=== PATIENT | male | born 1980 | race Caucasian/White ===

== ENCOUNTER → 2016-12-06 | Outpatient (CLI) | payer MEDICAID | LOC: RAD 09:57 | PROVIDERS: ATTEND Specialist | DX: C67.9 Malignant neoplasm of bladder, unspecified (principal) | CPT/HCPCS: 74177; 82565 ==

== ENCOUNTER 2016-12-25 11:16 | Emergency (ER) | payer MEDICAID ==
[2016-12-25] MEDS ORDERED: OXYCODONE-ACETAMINOPHEN 5-325 MG TABLET PO ONE (11:40)
--- NOTE | 2016-12-25 11:42 | ER Document Report ---
ED Medical Screen (RME) - General Chief Complaint: Urinary Problem Stated Complaint: BLOOD IN URINE Mode of Arrival: Ambulatory Information source: Patient Notes: Patient presents to the emergency department with complaints of left-sided flank pain history of bladder cancer. No chemo for the past year reports last CT and he was clear. This morning woke up with hematuria. Patient's is very emotional crying worried the bladder cancer is back. TRAVEL OUTSIDE OF THE [place] IN LAST 30 DAYS: No - Related Data Allergies/Adverse Reactions: No Known Allergies Allergy (Verified 12/25/16 11:35) Past Medical History - Past Medical History Cardiac Medical History: Reports: Hx Hypertension Renal/ Medical History: Denies: Hx Peritoneal Dialysis Past Surgical History: Reports: Hx Urinary Tract Surgery - bladder 01/16/16 --[facility] - Immunizations Hx Diphtheria, Pertussis, Tetanus Vaccination: Yes Physical Exam - Vital signs Vitals: Temp Pulse Resp BP Pulse Ox 98.0 F 80 12 127/81 H 100 12/25/16 11:28 12/25/16 11:28 12/25/16 11:28 12/25/16 11:28 12/25/16 11:28 Course - Vital Signs Vital signs: Temp Pulse Resp BP Pulse Ox 98.0 F 80 12 127/81 H 100 12/25/16 11:28 12/25/16 11:28 12/25/16 11:28 12/25/16 11:28 12/25/16 11:28
[2016-12-25 12:24] LABS: APPEARANCE,URINE SLIGHTLY-CLOUDY; BILIRUBIN,URINE NEGATIVE (NEGATIVE); GLUCOSE, URINE NEGATIVE (NEGATIVE); KETONES,URINE NEGATIVE (NEGATIVE); LEUKOCYTE ESTERASE,URINE TRACE (NEGATIVE); NITRITE,URINE NEGATIVE (NEGATIVE); PROTEIN,URINE 100 mg/dL (NEGATIVE); URINE SPECIFIC GRAVITY 1.008; UROBILINOGEN,URINE NEGATIVE mg/dL (<2.0)
[2016-12-25 12:46] LABS: ABSOLUTE EOSINOPHILS # (AUTO) 0.1 10^3/uL (0.0-0.6); ABSOLUTE LYMPHOCYTES (AUTO) 3.8 10^3/uL (0.5-4.7); ABSOLUTE MONOCYTES (AUTO) 0.9 10^3/uL (0.1-1.4); ABSOLUTE NEUT (AUTO) 8.3 10^3/uL (1.7-8.2); BASOPHILS % (AUTO) 0.2 % (0-2); EOSINOPHILS % (AUTO) 0.9 % (0-6); HEMATOCRIT 48.7 % (37.9-51.0); HEMOGLOBIN 16.8 g/dL (13.5-17.0); HGB HCT DIFFERENCE 1.7; LYMPHOCYTES % (AUTO) 28.9 % (13-45); MEAN CORPUSCULAR HEMOGLOBIN 32.2 pg (27.0-33.4); MEAN CORPUSCULAR HGB CONC 34.4 g/dL (32.0-36.0); MEAN CORPUSCULAR VOLUME 94 fl (80-97); MONOCYTES % (AUTO) 6.6 % (3-13); RED BLOOD COUNT 5.21 10^6/uL (4.35-5.55); SEGMENTED NEUTROPHILS % (AUTO) 63.4 % (42-78)
[2016-12-25 12:51] LABS: PROTHROMBIN TIME 12.7 SEC (11.4-15.4)
[2016-12-25 12:52] LABS: PARTIAL THROMBOPLASTIN TIME 32.6 SEC (23.5-35.8)
[2016-12-25 12:53] LABS: ADD ON TESTING BLD IN LAB ACKNOWLEDGE
[2016-12-25 13:07] LABS: ALANINE AMINOTRANSFERASE 218 U/L (21-72); ALBUMIN 5.6 g/dL (3.5-5.0); ALKALINE PHOSPHATASE 110 U/L (38-126); ANION GAP 16 (5-19); ASPARTATE AMINO TRANSFERASE 158 U/L (17-59); BILIRUBIN,TOTAL 1.2 mg/dL (0.2-1.3); BLOOD UREA NITROGEN 19 mg/dL (7-20); CALCIUM 10.5 mg/dL (8.4-10.2); CARBON DIOXIDE 19 mmol/L (22-30); CHLORIDE 113 mmol/L (98-107); CREATININE RESULT 1.47 mg/dL (0.52-1.25); GLUCOSE 88 mg/dL (75-110); POTASSIUM 4.8 mmol/L (3.6-5.0); SODIUM 148.2 mmol/L (137-145); TOTAL PROTEIN 9.8 g/dL (6.3-8.2)
[2016-12-25 13:12] LABS: ALCOHOL 255 mg/dL (NONE DETECTED)
[2016-12-25 13:22] LABS: URINE BARBITURATES SCREEN NEGATIVE; URINE METHADONE SCREEN NEGATIVE; URINE OPIATES LOW NEGATIVE; URINE PHENCYCLIDINE SCREEN NEGATIVE
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
[2016-12-25 16:18] VITALS: BP 128/80
== END 2016-12-25 16:18 | disposition home or self-care (01) ==
LOC: ER 11:16
DX: R31.9 Hematuria, unspecified (principal); R10.9 Unspecified abdominal pain; F17.200 Nicotine dependence, unspecified, uncomplicated; I10 Essential (primary) hypertension; F10.129 Alcohol abuse with intoxication, unspecified; Y90.8 Blood alcohol level of 240 mg/100 ml or more; Y04.0XXA Assault by unarmed brawl or fight, initial encounter; Z85.51 Personal history of malignant neoplasm of bladder; Z90.6 Acquired absence of other parts of urinary tract
CPT/HCPCS: 36415; 74176; 80053; 80307; 81001; 85025; 85610; 85730; 99284

== ENCOUNTER 2017-03-01 10:25 | Emergency (ER) | payer MEDICAID ==
[2017-03-01 10:41] VITALS: BP 126/80
--- NOTE | 2017-03-01 11:56 | ER Document Report ---
ED Medical Screen (RME) - General Chief Complaint: Flank Pain Stated Complaint: VOMITING AND FLANK PAIN Notes: Patient says his left kidney is "on fire". He says is been very painful for the past couple of days. Patient has significant past history with a diagnosis of bladder cancer with subsequent surgical removal of his bladder in 2014. He is currently followed at [facility] in [place] for this condition, last visit was several months ago.. The says that he's been told he has chronic hydronephrosis of the left kidney. He self catheterizes himself 3-4 times a day as needed. Has been to this ER for the same condition. Patient has had some coughing and says he's seen some blood with coughing. Patient denies any urinary burning or blood present. Has not had a fever. Patient has a history of anxiety and attention deficit disorder, on Klonopin and Adderall. Is scheduled to be seen at [facility], on March 10, but says he doesn't know if he can afford the $200 initial feet. TRAVEL OUTSIDE OF THE [place] IN LAST 30 DAYS: No - Related Data Allergies/Adverse Reactions: No Known Allergies Allergy (Verified 03/01/17 10:37) Past Medical History - Past Medical History Cardiac Medical History: Reports: Hx Hypertension Renal/ Medical History: Denies: Hx Peritoneal Dialysis Past Surgical History: Reports: Hx Urinary Tract Surgery - bladder 01/16/16 --[facility] - Immunizations Hx Diphtheria, Pertussis, Tetanus Vaccination: Yes Physical Exam - Vital signs Vitals: Temp Pulse Resp BP Pulse Ox 98.7 F 98 20 126/80 H 99 03/01/17 10:39 03/01/17 10:39 03/01/17 10:39 03/01/17 10:39 03/01/17 10:39 Course - Vital Signs Vital signs: Temp Pulse Resp BP Pulse Ox 98.7 F 98 20 126/80 H 99 03/01/17 10:39 03/01/17 10:39 03/01/17 10:39 03/01/17 10:39 03/01/17 10:39
[2017-03-01 12:10] LABS: ABSOLUTE BASOPHILS # (AUTO) 0.1 10^3/uL (0.0-0.2); ABSOLUTE EOSINOPHILS # (AUTO) 0.8 10^3/uL (0.0-0.6); ABSOLUTE LYMPHOCYTES (AUTO) 2.8 10^3/uL (0.5-4.7); ABSOLUTE NEUT (AUTO) 10.1 10^3/uL (1.7-8.2); BASOPHILS % (AUTO) 0.5 % (0-2); EOSINOPHILS % (AUTO) 5.7 % (0-6); HEMOGLOBIN 15.4 g/dL (13.5-17.0); HGB HCT DIFFERENCE 1.2; MEAN CORPUSCULAR HGB CONC 34.2 g/dL (32.0-36.0); MEAN CORPUSCULAR VOLUME 94 fl (80-97); MONOCYTES % (AUTO) 6.9 % (3-13); RED CELL DISTRIBUTION WIDTH 13.7 % (11.5-14.0); SEGMENTED NEUTROPHILS % (AUTO) 67.9 % (42-78); WHITE BLOOD COUNT 14.8 10^3/uL (4.0-10.5)
[2017-03-01 12:26] LABS: AMORPHOUS SEDIMENT,URINE TRACE /HPF; APPEARANCE,URINE CLOUDY; BILIRUBIN,URINE NEGATIVE (NEGATIVE); GLUCOSE, URINE NEGATIVE (NEGATIVE); KETONES,URINE NEGATIVE (NEGATIVE); LEUKOCYTE ESTERASE,URINE MODERATE (NEGATIVE); NITRITE,URINE NEGATIVE (NEGATIVE); PROTEIN,URINE 30 mg/dL (NEGATIVE); URINE SPECIFIC GRAVITY 1.009; UROBILINOGEN,URINE NEGATIVE mg/dL (<2.0)
[2017-03-01 12:28] LABS: ALANINE AMINOTRANSFERASE 98 U/L (21-72); ALBUMIN 5.2 g/dL (3.5-5.0); ALKALINE PHOSPHATASE 129 U/L (38-126); ANION GAP 15 (5-19); ASPARTATE AMINO TRANSFERASE 64 U/L (17-59); BILIRUBIN,DIRECT 0.5 mg/dL (0.0-0.4); BILIRUBIN,TOTAL 2.3 mg/dL (0.2-1.3); BLOOD UREA NITROGEN 20 mg/dL (7-20); CALCIUM 10.8 mg/dL (8.4-10.2); CARBON DIOXIDE 25 mmol/L (22-30); CHLORIDE 106 mmol/L (98-107); CREATININE RESULT 1.38 mg/dL (0.52-1.25); GLUCOSE 95 mg/dL (75-110); LIPASE 37.8 U/L (23-300); POTASSIUM 4.5 mmol/L (3.6-5.0); SODIUM 145.7 mmol/L (137-145); TOTAL PROTEIN 9.3 g/dL (6.3-8.2)
[2017-03-01 14:09] LABS: URINE BARBITURATES SCREEN NEGATIVE; URINE METHADONE SCREEN NEGATIVE; URINE OPIATES LOW NEGATIVE; URINE PHENCYCLIDINE SCREEN NEGATIVE
== END 2017-03-01 13:00 | disposition left against medical advice (07) ==
LOC: ER 10:25
DX: Z53.9 Procedure and treatment not carried out, unspecified reason (principal); R10.9 Unspecified abdominal pain; R11.10 Vomiting, unspecified
CPT/HCPCS: 36415; 71020; 74176; 80053; 80307; 81001; 83690; 85025; 99281

== ENCOUNTER 2017-03-02 09:45 | Emergency (ER) | payer MEDICAID ==
--- NOTE | 2017-03-02 10:36 | ER Document Report ---
ED Medical Screen (RME) - General Chief Complaint: Flank Pain Stated Complaint: FLANK PAIN Notes: Patient was seen here last night, but left before his treatment was complete. He was complaining of left flank pain. A significant history is that he had his bladder removed for cancer of the bladder. He's had subsequent problems with hydronephrosis of the left kidney and ureter. He is followed at [facility] in [place]. His results from last night's CT scan of the abdomen and chest x- ray and lab work revealed a likely UTI, elevated white count, a nodule in both his left and right lungs, possible infiltrate in his lung, and a drug screen positive for benzos, marijuana, and cocaine. We had set this patient's chart aside with the intent to call him today to tell them to come back to finish his evaluation and treatment, and he just returned this morning on his own without being called. Says he left last night because it was too busy and he waited too long and also that he was scared of what the outcome of his workup might show. TRAVEL OUTSIDE OF THE [place] IN LAST 30 DAYS: No - Related Data Allergies/Adverse Reactions: No Known Allergies Allergy (Verified 03/01/17 10:37) Past Medical History - Past Medical History Cardiac Medical History: Reports: Hx Hypertension Renal/ Medical History: Denies: Hx Peritoneal Dialysis Past Surgical History: Reports: Hx Urinary Tract Surgery - bladder 01/16/16 --[facility] - Immunizations Hx Diphtheria, Pertussis, Tetanus Vaccination: Yes Physical Exam - Vital signs Vitals: Temp Pulse Resp BP Pulse Ox 98.2 F 97 20 117/76 96 03/02/17 10:00 03/02/17 10:03/02/17 10:00 03/02/17 10:00 03/02/17 10:00 Course - Vital Signs Vital signs: Temp Pulse Resp BP Pulse Ox 98.2 F 97 20 117/76 96 03/02/17 10:00 03/02/17 10:00 03/02/17 10:00 03/02/17 10:00 03/02/17 10:00
[2017-03-02 11:01] LABS: ABSOLUTE EOSINOPHILS # (AUTO) 1.1 10^3/uL (0.0-0.6); ABSOLUTE LYMPHOCYTES (AUTO) 3.1 10^3/uL (0.5-4.7); ABSOLUTE MONOCYTES (AUTO) 1.1 10^3/uL (0.1-1.4); ABSOLUTE NEUT (AUTO) 8.4 10^3/uL (1.7-8.2); BASOPHILS % (AUTO) 0.3 % (0-2); HEMATOCRIT 42.8 % (37.9-51.0); HGB HCT DIFFERENCE 2.2; LYMPHOCYTES % (AUTO) 22.4 % (13-45); MEAN CORPUSCULAR HEMOGLOBIN 32.3 pg (27.0-33.4); MEAN CORPUSCULAR HGB CONC 34.9 g/dL (32.0-36.0); MEAN CORPUSCULAR VOLUME 93 fl (80-97); MONOCYTES % (AUTO) 7.8 % (3-13); RED BLOOD COUNT 4.63 10^6/uL (4.35-5.55); SEGMENTED NEUTROPHILS % (AUTO) 61.5 % (42-78); WHITE BLOOD COUNT 13.7 10^3/uL (4.0-10.5)
[2017-03-02 11:10] LABS: ALANINE AMINOTRANSFERASE 76 U/L (21-72); ALBUMIN 4.7 g/dL (3.5-5.0); ALKALINE PHOSPHATASE 119 U/L (38-126); ANION GAP 16 (5-19); ASPARTATE AMINO TRANSFERASE 46 U/L (17-59); BILIRUBIN,DIRECT 0.3 mg/dL (0.0-0.4); BLOOD UREA NITROGEN 22 mg/dL (7-20); CALCIUM 10.1 mg/dL (8.4-10.2); CARBON DIOXIDE 22 mmol/L (22-30); CHLORIDE 107 mmol/L (98-107); CREATININE RESULT 1.49 mg/dL (0.52-1.25); GLUCOSE 93 mg/dL (75-110); LIPASE 48.9 U/L (23-300); POTASSIUM 4.2 mmol/L (3.6-5.0); SODIUM 144.9 mmol/L (137-145); TOTAL PROTEIN 8.2 g/dL (6.3-8.2)
[2017-03-02 11:15] LABS: APPEARANCE,URINE SLIGHTLY-CLOUDY; BILIRUBIN,URINE NEGATIVE (NEGATIVE); GLUCOSE, URINE NEGATIVE (NEGATIVE); KETONES,URINE NEGATIVE (NEGATIVE); LEUKOCYTE ESTERASE,URINE LARGE (NEGATIVE); NITRITE,URINE NEGATIVE (NEGATIVE); PROTEIN,URINE 30 mg/dL (NEGATIVE); URINE SPECIFIC GRAVITY 1.009; UROBILINOGEN,URINE NEGATIVE mg/dL (<2.0)
--- NOTE | 2017-03-02 11:21 | ER Document Report ---
ED GI/ - General Mode of Arrival: Ambulatory Information source: Patient TRAVEL OUTSIDE OF THE [place] IN LAST 30 DAYS: No - HPI Patient complains to provider of: Flank pain - left Onset: Other - 1 week ago Location: Left flank Associated symptoms: Other - see notes above <BANDAR OSEI - Last Filed: 03/02/17 11:30> <SHARITA MARTIN - Last Filed: 03/02/17 12:13> - General Chief Complaint: Flank Pain Stated Complaint: FLANK PAIN Notes: 36 year old male with history of bladder cancer (2014) presents to the ED complaining of left CVA tenderness that started 1 week ago and has gotten progressively worse. Patient reports that he "knows its kidney pain" since he has a history of kidney infections and UTIs. Patient self-caths 3-4 times a day secondary to the bladder surgery. Patient is additionally complaining of vomiting and coughing up blood. Patient was seen at the ED yesterday where a CT scan and Xray were preformed and showed possible UTI, but left because it was too busy. Patient is currently taking adderall, klonopin, paxil, and 5 mg percocet. Patient reports that he is trying to wean off the pain medications and is taking significantly less medication than he was before. Patient receives follow up care to his bladder cancer at [facility] and see's Dr. Mares as his local oncologist. Patient has an appointment with Dr. Mares in a couple days. (BANDAR OSEI) - Related Data Allergies/Adverse Reactions: No Known Allergies Allergy (Verified 03/01/17 10:37) Past Medical History - General Information source: Patient - Social History Smoking Status: Current Every Day Smoker Family History: Reviewed & Not Pertinent, Malignancy - Past Medical History Cardiac Medical History: Reports: Hx Hypertension Renal/ Medical History: Denies: Hx Peritoneal Dialysis Malignancy Medical History: Reports Other - Bladder Cancer Past Surgical History: Reports: Hx Urinary Tract Surgery - bladder 01/16/16 --[facility] - Immunizations Hx Diphtheria, Pertussis, Tetanus Vaccination: Yes <BANDAR OSEI - Last Filed: 03/02/17 11:30> Review of Systems - Review of Systems Constitutional: No symptoms reported EENT: No symptoms reported Cardiovascular: No symptoms reported Respiratory: See HPI, Hemoptysis Gastrointestinal: See HPI, Vomiting Genitourinary: See HPI, Flank pain - left Male Genitourinary: No symptoms reported Musculoskeletal: No symptoms reported Skin: No symptoms reported Hematologic/Lymphatic: No symptoms reported Neurological/Psychological: No symptoms reported -: Yes All other systems reviewed and negative <BANDAR OSEI - Last Filed: 03/02/17 11:30> Physical Exam <BANDAR OSEI - Last Filed: 03/02/17 11:30> <SHARITA MARTIN - Last Filed: 03/02/17 12:13> - Vital signs Vitals: Temp Pulse Resp BP Pulse Ox 98.2 F 97 20 117/76 96 03/02/17 10:00 03/02/17 10:00 03/02/17 10:00 03/02/17 10:00 03/02/17 10:00 - Notes Notes: GENERAL: VS as per nursing doc. Well-appearing, well-nourished and in no acute distress. HEAD: Atraumatic, normocephalic. EYES: Sclera anicteric, no conjunctival injection or discharge. ENT: Moist mucous membranes. NECK: Supple without lymphadenopathy. LUNGS: Breath sounds clear to auscultation bilaterally and equal. No wheezes rales or rhonchi. HEART: Regular rate and rhythm without murmurs. ABDOMEN: Soft, some tenderness as you approach the very far left abdomen. No guarding, no rebound. No masses appreciated. No [place] sign. BACK: Exquisite tenderness to even light skin palpation of the left CVA and left lateral abdomen. EXTREMITIES: Normal range of motion, no calf tenderness, no edema. NEUROLOGICAL: Cranial nerves grossly intact. Normal speech. Normal sensory and motor exams. No gross cerebellar abnormalities. PSYCH: Normal mood, normal affect. SKIN: Warm, dry, normal turgor, no lesions noted. (SHARITA MARTIN) Course - Laboratory Result Diagrams: 03/02/17 10:39 03/02/17 10:39 <FARNAZBANDAR - Last Filed: 03/02/17 11:30> - Laboratory Result Diagrams: 03/02/17 10:39 03/02/17 10:39 <SHARITA MARTIN - Last Filed: 03/02/17 12:13> - Re-evaluation Re-evalutation: 03/02/17 11:37 Records reviewed. His creatinine appears mostly stable. White blood cell count continues to be elevated. With his left flank pain we will treat this as pyelonephritis. I did review the controlled substance database. Patient states he only has 2-3 pain pills left. It appears he has been weaning down slowly off the oxycodone over the months and at one point this year was on fentanyl patch. Concerning though was he had 30 Percocet 5 mg prescribed and filled 6 days ago. As well his drug screen was positive for marijuana and cocaine. He needs to follow up regarding the pulmonary nodules and hemoptysis of course. I will discuss lifestyle changes with the patient as well. He voices understanding of follow-up needs and will see Dr. Mares in follow-up. 03/02/17 12:04 Discussed with patient findings. Discussed with him as well by Modifications As Noted. He States He Has Been Taking More Percocet Secondary to the Pain but He Was Able to Mow Yesterday. He Has Had a Little Bit of Cough No Further Hemoptysis. Will Place Him on Levaquin to Cover Both. (SHARITA MARTIN) - Vital Signs Vital signs: Temp Pulse Resp BP Pulse Ox 98.2 F 97 20 117/76 96 03/02/17 10:00 03/02/17 10:00 03/02/17 10:00 03/02/17 10:00 03/02/17 10:00 - Laboratory Laboratory results interpreted by ri: 03/02/17 03/02/17 03/02/17 10:39 10:39 10:39 WBC 13.7 H Eosinophils % 8.0 H Absolute Neutrophils 8.4 H Absolute Eosinophils 1.1 H BUN 22 H Creatinine 1.49 H Est GFR (Non-Af Amer) 54 L Total Bilirubin 2.0 H ALT 76 H Urine Protein 30 H Ur Leukocyte Esterase LARGE H Discharge <BANDAR OSEI - Last Filed: 03/02/17 11:30> <SHARITA MARTIN - Last Filed: 03/02/17 12:13> - Discharge Clinical Impression: Pyelonephritis, acute, Abnormal drug screen, Pulmonary nodule Condition: Good Disposition: HOME, SELF-CARE Additional Instructions: You need to follow up with [facility] as well for follow-up of the pulmonary nodules. Contact Dr. Mares tomorrow for follow-up arrangements as well. Return for worsening or concern. All medications prescribed should be taken as directed on the label. Any medication may cause side effects. If an adverse effect occurs, notify your doctor or return to the emergency room.~ Narcotics or sedatives may cause drowsiness, therefore, you should not drive, operate machinery, climb ladders, etc. Alcohol should never be used while taking these medications.~ Pain medications also can cause significant constipation so you should use a stool softener if you are using any significant amount.~ Antibiotics should be taken until the entire amount is finished. Unless specifically told otherwise, continue any routine medicines like blood pressure pills, hormones, etc. Be sure you have informed us about any medicines you are taking and any allergies. Also, ensure you let your pharmacy and physician know of any medication changes or additional medications during the next business day to help keep records consistent and ensure your medication safety. Prescriptions: Promethazine HCl [Phenergan 25 mg Tablet] 25 mg PO Q4HP PRN #10 tablet PRN Reason: Levofloxacin [Levaquin 750 mg Tablet] 750 mg PO DAILY #10 tablet Referrals: JAZMIN MARES MD [ACTIVE STAFF] - Follow up tomorrow Scribe Documentation - Scribe Written by Riley:: Riley Hahn, 03/02/2017 1130 acting as scribe for :: Yasmin <BANDAR OSEI - Last Filed: 03/02/17 11:30>
[2017-03-02] MEDS ORDERED: MORPHINE SULFATE 10 MG/ML INJ IV ONE (11:23)
[2017-03-02] MEDS ORDERED: ONDANSETRON HCL INJ/PF 4 MG/2 ML SDV IV ONE (11:24)
[2017-03-02] MEDS ORDERED: CEFTRIAXONE INJ 1000 MG VIAL IV ONE (11:24)
[2017-03-02] MEDS ORDERED: NORMAL SALINE 1000 ML 1,000 ML IV ONE (11:47)
[2017-03-02 12:52] VITALS: BP 128/67
== END 2017-03-02 13:10 | disposition home or self-care (01) ==
LOC: ER 09:45
DX: N12 Tubulo-interstitial nephritis, not specified as acute or chronic (principal); R91.1 Solitary pulmonary nodule; R10.9 Unspecified abdominal pain; Z85.51 Personal history of malignant neoplasm of bladder; Z79.899 Other long term (current) drug therapy; F17.200 Nicotine dependence, unspecified, uncomplicated
CPT/HCPCS: 99284; 96361; 96375; 96365; 36415; 87040; 87086; 83690; 85025; 87088; 80053; 81001; 87186; J2270; J0696; J2405; J7030

== ENCOUNTER 2017-03-30 01:57 | Emergency (ER) | payer MEDICAID ==
[2017-03-30] MEDS ORDERED: HYDROMORPHONE HCL INJ/PF 2 MG/ML AMPULE IV ONE (03:16)
[2017-03-30] MEDS ORDERED: PROMETHAZINE HCL INJ 25 MG/1 ML VIAL IM ONE (03:16)
[2017-03-30] MEDS ORDERED: PROMETHAZINE HCL INJ 50 MG/1 ML VIAL ONE (03:28)
[2017-03-30 04:18] LABS: APPEARANCE,URINE CLOUDY; BILIRUBIN,URINE NEGATIVE (NEGATIVE); GLUCOSE, URINE NEGATIVE (NEGATIVE); KETONES,URINE NEGATIVE (NEGATIVE); LEUKOCYTE ESTERASE,URINE LARGE (NEGATIVE); NITRITE,URINE POSITIVE (NEGATIVE); PROTEIN,URINE 100 mg/dL (NEGATIVE); URINE SPECIFIC GRAVITY 1.009; UROBILINOGEN,URINE NEGATIVE mg/dL (<2.0)
[2017-03-30] MEDS ORDERED: SULFAMETHOXAZOLE/TRIMETHOPRIM 800-160 MG TABLET PO ONE (04:53)
[2017-03-30] MEDS ORDERED: HYDROMORPHONE HCL INJ/PF 2 MG/ML AMPULE IM ONE (04:53)
--- NOTE | 2017-03-30 05:06 | ER Document Report ---
ED General - General Chief Complaint: Back Pain Stated Complaint: BACK PAIN Time Seen by Provider: 03/30/17 02:59 Notes: Patient is a pleasant 36-year-old male who presents with complaint of back pain. He says his of the back pain for approximately 2 weeks. He was recently just diagnosed with lymphoma. He is followed by Dr. Morales. He says that they feel that is probably related to his lymphoma. He starts chemotherapy this week. His follow-up appointment with his oncologist this week. He is on opiate pain medicines including oxycodone and fentanyl patch. He denies any weakness or numbness into his legs. No difficulty with bowel control. He has an ileal conduit bladder due to history of bladder cancer. He says he has burning when he pees but this is chronic. He says he has recurrent UTIs. His last urinary tract infection was MRSA. He fears that he may still have an infection. He has had no fevers. He has some vomiting due to the pain. No diarrhea. No other complaints at this time. TRAVEL OUTSIDE OF THE [place] IN LAST 30 DAYS: No - Related Data Allergies/Adverse Reactions: No Known Allergies Allergy (Verified 03/01/17 10:37) Home Medications: Current Home Medications Clonazepam [Clonazepam] 1 mg PO Q8HP PRN 03/30/17 [History] Dextroamphetamine/Amphetamine [Adderall XR 20 mg Capsule] 1 cap.sr PO BID [History] Oxycodone HCl [Oxycodone HCl] 15 mg PO Q4HP PRN 03/30/17 [History] Paroxetine HCl [Paxil 20 mg Tablet] 20 mg PO DAILY 03/30/17 [History] Past Medical History - Social History Smoking Status: Unknown if Ever Smoked Frequency of alcohol use: None Drug Abuse: None Family History: Reviewed & Not Pertinent, Malignancy Patient has suicidal ideation: No Patient has homicidal ideation: No - Past Medical History Cardiac Medical History: Reports: Hx Hypertension Renal/ Medical History: Denies: Hx Peritoneal Dialysis Past Surgical History: Reports: Hx Urinary Tract Surgery - bladder 01/16/16 --[facility] - Immunizations Hx Diphtheria, Pertussis, Tetanus Vaccination: Yes Review of Systems - Review of Systems Notes: My Normal Review Basic REVIEW OF SYSTEMS: CONSTITUTIONAL : Denies fever, chills, or sweats. Denies recent illness. RESPIRATORY: Denies cough, cold, or chest congestion. Denies shortness of breath, difficulty breathing, or wheezing. GASTROINTESTINAL: Denies abdominal pain. Some vomiting. Denies constipation. Last BM: GENITOURINARY: Dysuria MUSCULOSKELETAL: Back pain SKIN: Denies rash or skin lesions. NEUROLOGICAL: Denies sensory or motor loss. ALL OTHER SYSTEMS REVIEWED AND NEGATIVE. Physical Exam - Vital signs Vitals: Temp Pulse Resp BP Pulse Ox 97.9 F 86 18 128/76 H 99 03/30/17 02:09 03/30/17 02:09 03/30/17 02:09 03/30/17 02:03/30/17 02:09 - Notes Notes: General Appearance: Well nourished, alert, cooperative, no acute distress, moderate to severe obvious discomfort. Vitals: reviewed, See vital signs table. Eyes: PERRL, EOMI, Conjuctiva clear Lungs: No wheezing, No rales, No rhonci, No accessory muscle use, good air exchange bilaterally. Heart: Normal rate, Regular rythm, No murmur, no rub Abdomen: Normal BS, soft, No rigidity, No abdominal tenderness, No guarding, no rebound, no abdominal masses, no organomegaly Back: Pain to palpation mainly over the lower thoracic paraspinal musculature on the left side. Extremities: strength 5/5 in all extremities, good pulses in all extremities, no swelling or tenderness in the extremities, no edema. Good strength in lower extremities. Skin: warm, dry, appropriate color, no rash Neuro: speech clear, oriented x 3, normal affect, responds appropriately to questions. Good distal sensation. Course - Vital Signs Vital signs: Temp Pulse Resp BP Pulse Ox 97.9 F 86 18 128/76 H 99 03/30/17 02:09 03/30/17 02:09 03/30/17 02:09 03/30/17 02:09 03/30/17 02:09 - Laboratory Laboratory results interpreted by me: 03/30/17 03:54 Urine Protein 100 H Urine Blood SMALL H Urine Nitrite POSITIVE H Ur Leukocyte Esterase LARGE H - Transfer of Care Notes: 03/30/17 05:59 After the pain medicine and Phenergan patient is feeling better. His nausea is gone. He still has some pain but says it is much improved. He was able to stand and walk. He walks well with a slightly guarded gait. No foot drop. He has no signs of cauda equina syndrome. I do suspect this pain probably is related to lymphoma. His urinalysis does show infection which is not surprising being he has an ileal conduit bladder. Will place him on Bactrim due to his history of MRSA urinary tract infections. I encouraged him to follow -up with Dr. Morales and his urologist. Patient has an appointment Dr. Morales this week. Patient did call her on Friday to inform her his visit to the ER for further treatment recommendations. Patient encouraged to return to ER medially for has worsening pain or feels unwell. Patient agrees with plan will be discharged home. Dictation of this chart was performed using voice recognition software; therefore, there may be some unintended grammatical errors. Discharge - Discharge Clinical Impression: Back pain Qualifiers: Back pain location: thoracic back pain Chronicity: acute Back pain laterality: left Qualified Code(s): M54.6 - Pain in thoracic spine UTI (urinary tract infection) Qualifiers: Urinary tract infection type: site unspecified Hematuria presence: without hematuria Qualified Code(s): N39.0 - Urinary tract infection, site not specified Condition: Good Disposition: HOME, SELF-CARE Additional Instructions: Please call Dr. Morales Friday morning for a close follow up appointment. Please return to the ER immediately if you have worsening pain, fevers, vomiting, or feel unwell. Prescriptions: Promethazine HCl [Phenergan 25 mg Tablet] 1 - 2 tab PO Q6H PRN #15 tablet PRN Reason: Sulfamethoxazole/Trimethoprim [Bactrim Ds Tablet] 1 each PO BID #14 tablet
[2017-03-30 06:41] VITALS: BP 126/82
== END 2017-03-30 05:13 | disposition home or self-care (01) ==
LOC: ER 01:57
DX: N39.0 Urinary tract infection, site not specified (principal); M54.6 Pain in thoracic spine; M54.9 Dorsalgia, unspecified; R11.10 Vomiting, unspecified; Z79.899 Other long term (current) drug therapy
CPT/HCPCS: 96376; 99283; 96372; 96374; 87086; 81001; 87186; J1170; J2550; J3490

== ENCOUNTER 2017-04-09 07:42 | Day surgery (SDC) | payer MEDICAID ==
[~2017-04-09 07:42] MED LIST: PROPOFOL INJ 200 MG/20 ML VIAL IV ONE
[2017-04-09 09:38] VITALS: BP 138/80
--- NOTE | 2017-04-09 10:41 | Operative Report ---
Operative Report DATE OF SURGERY: 04/09/17 Operative Report: The risks benefits and alternatives of the procedure explained to the patient in detail and informed consent is obtained.A GIF Olympus video scope was inserted into the patient's mouth and hypopharynx, the esophagus is identified intubated and insufflated ,the scope was then advanced through the esophagus stomach and duodenum, retroflexion maneuver is done ,the esophagus stomach and first and second portions of the duodenum examined PREOPERATIVE DIAGNOSIS: Epigastric pain POSTOPERATIVE DIAGNOSIS: Karen esophagitis status post brushing. Gastritis status post biopsy rule out Helicobacter pylori OPERATION: EGD with biopsy SURGEON: AIDAN RENTERIA ANESTHESIA: LMAC TISSUE REMOVED OR ALTERED: Gastric specimen obtained rule out Helicobacter pylori COMPLICATIONS: None. ESTIMATED BLOOD LOSS: None. INTRAOPERATIVE FINDINGS: As described above. PROCEDURE: Patient tolerated the procedure well. No immediate postprocedure complications are noted. Patient discharged in good condition. Discharge date 04/09/2017. Discharge diet: Regular. Discharge activity: Regular. 2-3 week follow-up to discuss findings. We will wait on biopsies. Patient is instructed to call the office or proceed to the emergency room should there be any further problems or questions.
== END 2017-04-09 09:20 | disposition home or self-care (01) ==
LOC: END 07:42
PROVIDERS: ATTEND Internal Medicine Gastroenterology
PROC: 0DB68ZX Excision of Stomach, Via Natural or Artificial Opening Endoscopic, Diagnostic (ICD-10-PCS; principal; 2017-04-09 09:00)
DX: K29.50 Unspecified chronic gastritis without bleeding (principal); B19.20 Unspecified viral hepatitis C without hepatic coma; F17.210 Nicotine dependence, cigarettes, uncomplicated; Z79.899 Other long term (current) drug therapy; Z79.891 Long term (current) use of opiate analgesic; Z85.51 Personal history of malignant neoplasm of bladder
CPT/HCPCS: 43239; 87210; 88305 ×2; J2704; 740

== ENCOUNTER 2017-04-12 08:40 | Emergency (ER) | payer MEDICAID ==
[2017-04-12 09:41] LABS: ABSOLUTE BASOPHILS # (AUTO) 0.1 10^3/uL (0.0-0.2); ABSOLUTE LYMPHOCYTES (AUTO) 3.7 10^3/uL (0.5-4.7); ABSOLUTE MONOCYTES (AUTO) 1.4 10^3/uL (0.1-1.4); ABSOLUTE NEUT (AUTO) 8.7 10^3/uL (1.7-8.2); BASOPHILS % (AUTO) 0.5 % (0-2); EOSINOPHILS % (AUTO) 6.9 % (0-6); HEMATOCRIT 36.1 % (37.9-51.0); HGB HCT DIFFERENCE -0.1; LYMPHOCYTES % (AUTO) 24.8 % (13-45); MEAN CORPUSCULAR HGB CONC 33.3 g/dL (32.0-36.0); MEAN CORPUSCULAR VOLUME 90 fl (80-97); MONOCYTES % (AUTO) 9.5 % (3-13); RED BLOOD COUNT 4.01 10^6/uL (4.35-5.55); RED CELL DISTRIBUTION WIDTH 12.7 % (11.5-14.0); SEGMENTED NEUTROPHILS % (AUTO) 58.3 % (42-78); WHITE BLOOD COUNT 14.9 10^3/uL (4.0-10.5)
[2017-04-12 09:47] LABS: APPEARANCE,URINE SLIGHTLY-CLOUDY; BILIRUBIN,URINE NEGATIVE (NEGATIVE); GLUCOSE, URINE NEGATIVE (NEGATIVE); KETONES,URINE NEGATIVE (NEGATIVE); LEUKOCYTE ESTERASE,URINE TRACE (NEGATIVE); NITRITE,URINE NEGATIVE (NEGATIVE); PROTEIN,URINE NEGATIVE (NEGATIVE); URINE SPECIFIC GRAVITY 1.006; UROBILINOGEN,URINE NEGATIVE mg/dL (<2.0)
[2017-04-12] MEDS ORDERED: NORMAL SALINE 1000 ML 1,000 ML IV ONE (09:52)
[2017-04-12 10:02] LABS: ALANINE AMINOTRANSFERASE 36 U/L (21-72); ALBUMIN 3.3 g/dL (3.5-5.0); ALKALINE PHOSPHATASE 98 U/L (38-126); ASPARTATE AMINO TRANSFERASE 28 U/L (17-59); BILIRUBIN,DIRECT 0.4 mg/dL (0.0-0.4); BILIRUBIN,TOTAL 0.8 mg/dL (0.2-1.3); BLOOD UREA NITROGEN 18 mg/dL (7-20); CALCIUM 9.3 mg/dL (8.4-10.2); CARBON DIOXIDE 26 mmol/L (22-30); CHLORIDE 104 mmol/L (98-107); CREATININE RESULT 0.98 mg/dL (0.52-1.25); GLUCOSE 90 mg/dL (75-110); LIPASE 38.2 U/L (23-300); POTASSIUM 3.3 mmol/L (3.6-5.0); TOTAL PROTEIN 6.9 g/dL (6.3-8.2)
[2017-04-12 10:04] LABS: ANION GAP 11 (5-19); SODIUM 140.9 mmol/L (137-145)
[2017-04-12] MEDS ORDERED: NORMAL SALINE 1000 ML 1,000 ML IV PRN (10:10)
[2017-04-12] MEDS ORDERED: METOCLOPRAMIDE HCL INJ/PF 10 MG/2 ML SDV IV ONE (10:10)
[2017-04-12] MEDS ORDERED: DIPHENHYDRAMINE HCL 50 MG/ML VIAL IV ONE (10:10)
[2017-04-12] MEDS ORDERED: KETOROLAC TROMETHAMINE INJ/PF 30 MG/1 ML SDV IV ONE (10:10)
[2017-04-12 10:33] LABS: URINE BARBITURATES SCREEN NEGATIVE; URINE METHADONE SCREEN NEGATIVE; URINE OPIATES LOW UNCONFIRMED POSITIVE; URINE PHENCYCLIDINE SCREEN NEGATIVE
--- NOTE | 2017-04-12 11:23 | RADIOLOGY REPORT (SQ) ---
EXAM DESCRIPTION: CT LTD RENAL STONE PROTOCOL ON COMPLETED DATE/TIME: 04/12/2017 10:44 am REASON FOR STUDY: left flank COMPARISON: CT abdomen pelvis 03/30/2015, 04/09/2015, 07/21/2015, 12/08/2015, 02/23/2016, 06/19/2016, 12/06 TECHNIQUE: CT scan of the abdomen and pelvis performed without intravenous or oral contrast. Images reviewed with lung, soft tissue, and bone windows. Reconstructed coronal and sagittal MPR images revi ewed. All images stored on PACS. All CT scanners at this facility use dose modulation, iterative reconstruction, and/or weight based d osing when appropriate to reduce radiation dose to as low as reasonably achievable (ALARA). [facility]: Dose Right [facility]: CareDose [facility]: Dose Right [facility]: Teradose 4D [facility]: [employer] RADIATION DOSE: 5.28mGy. LIMITATIONS: No oral or IV contrast. Slender patient without much mesenteric fat FINDINGS: LOWER CHEST: Multiple blunt the ill-defined nodules at both lung bases. These are more pr ominent than on 12/06/2016 and new compared to 06/19/2016 represent metastatic disease. Septic emboli or multifocal pneumonia could not be excluded. NON-CONTRASTED LIVER, SPLEEN, ADRENALS: Evaluation limited by lack of IV contrast. No identified sign ificant masses. PANCREAS: No masses. No peripancreatic inflammatory changes. GALLBLADDER: No identified stones by CT criteria. No inflammatory changes to suggest cholecystitis. RIGHT KIDNEY AND URETER: No suspicious masses. Assessment limited by lack of IV contrast. No signif icant calcifications. No hydronephrosis or hydroureter. LEFT KIDNEY AND URETER: There is left-sided hydronephrosis and hydroureter, and new compared to simil ar compared to CT exam 03/30/2015. AORTA AND RETROPERITONEUM: No aneurysm. No retroperitoneal masses or adenopathy. Multiple retroperit holbrook surgical clips are present BOWEL AND PERITONEAL CAVITY: No obvious masses or inflammatory changes. No free fluid. APPENDIX: Normal. PELVIS, BLADDER, AND ABDOMINAL WALL:Neobladder filled with urine. Multiple surrounding surgical clip s. No gross free pelvic fluid. No pelvic adenopathy. BONES: No significant findings. OTHER: No other significant finding. IMPRESSION: New bibasilar ill-defined alveolar nodules worrisome for metastatic disease. Focal pneu monia or septic emboli could cause this appearance. Left-sided hydronephrosis and hydroureter, similar compared to 2015 TECHNICAL DOCUMENTATION: JOB ID: [id number] Quality ID # [id number]: Final reports with documentation of one or more dose reduction techniques (e.g., Au tomated exposure control, adjustment of the mA and/or kV according to patient size, use of iterative reconstruction technique) 2010 [employer]- All Rights Reserved
[2017-04-12] MEDS ORDERED: HYDROMORPHONE HCL INJ/PF 2 MG/ML AMPULE IV ONE (11:55)
--- NOTE | 2017-04-12 12:01 | ER Document Report ---
ED General - General Chief Complaint: Flank Pain Stated Complaint: FLANK PAIN Time Seen by Provider: 04/12/17 10:11 TRAVEL OUTSIDE OF THE [place] IN LAST 30 DAYS: No - HPI Patient complains to provider of: Flank pain Notes: Coming in for left flank pain. Patient states history of lymphoma is currently on immunosuppressive therapy and see her local oncologist Dr. Morales patient recently finished up antibiotics for MRSA infection in his urine patient was on doxycycline states finished antibiotics approximately 24-48 hours prior to this visit denies fevers chills. Patient states he is having some nausea vomiting. Patient does state compliance with his pain medication regimen. Patient prior to my evaluation did pull out his IV and was requesting to leave the ER. Upon my evaluation patient is now resting comfortably on the stretcher. - Related Data Allergies/Adverse Reactions: No Known Allergies Allergy (Verified 04/09/17 07:58) Past Medical History - Social History Smoking Status: Current Every Day Smoker Family History: Reviewed & Not Pertinent, Malignancy - Past Medical History Cardiac Medical History: Reports: Hx Hypertension Denies: Hx Coronary Artery Disease, Hx Heart Attack Pulmonary Medical History: Denies: Hx Asthma, Hx Bronchitis, Hx COPD Comment Only: Hx Pneumonia - NODULES ON LUNGS Neurological Medical History: Denies: Hx Cerebrovascular Accident, Hx Seizures Renal/ Medical History: Denies: Hx Peritoneal Dialysis Musculoskeltal Medical History: Denies Hx Arthritis Psychiatric Medical History: Reports: Hx Attention Deficit Hyperactivity Disorder, Hx Depression Past Surgical History: Reports: Hx Urinary Tract Surgery - bladder 01/16/16 --[facility] , prostate removed - Immunizations Hx Diphtheria, Pertussis, Tetanus Vaccination: Yes Review of Systems - Review of Systems Constitutional: No symptoms reported EENT: No symptoms reported Cardiovascular: No symptoms reported Respiratory: No symptoms reported Gastrointestinal: Other - Flank pain Genitourinary: No symptoms reported Male Genitourinary: No symptoms reported Musculoskeletal: No symptoms reported Skin: No symptoms reported Hematologic/Lymphatic: No symptoms reported Neurological/Psychological: No symptoms reported -: Yes All other systems reviewed and negative Physical Exam - Vital signs Vitals: Temp Pulse Resp BP Pulse Ox 98.7 F 75 16 131/67 H 97 04/12/17 08:55 04/12/17 08:55 04/12/17 08:55 04/12/17 08:55 04/12/17 08:55 Interpretation: Normal - General General appearance: Appears well, Alert - HEENT Head: Normocephalic, Atraumatic Eyes: Normal Pupils: PERRL - Respiratory Respiratory status: No respiratory distress Chest status: Nontender Breath sounds: Normal Chest palpation: Normal - Cardiovascular Rhythm: Regular Heart sounds: Normal auscultation Murmur: No - Abdominal Inspection: Normal Distension: No distension Bowel sounds: Normal Tenderness: Nontender Organomegaly: No organomegaly - Back Back: Normal, Nontender - Extremities General upper extremity: Normal inspection, Nontender, Normal color, Normal ROM , Normal temperature General lower extremity: Normal inspection, Nontender, Normal color, Normal ROM , Normal temperature, Normal weight bearing. No: Bruna's sign - Neurological Neuro grossly intact: Yes Cognition: Normal Orientation: AAOx4 [place] Coma Scale Eye Opening: Spontaneous [place] Coma Scale Verbal: Oriented [place] Coma Scale Motor: Obeys Commands [place] Coma Scale Total: 15 Speech: Normal Motor strength normal: LUE, RUE, LLE, RLE Sensory: Normal - Psychological Associated symptoms: Normal affect, Normal mood - Skin Skin Temperature: Warm Skin Moisture: Dry Skin Color: Normal Course - Re-evaluation Re-evalutation: 04/12/17 15:34 Patient evaluation laboratory studies and CT scan which was performed due the patient's recent history of UTI with remaining WBC seen in the urine to check for obstructing uropathy were discussed covering oncologist . CT findings are known that the patient does have progressive disease does not think and agrees my assessment patient does not have pneumonia or any infection at this time. Agrees with continue to monitor the urine. Urine will be sent for culture but no new antibiotics will be prescribed as this does look like the urine has cleared no bacteria seen. Patient was encouraged to follow-up with his oncologist patient will be discharged home - Vital Signs Vital signs: Temp Pulse Resp BP Pulse Ox 98.4 F 54 L 16 119/60 97 04/12/17 12:10 04/12/17 12:10 04/12/17 12:10 04/12/17 12:10 04/12/17 12:10 - Laboratory Result Diagrams: 04/12/17 09:01 04/12/17 09:01 Laboratory results interpreted by me: 04/12/17 04/12/17 04/12/17 09:01 09:01 09:01 WBC 14.9 H RBC 4.01 L Hgb 12.0 L Hct 36.1 L Eosinophils % 6.9 H Absolute Neutrophils 8.7 H Absolute Eosinophils 1.0 H Potassium 3.3 L Albumin 3.3 L Urine Blood SMALL H Ur Leukocyte Esterase TRACE H Discharge - Discharge Clinical Impression: Flank pain Lymphoma Qualifiers: Lymphoma type: unspecified type Lymphoma site: unspecified region Qualified Code(s): C85.90 - Non-Hodgkin lymphoma, unspecified, unspecified site Nausea & vomiting Qualifiers: Vomiting type: unspecified Vomiting Intractability: unspecified Qualified Code( s): R11.2 - Nausea with vomiting, unspecified Condition: Good Disposition: HOME, SELF-CARE Instructions: Vomiting ([facility]), Nausea or Vomiting, Nonspecific ([facility]), Flank Pain ([facility]) Additional Instructions: Your workup today in the ER does not show any new findings. There is improvement in the urine showing clearing of infection. Your CAT scan does not show any new findings. I discussed her case with Dr. Cuellar. He recommended that you follow-up next week in his office. Please continue your pain regimen that you have at home Prescriptions: Promethazine HCl [Phenergan 25 mg Supp.rect] 25 mg CA Q4HP PRN #12 supp.rect PRN Reason: Referrals: JAZMIN MORALES MD [Primary Care Provider] - Follow up in 3-5 days
[2017-04-12 12:19] VITALS: BP 119/60
== END 2017-04-12 12:18 | disposition home or self-care (01) ==
LOC: ER 08:40
DX: R10.9 Unspecified abdominal pain (principal); R11.2 Nausea with vomiting, unspecified; C85.90 Non-Hodgkin lymphoma, unspecified, unspecified site; I10 Essential (primary) hypertension; F17.200 Nicotine dependence, unspecified, uncomplicated; Z79.899 Other long term (current) drug therapy; Z86.14 Personal history of Methicillin resistant Staphylococcus aureus infection; Z87.440 Personal history of urinary (tract) infections
CPT/HCPCS: 99284; 96361; 96374; 96375; 36415; 83690; 85025; 80053; 81001; 80307; 76380; J1200; J1885; J2765; J7030

== ENCOUNTER → 2017-04-24 | Outpatient (CLI) | payer MEDICAID ==
--- NOTE | 2017-04-24 14:09 | RADIOLOGY REPORT (SQ) ---
EXAM DESCRIPTION: CHEST PA/LAT COMPLETED DATE/TIME: 04/24/2017 12:59 pm REASON FOR STUDY: SOB (R06.02) COMPARISON: 12/30/2016. EXAM PARAMETERS: NUMBER OF VIEWS: two views TECHNIQUE: Digital Frontal and Lateral radiographic views of the chest acquired. RADIATION DOSE: NA LIMITATIONS: none FINDINGS: LUNGS AND PLEURA: Small ill-defined bilateral lung nodules. No lobar infiltrate. No pleu ral effusion or pneumothorax. MEDIASTINUM AND HILAR STRUCTURES: No masses or contour abnormalities. HEART AND VASCULAR STRUCTURES: Heart normal size. No evidence for failure. BONES: No acute findings. HARDWARE: None in the chest. OTHER: No other significant finding. IMPRESSION: SMALL ILL-DEFINED LUNG NODULES, CONCERNING FOR METASTASES. SIMILAR FINDINGS ON RECENT C T STONE PROTOCOL. OTHERWISE NO ACUTE FINDINGS. TECHNICAL DOCUMENTATION: JOB ID: [id number] [employer] All Rights Reserved
== END ==
LOC: RAD 12:44
PROVIDERS: ATTEND Specialist
DX: R06.02 Shortness of breath (principal)
CPT/HCPCS: 71020

== ENCOUNTER 2017-04-27 05:31 | Inpatient (IN) | payer MEDICAID, MEDICARE ==
[2017-04-27] MEDS ORDERED: ACETAMINOPHEN 325 MG TABLET PO ONE (06:00)
[2017-04-27] MEDS ORDERED: HYDROMORPHONE HCL INJ/PF 2 MG/ML AMPULE IV ONE ×2 (06:00→07:42)
[2017-04-27] MEDS ORDERED: CEFTRIAXONE 1 GM/D5W RTU 50 ML IV ONE (06:00)
[2017-04-27 07:11] LABS: ABSOLUTE BASOPHILS # (AUTO) 0.1 10^3/uL (0.0-0.2); ABSOLUTE EOSINOPHILS # (AUTO) 1.5 10^3/uL (0.0-0.6); ABSOLUTE LYMPHOCYTES (AUTO) 2.7 10^3/uL (0.5-4.7); ABSOLUTE MONOCYTES (AUTO) 1.3 10^3/uL (0.1-1.4); ABSOLUTE NEUT (AUTO) 14.1 10^3/uL (1.7-8.2); BASOPHILS % (AUTO) 0.3 % (0-2); EOSINOPHILS % (AUTO) 7.5 % (0-6); HEMATOCRIT 42.2 % (37.9-51.0); HGB HCT DIFFERENCE -0.2; LYMPHOCYTES % (AUTO) 13.9 % (13-45); MEAN CORPUSCULAR HEMOGLOBIN 29.6 pg (27.0-33.4); MEAN CORPUSCULAR HGB CONC 33.2 g/dL (32.0-36.0); MEAN CORPUSCULAR VOLUME 89 fl (80-97); MONOCYTES % (AUTO) 6.6 % (3-13); RED BLOOD COUNT 4.74 10^6/uL (4.35-5.55); RED CELL DISTRIBUTION WIDTH 14.7 % (11.5-14.0); SEGMENTED NEUTROPHILS % (AUTO) 71.7 % (42-78); WHITE BLOOD COUNT 19.7 10^3/uL (4.0-10.5)
[2017-04-27 07:27] LABS: ALANINE AMINOTRANSFERASE 101 U/L (21-72); ALBUMIN 3.4 g/dL (3.5-5.0); ALKALINE PHOSPHATASE 138 U/L (38-126); ANION GAP 11 (5-19); ASPARTATE AMINO TRANSFERASE 80 U/L (17-59); BILIRUBIN,DIRECT 0.5 mg/dL (0.0-0.4); BILIRUBIN,TOTAL 1.9 mg/dL (0.2-1.3); BLOOD UREA NITROGEN 22 mg/dL (7-20); CALCIUM 9.3 mg/dL (8.4-10.2); CARBON DIOXIDE 27 mmol/L (22-30); CHLORIDE 99 mmol/L (98-107); CREATININE RESULT 0.99 mg/dL (0.52-1.25); GLUCOSE 87 mg/dL (75-110); POTASSIUM 3.5 mmol/L (3.6-5.0); SODIUM 136.5 mmol/L (137-145); TOTAL PROTEIN 7.1 g/dL (6.3-8.2)
[2017-04-27 07:46] LABS: APPEARANCE,URINE CLEAR; BILIRUBIN,URINE NEGATIVE (NEGATIVE); GLUCOSE, URINE NEGATIVE (NEGATIVE); KETONES,URINE NEGATIVE (NEGATIVE); LEUKOCYTE ESTERASE,URINE MODERATE (NEGATIVE); NITRITE,URINE NEGATIVE (NEGATIVE); PROTEIN,URINE NEGATIVE (NEGATIVE); URINE SPECIFIC GRAVITY 1.006; UROBILINOGEN,URINE NEGATIVE mg/dL (<2.0)
--- NOTE | 2017-04-27 08:24 | ER Document Report ---
ED General - General Chief Complaint: Flank Pain Stated Complaint: FLANK PAIN Time Seen by Provider: 04/27/17 06:27 Mode of Arrival: Ambulatory Information source: Patient Notes: 36-year-old male history of stage IV bladder cancer presents with complaints of left flank pain and fever with generalized body aches. Patient denies any specific vomiting admits to nausea. Patient was seen by his oncologist Dr. Morales a few days prior. Patient is on immunotherapy TRAVEL OUTSIDE OF THE [place] IN LAST 30 DAYS: No - HPI Onset: Last week Onset/Duration: Persistent Quality of pain: Achy Severity: Mild Pain Level: 1 Associated symptoms: Body/muscle aches, Fever Exacerbated by: Denies Relieved by: Denies Similar symptoms previously: Yes Recently seen / treated by doctor: Yes - Related Data Allergies/Adverse Reactions: No Known Allergies Allergy (Verified 04/09/17 07:58) Home Medications: Current Home Medications Esomeprazole Magnesium [Nexium] 40 mg PO DAILY 04/27/17 [History] Granisetron [Sancuso] 1 each TD DAILY 04/27/17 [History] Nystatin/Dexameth/Diphen [Magic Mouthwash ([facility] Formula) Susp] 5 ml PO QID [History] Ondansetron [Zofran Odt] 8 mg PO PRN PRN 04/27/17 [History] Potassium Chloride 20 meq PO DAILY 04/27/17 [History] Temazepam 15 mg PO DAILY 04/27/17 [History] Past Medical History - Social History Smoking Status: Never Smoker Cigarette use (# per day): No Chew tobacco use (# tins/day): No Smoking Education Provided: No Family History: Reviewed & Not Pertinent, Malignancy Patient has suicidal ideation: No Patient has homicidal ideation: No - Past Medical History Cardiac Medical History: Reports: Hx Hypertension Denies: Hx Coronary Artery Disease, Hx Heart Attack Pulmonary Medical History: Denies: Hx Asthma, Hx Bronchitis, Hx COPD Comment Only: Hx Pneumonia - NODULES ON LUNGS Neurological Medical History: Denies: Hx Cerebrovascular Accident, Hx Seizures Renal/ Medical History: Denies: Hx Peritoneal Dialysis Musculoskeltal Medical History: Denies Hx Arthritis Psychiatric Medical History: Reports: Hx Attention Deficit Hyperactivity Disorder, Hx Depression Past Surgical History: Reports: Hx Urinary Tract Surgery - bladder 01/16/16 --[facility] , prostate removed - Immunizations Hx Diphtheria, Pertussis, Tetanus Vaccination: Yes Review of Systems - Review of Systems Notes: REVIEW OF SYSTEMS: CONSTITUTIONAL : Admits to fever. EENT: Denies eye, ear, throat, or mouth pain or symptoms. Denies nasal or sinus congestion or discharge. Denies throat, tongue, or mouth swelling or difficulty swallowing. CARDIOVASCULAR: Denies chest pain. Denies palpitations or racing or irregular heart beat. Denies ankle edema. RESPIRATORY: Denies cough, cold, or chest congestion. Denies shortness of breath, difficulty breathing, or wheezing. GASTROINTESTINAL: Denies abdominal pain or distention. Denies nausea, vomiting , or diarrhea. Denies blood in vomitus, stools, or per rectum. Denies black, tarry stools. Denies constipation. GENITOURINARY: Denies difficulty urinating, painful urination, burning, frequency, blood in urine, or discharge. MUSCULOSKELETAL: Admits to flank pain SKIN: Denies rash, lesions or sores. HEMATOLOGIC : Denies easy bruising or bleeding. LYMPHATIC: Denies swollen, enlarged glands. NEUROLOGICAL: Denies confusion or altered mental status. Denies passing out or loss of consciousness. Denies dizziness or lightheadedness. Denies headache. Denies weakness or paralysis or loss of use of either side. Denies problems with gait or speech. Denies sensory loss, numbness, or tingling. Denies seizures. PSYCHIATRIC: Denies anxiety or stress. Denies depression, suicidal ideation, or homicidal ideation. ALL OTHER SYSTEMS REVIEWED AND NEGATIVE. Dictation was performed using [employer] voice recognition software PHYSICAL EXAMINATION: GENERAL: Well-appearing, well-nourished and in no acute distress. HEAD: Atraumatic, normocephalic. EYES: Pupils equal round and reactive to light, extraocular movements intact, sclera anicteric, conjunctiva are normal. ENT: Nares patent, oropharynx clear without exudates. Moist mucous membranes. NECK: Normal range of motion, supple without lymphadenopathy LUNGS: Breath sounds clear to auscultation bilaterally and equal. No wheezes rales or rhonchi. HEART: Tachycardic ABDOMEN: Soft, left cva tenderness Musculoskeletal: Normal range of motion, no pitting or edema. No cyanosis. NEUROLOGICAL: Cranial nerves grossly intact. Normal speech, normal gait. Normal sensory, motor exams PSYCH: Normal mood, normal affect. SKIN: Warm, Dry, normal turgor, no rashes or lesions noted. Physical Exam - Vital signs Vitals: Temp Pulse Resp BP Pulse Ox 100 F 110 H 24 H 146/96 H 94 04/27/17 05:43 04/27/17 05:43 04/27/17 05:43 04/27/17 05:43 04/27/17 05:43 Course - Re-evaluation Re-evalutation: 04/27/17 08:34 Given that patient self cath and has flank pain I do believe he has power at this time, Rocrauln was given sensation is septic he will be admitted to the hospitalist service 04/27/17 08:38 - Vital Signs Vital signs: Temp Pulse Resp BP Pulse Ox 99.1 F 89 21 H 148/95 H 97 04/27/17 07:31 04/27/17 08:00 04/27/17 08:00 04/27/17 08:00 04/27/17 08:00 - Laboratory Result Diagrams: 04/27/17 06:35 04/27/17 06:35 Laboratory results interpreted by me: 04/27/17 04/27/17 04/27/17 06:35 06:35 07:25 WBC 19.7 H RDW 14.7 H Eosinophils % 7.5 H Absolute Neutrophils 14.1 H Absolute Eosinophils 1.5 H Sodium 136.5 L Potassium 3.5 L BUN 22 H Total Bilirubin 1.9 H Direct Bilirubin 0.5 H AST 80 H ALT 101 H Alkaline Phosphatase 138 H Albumin 3.4 L Urine Blood SMALL H Ur Leukocyte Esterase MODERATE H - Diagnostic Test Radiology reviewed: Image reviewed, Reports reviewed - No acute abnormality Critical Care Note - Critical Care Note Total time excluding time spent on procedures (mins): 37 Comments: 37 minutes of critical care time spent in direct contact evaluating and reevaluating the patient, treating symptoms, reviewing labs and studies and speaking with family and consultants excluding any procedures Discharge - Discharge Clinical Impression: Pyelonephritis, Immunosuppressed status Sepsis Qualifiers: Sepsis type: sepsis due to unspecified organism Qualified Code(s): A41.9 - Sepsis, unspecified organism Admitting Provider: Hospitalist Unit Admitted: Telemetry Referrals: JAZMIN MORALES MD [Primary Care Provider] - Follow up as needed
[2017-04-27] MEDS: NORMAL SALINE 1000 ML 1,000 ML IV PRN ×2 (08:36→09:23)
[2017-04-27] MEDS ORDERED: ACETAMINOPHEN 325 MG TABLET PO PRN (08:36)
[2017-04-27] MEDS ORDERED: OXYCODONE-ACETAMINOPHEN 5-325 MG TABLET PO PRN (08:36)
[2017-04-27] MEDS ORDERED: NORMAL SALINE 1000 ML 1,000 ML IV PRN (08:36)
[2017-04-27] MEDS ORDERED: ZOLPIDEM TARTRATE 5 MG TABLET PO PRN (08:36)
[2017-04-27] MEDS ORDERED: FENTANYL 75 MCG/HR PATCH.TD72 TD ONE (08:39)
--- NOTE | 2017-04-27 08:51 | RADIOLOGY REPORT (SQ) ---
EXAM DESCRIPTION: CHEST SINGLE VIEW COMPLETED DATE/TIME: 04/27/2017 8:39 am REASON FOR STUDY: left sided chest pain COMPARISON: 04/24/2017 EXAM PARAMETERS: NUMBER OF VIEWS: One view. TECHNIQUE: Single frontal radiographic view of the chest acquired. RADIATION DOSE: NA LIMITATIONS: None. FINDINGS: LUNGS AND PLEURA: New prominent opacity at the left base. Vague nodular density is also i dentified as seen previously. MEDIASTINUM AND HILAR STRUCTURES: No masses. Contour normal. HEART AND VASCULAR STRUCTURES: Heart normal in size. Normal vasculature. BONES: No acute findings. HARDWARE: None in the chest. OTHER: No other significant finding. IMPRESSION: New prominent opacity at the left lung base more likely infectious/inflammatory. rapid progression of metastatic disease in the differential. TECHNICAL DOCUMENTATION: JOB ID: [id number]
[2017-04-27] MEDS ORDERED: CLONAZEPAM 1 MG TABLET PO PRN ×2 (09:37→14:04)
[2017-04-27] MEDS ORDERED: AMPHETAMINE PO SCH (10:00)
[2017-04-27] MEDS ORDERED: [UNRECOGNIZED DRUG - OTHER] PO SCH (10:00)
[2017-04-27] MEDS ORDERED: DEXAMETHASONE 4 MG TABLET PO SCH (10:00)
[2017-04-27] MEDS ORDERED: GRANISETRON TD SCH (10:00)
[2017-04-27] MEDS ORDERED: DEXTROAMPHETAMINE PO SCH (10:00)
[2017-04-27] MEDS ORDERED: FENTANYL 25 MCG/HR PATCH.TD72 TD PRN (11:30)
[2017-04-27] MEDS ORDERED: MEGESTROL ACETATE SUSP 400 MG/10 ML UDCUP PO PRN (11:30)
[2017-04-27] MEDS ORDERED: ENOXAPARIN SODIUM INJ 40 MG/0.4 ML DISP.SYRIN SUBCUT ONE (12:00)
[2017-04-27] MEDS ORDERED: LANSOPRAZOLE 30 MG TAB.RAP.DR PO ONE (12:00)
[2017-04-27] MEDS ORDERED: POTASSIUM CHLORIDE 10 MEQ TABLET.SA PO ONE ×2 (12:00)
[2017-04-27] MEDS ORDERED: PAROXETINE HCL 20 MG TABLET PO ONE (12:00)
--- NOTE | 2017-04-27 12:15 | PDOC H&P ---
History of Present Illness Admission Date/PCP: 04/27/17 08:28 JAZMIN MORALES MD Patient complains of: Fever, body aches and left flank pain History of Present Illness: Gian Mead is a 36-year-old male with the unfortunate history of stage IV bladder cancer. He presented to [facility]'s ED this morning via EMS with complaints of left flank pain and fever with generalized body aches worsening over the last 24 hours. He states temperature at home was 100.2. He took Tylenol for the fever. He is on fentanyl and oxycodone for th pain . He performs straight catheterizations at home and has a history of frequent urinary tract infections. Patient denies any specific vomiting. He does admit to some intermittent nausea. Patient was seen by his oncologist Dr. Morales a few days prior. Patient is on immunotherapy at the present time for treatment of his cancer. Past Medical History Cardiac Medical History: Reports: Hypertension Denies: Coronary Artery Disease, Myocardial Infarction Pulmonary Medical History: Denies: Asthma, Bronchitis, Chronic Obstructive Pulmonary Disease (COPD) Comment Only: Pneumonia - NODULES ON LUNGS EENT Medical History: Reports: None Neurological Medical History: Reports: None Denies: Seizures Endocrine Medical History: Reports: None Renal/ Medical History: Reports: None, Other - Stage 4 bladder cancer, he is status post radical cystectomy/prostatectomy at [facility] with a neobladder Malignancy Medical History: Reports: Other GI Medical History: Reports: Other - Hepatitis C Musculoskeltal Medical History: Reports: Other - Back pain Denies: Arthritis Skin Medical History: Reports: None Psychiatric Medical History: Reports: Attention Deficit Hyperactivity Disorder, Depression Traumatic Medical History: Reports: None Hematology: Reports: Anemia Infectious Medical History: Reports: Hepatitis C Past Surgical History Past Surgical History: Reports: Other - radical cystectomy/prostatectomy with tommy bladder Social History Information Source: Patient Lives with: Spouse/Significant other Smoking Status: Current Every Day Smoker Cigarettes Packs Per Day: 0.5 Number of Years Smokin Last Time Smoked: yesterday Frequency of Alcohol Use: Occasional Hx Recreational Drug Use: Yes Drugs: Marijuana Hx Prescription Drug Abuse: No - Advance Directive Resuscitation Status: Full Code Surrogate healthcare decision maker:: Linh Toribio, significant other Family History Family History: Hypertension, Malignancy Parental Family History Reviewed: Yes Children Family History Reviewed: NA Sibling(s) Family History Reviewed.: Yes Medication/Allergy Home Medications: Fentanyl [Fentanyl] 1 patch TOP Q72HP PRN 04/09/16 Clonazepam [Clonazepam] 1 mg PO Q8HP PRN 03/30/17 Oxycodone HCl [Oxycodone HCl] 1 tab PO Q4HP PRN 03/30/17 Paroxetine HCl [Paxil 20 mg Tablet] 20 mg PO DAILY 03/30/17 Dexamethasone 4 mg PO BID 04/09/17 Dextroamphetamine/Amphetamine [Adderall XR 20 mg Capsule] 1 cap.sr PO DAILY Megestrol Acetate 240 ml PO ASDIR PRN 04/09/17 Mirtazapine 30 mg PO ASDIR PRN 04/09/17 Prochlorperazine Maleate 10 mg PO ASDIR PRN 04/09/17 Esomeprazole Magnesium [Nexium] 40 mg PO DAILY 04/27/17 Granisetron [Sancuso] 1 each TD DAILY 04/27/17 Nystatin/Dexameth/Diphen [Magic Mouthwash (Omh Formula) Susp] 5 ml PO QID Ondansetron [Zofran Odt] 8 mg PO PRN PRN 04/27/17 Potassium Chloride 20 meq PO DAILY 04/27/17 Temazepam 15 mg PO DAILY 04/27/17 Allergies/Adverse Reactions: No Known Allergies Allergy (Verified 04/09/17 07:58) Review of Systems Constitutional: PRESENT: anorexia, chills, fever(s), weakness, weight loss Eyes: ABSENT: visual disturbances Ears: ABSENT: hearing changes Cardiovascular: ABSENT: chest pain, dyspnea on exertion, edema, orthropnea, palpitations Respiratory: PRESENT: cough Gastrointestinal: PRESENT: abdominal pain, constipation, nausea Genitourinary: PRESENT: other - straight catheterizes daily Musculoskeletal: PRESENT: back pain Integumentary: ABSENT: rash, wounds Neurological: ABSENT: abnormal gait, abnormal speech, confusion, dizziness, focal weakness, syncope Psychiatric: PRESENT: anxiety, depression Endocrine: ABSENT: cold intolerance, heat intolerance, polydipsia, polyuria Hematologic/Lymphatic: ABSENT: easy bleeding, easy bruising Physical Exam Vital Signs: Temp Pulse Resp BP Pulse Ox 98.0 F 86 25 H 153/98 H 98 04/27/17 09:00 04/27/17 11:00 04/27/17 11:00 04/27/17 11:00 04/27/17 11:00 General appearance: PRESENT: no acute distress, cooperative, thin, well- developed Head exam: PRESENT: atraumatic, normocephalic Eye exam: PRESENT: conjunctiva pink, EOMI, PERRLA. ABSENT: scleral icterus Ear exam: PRESENT: normal external ear exam Mouth exam: PRESENT: moist, tongue midline Neck exam: ABSENT: carotid bruit, JVD, lymphadenopathy, thyromegaly Respiratory exam: PRESENT: clear to auscultation dejuan. ABSENT: rales, rhonchi, wheezes Cardiovascular exam: PRESENT: RRR. ABSENT: diastolic murmur, rubs, systolic murmur Pulses: PRESENT: normal dorsalis pedis pul Vascular exam: PRESENT: normal capillary refill GI/Abdominal exam: PRESENT: normal bowel sounds - CVA tenderness on the left, soft, other Rectal exam: PRESENT: deferred Extremities exam: PRESENT: full ROM. ABSENT: calf tenderness, clubbing, pedal edema Musculoskeletal exam: PRESENT: ambulatory, full ROM, normal inspection Neurological exam: PRESENT: alert, awake, oriented to person, oriented to place , oriented to time, oriented to situation, CN II-XII grossly intact. ABSENT: motor sensory deficit Psychiatric exam: PRESENT: appropriate affect, normal mood. ABSENT: homicidal ideation, suicidal ideation Skin exam: PRESENT: dry, intact, warm. ABSENT: cyanosis, rash Results Impressions: Chest X-Ray 04/27/17 08:17 IMPRESSION: New prominent opacity at the left lung base more likely infectious/ inflammatory. rapid progression of metastatic disease in the differential. Assessment & Plan - Diagnosis (1) Pyelonephritis Is this a current diagnosis for this admission?: YesPlan: Patient (2) Sepsis Qualifiers: Sepsis type: sepsis due to unspecified organism Qualified Code(s): A41.9 - Sepsis, unspecified organism Is this a current diagnosis for this admission?: YesPlan: Patient presented with fever, tachycardia HR 110, tachypnea and leucocytosis of 19.7 Treated with IV fluid bolus, cultures of blood, and urine pending started on empiric broad spectrum IV antibiotics (3) Bladder cancer metastasized to intra-abdominal lymph nodes Is this a current diagnosis for this admission?: YesPlan: Will consult Dr Morales, patient's oncologist (4) Chronic pain due to neoplasm Is this a current diagnosis for this admission?: YesPlan: Continue patient's current pain medication with prn break through medication (5) Weight loss, non-intentional Is this a current diagnosis for this admission?: YesPlan: Patient states he has lost over 20lb over last 3 months. He is on Megace and this has improved his appetite and slowed weight loss. No dietary restrictions - Time Time Spent: 50 to 70 Minutes Critical Time spent with patient: 25-34 minutes Smoking Cessation Education: 3 to 10 minutes Medications reviewed and adjusted accordingly: Yes Anticipated discharge: Home
--- NOTE | 2017-04-27 12:21 | RADIOLOGY REPORT (SQ) ---
EXAM DESCRIPTION: CTA CHEST COMPLETED DATE/TIME: 04/27/2017 12:09 pm REASON FOR STUDY: chest pain COMPARISON: CT abdomen 04/12/2017 TECHNIQUE: CT scan of the chest performed using helical scanning technique with dynamic intravenous contrast injection. Images reviewed with lung, soft tissue and bone windows. Reconstructed coronal and sagittal MPR images reviewed. Additional 3 dimensional post-processing performed to develop Maximal Intensity Projection images (ND P). All images stored on PACS. All CT scanners at this facility use dose modulation, iterative reconstruction, and/or weight based d osing when appropriate to reduce radiation dose to as low as reasonably achievable (ALARA). [facility]: Dose Right [facility]: CareDose [facility]: Dose Right [facility]: Teradose 4D [facility]: Smart Telensius CONTRAST TYPE AND DOSE: contrast/concentration: Isovue 370.00 mg/ml; Total Contrast Delivered: 68.0 ml; Total Saline Delivered: 108.0 ml RENAL FUNCTION: GFR > 60. RADIATION DOSE: 34.16 . LIMITATIONS: None. FINDINGS: LUNGS AND PLEURA: Multiple parenchymal opacities and nodules throughout the lungs. Most l ikely metastatic disease. Differential includes superimposed infection and septic emboli. Lung base s when compared with previous are similar. AORTA AND GREAT VESSELS: No aneurysm or dissection. HEART: No pericardial effusion. PULMONARY ARTERIES: No emboli visualized in the main pulmonary arteries or the segmental branches. HILAR AND MEDIASTINAL STRUCTURES: Multiple hilar mediastinal nodes. HARDWARE: None in the chest. UPPER ABDOMEN: No significant findings. Limited exam. THYROID AND OTHER SOFT TISSUES: No masses. No adenopathy. BONES: No acute or significant finding. 3D MIPS: Confirm above findings. OTHER: No other significant finding. IMPRESSION: Diffuse parenchymal opacities with a nodular component most likely metastatic disease. Differential also includes superimposed infection and septic emboli. Lung bases are similar to the previous CT abdomen pelvis. Extensive mediastinal and hilar adenopathy likely metastatic. No pulmonary emboli. TECHNICAL DOCUMENTATION: JOB ID: [id number] Quality ID # [id number]: Final reports with documentation of one or more dose reduction techniques (e.g., Au tomated exposure control, adjustment of the mA and/or kV according to patient size, use of iterative reconstruction technique) 2010 [employer]- All Rights Reserved
[2017-04-27] MEDS: DOCUSATE SODIUM 100 MG CAPSULE PO SCH ×2 (12:28→17:42)
[2017-04-27] MEDS ORDERED: FENTANYL 100 MCG/HR PATCH.TD72 TD SCH (14:15)
[2017-04-27] MEDS: NYSTATIN/DEXAMETH/DIPHEN SUSP 120 ML PO SCH ×3 (14:45→22:01)
[2017-04-27] MEDS ORDERED: LOPERAMIDE HCL 2 MG CAPSULE PO PRN (15:19)
[2017-04-27] MEDS: OXYCODONE HCL IR 5 MG TABLET PO PRN ×2 (15:21→22:08)
[2017-04-27] MEDS ORDERED: FENTANYL 100 MCG/HR PATCH.TD72 TD ONE (15:30)
[2017-04-27] MEDS: HYDROMORPHONE HCL INJ/PF 2 MG/ML AMPULE IV PRN (16:21)
[2017-04-27] MEDS ORDERED: MEGESTROL ACETATE SUSP 400 MG/10 ML UDCUP PO ONE (17:00)
[2017-04-27] MEDS: DEXAMETHASONE 4 MG TABLET PO SCH (17:39)
[2017-04-27] MEDS: LACTOBACILLUS ACIDOPHILUS 250 MG TAB PO SCH (17:39)
[2017-04-27] MEDS: NYSTATIN 500000 UNIT/5 ML UDCUP PO SCH (17:40)
[2017-04-27] MEDS ORDERED: DIPHENHYDRAMINE PO SCH (18:00)
[2017-04-27] MEDS ORDERED: LIDOCAINE PO SCH (18:00)
[2017-04-27] MEDS ORDERED: (PENDING PHARMACY ID) (Nystatin 10 ML) PO SCH (18:00)
[2017-04-27] MEDS ORDERED: ANTACID PO SCH (18:00)
[2017-04-27] MEDS ORDERED: MIRTAZAPINE 15 MG TABLET PO SCH (22:00)
[2017-04-27] MEDS ORDERED: CLONAZEPAM 1 MG TABLET PO SCH (22:00)
[2017-04-27] MEDS ORDERED: TEMAZEPAM 15 MG CAPSULE PO SCH (22:00)
[2017-04-28] MEDS: HYDROMORPHONE HCL INJ/PF 2 MG/ML AMPULE IV PRN (01:59)
[2017-04-28] MEDS: ONDANSETRON HCL INJ/PF 4 MG/2 ML SDV IV PRN ×2 (02:04→06:17)
[2017-04-28 04:47] LABS: HEMATOCRIT 38.2 % (37.9-51.0); HEMOGLOBIN 12.1 g/dL (13.5-17.0); HGB HCT DIFFERENCE -1.9; MEAN CORPUSCULAR HEMOGLOBIN 29.2 pg (27.0-33.4); MEAN CORPUSCULAR HGB CONC 31.8 g/dL (32.0-36.0); MEAN CORPUSCULAR VOLUME 92 fl (80-97); RED BLOOD COUNT 4.15 10^6/uL (4.35-5.55); RED CELL DISTRIBUTION WIDTH 14.1 % (11.5-14.0); WHITE BLOOD COUNT 20.2 10^3/uL (4.0-10.5)
[2017-04-28 05:06] LABS: BASOPHILS % (MANUAL) 0 % (0-2); EOSINOPHILS % (MANUAL) 0 % (0-6); LYMPHOCYTES % (MANUAL) 5 % (13-45); TOTAL CELLS COUNTED 100
[2017-04-28 05:09] LABS: ANISOCYTOSIS SLIGHT; OVALOCYTES SLIGHT; POIKILOCYTOSIS SLIGHT; TEAR DROP CELLS SLIGHT
[2017-04-28 05:11] LABS: ALANINE AMINOTRANSFERASE 111 U/L (21-72); ALBUMIN 3.2 g/dL (3.5-5.0); ALKALINE PHOSPHATASE 122 U/L (38-126); ANION GAP 9 (5-19); ASPARTATE AMINO TRANSFERASE 71 U/L (17-59); BILIRUBIN,DIRECT 0.3 mg/dL (0.0-0.4); BILIRUBIN,TOTAL 1.1 mg/dL (0.2-1.3); BLOOD UREA NITROGEN 19 mg/dL (7-20); CARBON DIOXIDE 28 mmol/L (22-30); CHLORIDE 102 mmol/L (98-107); CREATININE RESULT 0.93 mg/dL (0.52-1.25); GLUCOSE 145 mg/dL (75-110); LIPASE 56.8 U/L (23-300); MAGNESIUM 1.8 mg/dL (1.6-2.3); POTASSIUM 4.3 mmol/L (3.6-5.0); SODIUM 139.3 mmol/L (137-145); TOTAL PROTEIN 6.7 g/dL (6.3-8.2)
[2017-04-28] MEDS ORDERED: MEGESTROL ACETATE SUSP 400 MG/10 ML UDCUP PO SCH (08:00)
[2017-04-28] MEDS ORDERED: OXYCODONE HCL IR 5 MG TABLET PO PRN (08:24)
--- NOTE | 2017-04-28 08:29 | PDOC CONSULTATION ---
Consultation Consult Date: 04/28/17 Attending physician:: DONNA CHAIREZ Consult reason:: Fevers, chills History of Present Illness Admission Date/PCP: 04/27/17 08:28 JAZMIN MARES MD Patient complains of: Fever, chills, stage IV bladder ca History of Present Illness: 36-year-old male well-known to our oncology clinic with stage IV bladder cancer , recent progression, recently started on immunotherapy with Opdivo only received 3 doses of that, comes in with fevers chills, was found on urine culture to have MRSA, felt to have sepsis because he was hypotensive and tachycardic, with broad-spectrum antibiotics now being tapered, also on pain medications with oxycodone and fentanyl, having some bouts of confusion overnight because of getting Dilaudid, over the last 24 hours the fevers have defervesced, today we had a long discussion about prognosis as well as an extensive care, we spent greater than 70 minutes in discussion. We also discussed CODE STATUS at length, he wants to be full code. Past Medical History Cardiac Medical History: Reports: Hypertension Denies: Coronary Artery Disease, Myocardial Infarction Pulmonary Medical History: Denies: Asthma, Bronchitis, Chronic Obstructive Pulmonary Disease (COPD) Comment Only: Pneumonia - NODULES ON LUNGS EENT Medical History: Reports: None Neurological Medical History: Reports: None Denies: Seizures Endocrine Medical History: Reports: None Renal/ Medical History: Reports: None, Other - Stage 4 bladder cancer, he is status post radical cystectomy[facility]ctomy at [facility] with a neobladder Malignancy Medical History: Reports: Other GI Medical History: Reports: Other - Hepatitis C Musculoskeltal Medical History: Reports: Other - Back pain Denies: Arthritis Skin Medical History: Reports: None Psychiatric Medical History: Reports: Attention Deficit Hyperactivity Disorder, Depression Traumatic Medical History: Reports: None Hematology: Reports: Anemia Infectious Medical History: Reports: Hepatitis C Past Surgical History Past Surgical History: Reports: Other - radical cystectomy/prostatectomy with tommy bladder Social History Lives with: Spouse/Significant other Smoking Status: Current Some Day Smoker Cigarettes Packs Per Day: 0.5 Number of Years Smokin Last Time Smoked: yesterday Frequency of Alcohol Use: Rare Hx Recreational Drug Use: No Drugs: Marijuana Hx Prescription Drug Abuse: No - Advance Directive Resuscitation Status: Full Code Family History Family History: Hypertension, Malignancy Parental Family History Reviewed: Yes Children Family History Reviewed: Yes Sibling(s) Family History Reviewed.: Yes Medication/Allergy Home Medications: Clonazepam [Clonazepam] 1 mg PO DAILY 03/30/17 Oxycodone HCl [Oxycodone HCl] 15 mg PO Q4HP PRN 03/30/17 Paroxetine HCl [Paxil 20 mg Tablet] 20 mg PO DAILY 03/30/17 Dexamethasone 4 mg PO Q12 04/09/17 Dextroamphetamine/Amphetamine [Adderall XR 20 mg Capsule] 40 mg PO QAMP PRN Megestrol Acetate 20 ml PO QAM 04/09/17 Mirtazapine 45 mg PO QHS 04/09/17 Prochlorperazine Maleate 10 mg PO Q6HP PRN 04/09/17 Antacid/Lidocaine/Diphenhydramine 15 ml PO TID 04/27/17 Clonazepam [Klonopin 1 mg Tablet] 1 mg PO Q8HP PRN 04/27/17 Clonazepam [Klonopin 1 mg Tablet] 2 mg PO QHS 04/27/17 Esomeprazole Magnesium [Nexium] 40 mg PO DAILY 04/27/17 Fentanyl [Duragesic 100 Mcg/Hr Transdermal Patch] 1 patch TD Q3D 04/27/17 Granisetron [Sancuso] 3.1 mg TOP Q7D 04/27/17 Nystatin [Mycostatin 506460 Unit/mL Susp 60 mL] 10 ml PO BID 04/27/17 Ondansetron [Zofran Odt] 8 mg PO Q8HP PRN 04/27/17 Potassium Chloride 20 meq PO DAILY 04/27/17 Temazepam 15 mg PO QHS 04/27/17 Allergies/Adverse Reactions: No Known Allergies Allergy (Verified 04/09/17 07:58) Review of Systems Constitutional: ABSENT: chills, fever(s), headache(s), weight gain, weight loss Eyes: ABSENT: visual disturbances Ears: ABSENT: hearing changes Cardiovascular: ABSENT: chest pain, dyspnea on exertion, edema, orthropnea, palpitations Respiratory: ABSENT: cough, hemoptysis Gastrointestinal: ABSENT: abdominal pain, constipation, diarrhea, hematemesis, hematochezia, nausea, vomiting Genitourinary: ABSENT: dysuria, hematuria Musculoskeletal: ABSENT: joint swelling Integumentary: ABSENT: rash, wounds Neurological: ABSENT: abnormal gait, abnormal speech, confusion, dizziness, focal weakness, syncope Psychiatric: ABSENT: anxiety, depression, homidical ideation, suicidal ideation Endocrine: ABSENT: cold intolerance, heat intolerance, polydipsia, polyuria Hematologic/Lymphatic: ABSENT: easy bleeding, easy bruising Physical Exam Vital Signs: Temp Pulse Resp BP Pulse Ox 99.0 F 93 20 159/92 H 96 04/28/17 08:04 04/28/17 08:04 04/28/17 08:04 04/28/17 08:04 04/28/17 08:04 Intake & Output 04/27/17 04/28/17 04/29/17 06:59 06:59 06:59 Intake Total 3021 Balance 3021 Weight 76.1 kg General appearance: PRESENT: no acute distress, well-developed, well-nourished Head exam: PRESENT: atraumatic, normocephalic Eye exam: PRESENT: conjunctiva pink, EOMI, PERRLA. ABSENT: scleral icterus Ear exam: PRESENT: normal external ear exam Mouth exam: PRESENT: moist, tongue midline Neck exam: ABSENT: carotid bruit, JVD, lymphadenopathy, thyromegaly Respiratory exam: PRESENT: clear to auscultation dejuan. ABSENT: rales, rhonchi, wheezes Cardiovascular exam: PRESENT: RRR. ABSENT: diastolic murmur, rubs, systolic murmur Pulses: PRESENT: normal dorsalis pedis pul Vascular exam: PRESENT: normal capillary refill GI/Abdominal exam: PRESENT: normal bowel sounds, soft. ABSENT: distended, guarding, mass, organolmegaly, rebound, tenderness Rectal exam: PRESENT: deferred Extremities exam: PRESENT: full ROM. ABSENT: calf tenderness, clubbing, pedal edema Neurological exam: PRESENT: alert, awake, oriented to person, oriented to place , oriented to time, oriented to situation, CN II-XII grossly intact. ABSENT: motor sensory deficit Psychiatric exam: PRESENT: appropriate affect, normal mood. ABSENT: homicidal ideation, suicidal ideation Skin exam: PRESENT: dry, intact, warm. ABSENT: cyanosis, rash Results Laboratory Results: 04/28/17 04:30 04/28/17 04:30 04/28/17 04/28/17 04:30 04:30 WBC 20.2 H RBC 4.15 L Hgb 12.1 L Hct 38.2 MCV 92 MCH 29.2 MCHC 31.8 L RDW 14.1 H Plt Count 283 Seg Neutrophils % Not Reportable Lymphocytes % Not Reportable Monocytes % Not Reportable Eosinophils % Not Reportable Basophils % Not Reportable Absolute Neutrophils Not Reportable Absolute Lymphocytes Not Reportable Absolute Monocytes Not Reportable Absolute Eosinophils Not Reportable Absolute Basophils Not Reportable Sodium 139.3 Potassium 4.3 Chloride 102 Carbon Dioxide 28 Anion Gap 9 BUN 19 Creatinine 0.93 Est GFR ( Amer) > 60 Est GFR (Non-Af Amer) > 60 Glucose 145 H Calcium 9.0 Magnesium 1.8 Total Bilirubin 1.1 AST 71 H ALT 111 H Alkaline Phosphatase 122 Total Protein 6.7 Albumin 3.2 L Lipase 56.8 Impressions: Chest X-Ray 04/27/17 08:17 IMPRESSION: New prominent opacity at the left lung base more likely infectious/ inflammatory. rapid progression of metastatic disease in the differential. Chest/Abdomen CTA 04/27/17 11:34 IMPRESSION: Diffuse parenchymal opacities with a nodular component most likely metastatic disease. Differential also includes superimposed infection and septic emboli. Lung bases are similar to the previous CT abdomen pelvis. Extensive mediastinal and hilar adenopathy likely metastatic. No pulmonary emboli. Assessment & Plan - Diagnosis (1) Sepsis Qualifiers: Sepsis type: methicillin resistant Staphylococcus aureus Qualified Code(s): A41.02 - Sepsis due to Methicillin resistant Staphylococcus aureus Is this a current diagnosis for this admission?: YesPlan: He does have MRSA sepsis, continue present with antibiotics, probable discharge later today on oral antibiotics, this will be up to hospitalist team. (2) Bladder cancer metastasized to intra-abdominal lymph nodes Is this a current diagnosis for this admission?: YesPlan: Stage IV bladder cancer, had long discussion with patient about prognosis, will discuss his case with his father as well, he will need to continue on immunotherapy for at least 12 weeks prior to restaging. We will continue to be aggressive with his care. - Time Time Spent: Greater than 70 Minutes Critical Time spent with patient: 35 or more minutes Anticipated discharge: Home Within: within 24 hours
[2017-04-28] MEDS: LACTOBACILLUS ACIDOPHILUS 250 MG TAB PO SCH (09:20)
[2017-04-28] MEDS: NYSTATIN 500000 UNIT/5 ML UDCUP PO SCH (09:20)
[2017-04-28] MEDS: DEXAMETHASONE 4 MG TABLET PO SCH (09:28)
[2017-04-28] MEDS: DOCUSATE SODIUM 100 MG CAPSULE PO SCH (09:29)
[2017-04-28] MEDS: NYSTATIN/DEXAMETH/DIPHEN SUSP 120 ML PO SCH (09:29)
[2017-04-28] MEDS ORDERED: PAROXETINE HCL 20 MG TABLET PO SCH (10:00)
[2017-04-28] MEDS ORDERED: POTASSIUM CHLORIDE 10 MEQ TABLET.SA PO SCH (10:00)
[2017-04-28] MEDS ORDERED: LANSOPRAZOLE 30 MG TAB.RAP.DR PO SCH (10:00)
[2017-04-28] MEDS ORDERED: SULFAMETHOXAZOLE/TRIMETHOPRIM 800-160 MG TABLET PO SCH (10:00)
[2017-04-28] MEDS ORDERED: ENOXAPARIN SODIUM INJ 40 MG/0.4 ML DISP.SYRIN SUBCUT SCH (10:00)
[2017-04-28] MEDS ORDERED: TEMAZEPAM 15 MG CAPSULE PO SCH (10:00)
[2017-04-28 11:57] VITALS: BP 136/82
--- NOTE | 2017-04-28 16:10 | PDOC DISCHARGE SUMMARY ---
General - Admit/Disc Date/PCP Admission Date/Primary Care Provider: 04/27/17 08:28 JAZMIN MORALES MD Discharge Date: 04/28/17 - Discharge Diagnosis (1) Pyelonephritis Is this a current diagnosis for this admission?: YesSummary: Will complete treatment with 10 day course of Bactrim . Last 2 urine cultures grew MRSA (2) Sepsis Is this a current diagnosis for this admission?: YesSummary: Resolved with fluids and antibiotics (3) Bladder cancer metastasized to intra-abdominal lymph nodes Is this a current diagnosis for this admission?: YesSummary: Treatment per oncologist. He has follow up tomorrow with Dr Lusi (4) Chronic pain due to neoplasm Is this a current diagnosis for this admission?: YesSummary: Continue present analgesic plan with oncology (5) Weight loss, non-intentional Is this a current diagnosis for this admission?: Yes - Additional Information Resuscitation Status: Full Code Discharge Activity: Activity As Tolerated, Balance Activity w/Rest Home Medications: Clonazepam 1 mg PO DAILY 03/30/17 Paroxetine HCl [Paxil 20 mg Tablet] 20 mg PO DAILY 03/30/17 Dexamethasone 4 mg PO Q12 04/09/17 Dextroamphetamine/Amphetamine [Adderall XR 20 mg Capsule] 40 mg PO QAMP PRN Megestrol Acetate 20 ml PO QAM 04/09/17 Mirtazapine 45 mg PO QHS 04/09/17 Prochlorperazine Maleate 10 mg PO Q6HP PRN 04/09/17 Antacid/Lidocaine/Diphenhydramine 15 ml PO TID 04/27/17 Clonazepam [Klonopin 1 mg Tablet] 1 mg PO Q8HP PRN 04/27/17 Clonazepam [Klonopin 1 mg Tablet] 2 mg PO QHS 04/27/17 Esomeprazole Magnesium [Nexium] 40 mg PO DAILY 04/27/17 Fentanyl [Duragesic 100 Mcg/Hr Transdermal Patch] 1 patch TD Q3D 04/27/17 Granisetron [Sancuso] 3.1 mg TOP Q7D 04/27/17 Nystatin [Mycostatin 529242 Unit/1 ml Susp 60 ml Btl] 10 ml PO BID 04/27/17 Ondansetron [Zofran Odt] 8 mg PO Q8HP PRN 04/27/17 Potassium Chloride 20 meq PO DAILY 04/27/17 Temazepam 15 mg PO QHS 04/27/17 Acetaminophen [Tylenol 325 mg Tablet] 650 mg PO Q4HP PRN tablet 04/28/17 Benzonatate [Tessalon Perle 100 mg Capsule] 100 mg PO Q8HP PRN #40 cap 04/28/17 Docusate Sodium [Colace 100 mg Capsule] 100 mg PO BID capsule 04/28/17 Fentanyl [Duragesic 100 Mcg/Hr Transdermal Patch] 1 each TD Q3D patch.td72 Megestrol Acetate [Megace Angela 400 mg/10 ml Udcup] 800 mg PO QAM udc 04/28/17 Oxycodone HCl 30 mg PO Q4H PRN #40 tablet 04/28/17 Sulfamethoxazole/Trimethoprim [Septra-Ds 800-160 mg Tablet] 1 tab PO BID #20 tablet 04/28/17 History of Present Illness Patient complains of: Fevers and chills History of Present Illness: Gian Mead is a 36-year-old male with the unfortunate history of stage IV bladder cancer. He presented [facility] this morning via EMS with complaints of left flank pain and fever with generalized body aches worsening over the last 24 hours. He states temperature at home was 100.2. He took Tylenol for the fever. He is on fentanyl and oxycodone for th pain . He performs straight catheterizations at home and has a history of frequent urinary tract infections. Patient denies any specific vomiting. He does admit to some intermittent nausea. Patient was seen by his oncologist Dr. Morales a few days prior. Patient is on immunotherapy at the present time for treatment of his cancer. Hospital Course Hospital Course: Patient was admitted to the hospitalist service on telemetry. He was given IV hydration and antibiotic therapy after cultures were obtained. He had undergone CT of the chest and abdomen in the ED. CT showed multiple new parechymal densities since last scan was obtained. Oncology was consulted. Dr Luis saw the patient in consult and discussed prognosis and treatment options with him and his significant other. Patient felt overall improved from admission. He will be discharged home with a 10 day course of Bactrim. He will follow up with Dr Luis tomorrow Physical Exam Vital Signs: Temp Pulse Resp BP Pulse Ox 99.0 F 93 20 136/82 H 99 04/28/17 11:55 04/28/17 11:55 04/28/17 11:55 04/28/17 11:55 04/28/17 11:55 Intake & Output 04/27/17 04/28/17 04/29/17 06:59 06:59 06:59 Intake Total 3021 Balance 3021 Weight 76.1 kg General appearance: PRESENT: no acute distress, thin, well-developed, well- nourished Head exam: PRESENT: atraumatic, normocephalic Eye exam: PRESENT: conjunctiva pink, EOMI, PERRLA. ABSENT: scleral icterus Neck exam: ABSENT: carotid bruit, JVD, lymphadenopathy, thyromegaly Respiratory exam: PRESENT: clear to auscultation dejuan, symmetrical, unlabored. ABSENT: rales, rhonchi, wheezes Cardiovascular exam: PRESENT: RRR. ABSENT: diastolic murmur, rubs, systolic murmur Pulses: PRESENT: normal dorsalis pedis pul Vascular exam: PRESENT: normal capillary refill GI/Abdominal exam: PRESENT: normal bowel sounds, soft. ABSENT: distended, guarding, mass, organolmegaly, rebound, tenderness Rectal exam: PRESENT: deferred Extremities exam: PRESENT: full ROM. ABSENT: calf tenderness, clubbing, pedal edema Musculoskeletal exam: PRESENT: ambulatory, full ROM Neurological exam: PRESENT: alert, awake, oriented to person, oriented to place , oriented to time, oriented to situation, CN II-XII grossly intact. ABSENT: motor sensory deficit Psychiatric exam: PRESENT: appropriate affect, normal mood. ABSENT: homicidal ideation, suicidal ideation Skin exam: PRESENT: dry, intact, warm. ABSENT: cyanosis, rash Results Laboratory Results: 04/28/17 04:30 04/28/17 04:30 04/28/17 04/28/17 04:30 04:30 WBC 20.2 H RBC 4.15 L Hgb 12.1 L Hct 38.2 MCV 92 MCH 29.2 MCHC 31.8 L RDW 14.1 H Plt Count 283 Seg Neutrophils % Not Reportable Lymphocytes % Not Reportable Monocytes % Not Reportable Eosinophils % Not Reportable Basophils % Not Reportable Absolute Neutrophils Not Reportable Absolute Lymphocytes Not Reportable Absolute Monocytes Not Reportable Absolute Eosinophils Not Reportable Absolute Basophils Not Reportable Sodium 139.3 Potassium 4.3 Chloride 102 Carbon Dioxide 28 Anion Gap 9 BUN 19 Creatinine 0.93 Est GFR ( Amer) > 60 Est GFR (Non-Af Amer) > 60 Glucose 145 H Calcium 9.0 Magnesium 1.8 Total Bilirubin 1.1 AST 71 H ALT 111 H Alkaline Phosphatase 122 Total Protein 6.7 Albumin 3.2 L Lipase 56.8 Impressions: Chest X-Ray 04/27/17 08:17 IMPRESSION: New prominent opacity at the left lung base more likely infectious/ inflammatory. rapid progression of metastatic disease in the differential. Chest/Abdomen CTA 04/27/17 11:34 IMPRESSION: Diffuse parenchymal opacities with a nodular component most likely metastatic disease. Differential also includes superimposed infection and septic emboli. Lung bases are similar to the previous CT abdomen pelvis. Extensive mediastinal and hilar adenopathy likely metastatic. No pulmonary emboli. Qualifiers PATEINT BEING DISCHARGED WITH ANY OF THE FOLLOWING DIAGNOSIS?: No Plan Discharge Plan: Home with significant other. Follow up with oncology tomorrow
[2017-04-30] MEDS ORDERED: FENTANYL 100 MCG/HR PATCH.TD72 TD SCH (10:00)
== END 2017-04-28 12:27 | disposition home or self-care (01) | DRG 872 ==
LOC: ER 05:31 → EH 08:28 → UNDOADMIN 08:43 → 5 12:11
DX: A41.02 Sepsis due to Methicillin resistant Staphylococcus aureus (principal); N12 Tubulo-interstitial nephritis, not specified as acute or chronic; C77.2 Secondary and unspecified malignant neoplasm of intra-abdominal lymph nodes; C67.9 Malignant neoplasm of bladder, unspecified; G89.3 Neoplasm related pain (acute) (chronic); R63.4 Abnormal weight loss; I10 Essential (primary) hypertension; F90.9 Attention-deficit hyperactivity disorder, unspecified type; B19.20 Unspecified viral hepatitis C without hepatic coma; F32.9 Major depressive disorder, single episode, unspecified; F17.210 Nicotine dependence, cigarettes, uncomplicated; D64.9 Anemia, unspecified; F41.9 Anxiety disorder, unspecified; Z68.23 Body mass index [BMI] 23.0-23.9, adult; Z79.899 Other long term (current) drug therapy; Z90.79 Acquired absence of other genital organ(s); Z80.9 Family history of malignant neoplasm, unspecified; Z82.49 Family history of ischemic heart disease and other diseases of the circulatory system
CPT/HCPCS: 36415; 71010; 71275; 80053; 81001; 83605; 83690; 83735; 85025; 87040; 87086; 96365; 96375; 96376; 99291; A9270-GY; J0696; J1170; J1650; J2405; J3490; J7030

== ENCOUNTER 2017-06-02 05:48 | Emergency (ER) | payer MEDICAID ==
[2017-06-02] MEDS ORDERED: MORPHINE SULFATE 10 MG/ML INJ IV ONE (06:20)
[2017-06-02] MEDS ORDERED: NORMAL SALINE 1000 ML 1,000 ML IV ONE (06:20)
--- NOTE | 2017-06-02 06:24 | ER Document Report ---
ED GI/ - General Mode of Arrival: Ambulatory Information source: Patient TRAVEL OUTSIDE OF THE [place] IN LAST 30 DAYS: No - HPI Patient complains to provider of: Abdominal pain Associated symptoms: Other - See above <RHEA NAGEL - Last Filed: 06/02/17 06:50> <GERMAN KOO - Last Filed: 06/02/17 10:18> - General Chief Complaint: Abdominal Pain Stated Complaint: ABDOMINAL PAIN Time Seen by Provider: 06/02/17 06:17 Notes: Patient is a 36 year old male, with a past medical history including stage IV bladder cancer, who presents to the emergency department complaining of increasing abdominal pain onset 2 days ago. Patient reports the pain cramps and is all over his abdomen, states it is exacerbated by any tension or movement. Patient has not had any recent good bowel movements and has had problems with constipation in the past due to being on multiple pain medications. Patient denies fevers and vomiting. Patient was taken off of his immunotherapy 2 weeks ago and will not be starting chemotherapy or radiation. Patient received chemotherapy during his first diagnosis of cancer in 2014. PCP: Dr. Luis (RHEA NAGEL) - Related Data Allergies/Adverse Reactions: No Known Allergies Allergy (Verified 06/02/17 05:52) Home Medications: Current Home Medications Metoprolol Tartrate 100 mg PO BID 06/02/17 [History] Oxycodone HCl 60 mg PO Q4H PRN 06/02/17 [History] Past Medical History - General Information source: Patient - Social History Smoking Status: Unknown if Ever Smoked Family History: Reviewed & Not Pertinent, Hypertension, Malignancy - Past Medical History Cardiac Medical History: Reports: Hx Hypertension Pulmonary Medical History: Comment Only: Hx Pneumonia - NODULES ON LUNGS Psychiatric Medical History: Reports: Hx Attention Deficit Hyperactivity Disorder, Hx Depression Past Surgical History: Reports: Hx Urinary Tract Surgery - bladder 01/16/16 --[facility] , prostate removed, Other - radical cystectomy/prostatectomy with tommy bladder - Immunizations Hx Diphtheria, Pertussis, Tetanus Vaccination: Yes <RHEA NAGEL - Last Filed: 06/02/17 06:50> Review of Systems - Review of Systems Constitutional: denies: Fever EENT: No symptoms reported Cardiovascular: No symptoms reported Respiratory: No symptoms reported Gastrointestinal: See HPI, Abdominal pain. denies: Vomiting Genitourinary: No symptoms reported Male Genitourinary: No symptoms reported Musculoskeletal: No symptoms reported Skin: No symptoms reported Hematologic/Lymphatic: No symptoms reported Neurological/Psychological: No symptoms reported -: Yes All other systems reviewed and negative <NAGELRHEA - Last Filed: 06/02/17 06:50> Physical Exam - Vital signs Interpretation: Normal - General General appearance: Appears well, Alert - HEENT Head: Normocephalic, Atraumatic - Respiratory Respiratory status: No respiratory distress Chest status: Nontender Breath sounds: Normal Chest palpation: Normal - Cardiovascular Rhythm: Regular Heart sounds: Normal auscultation Murmur: No - Abdominal Inspection: Normal Distension: No distension Bowel sounds: Normal Tenderness: Tender - Diffusely tender to plpation Organomegaly: No organomegaly - Extremities General upper extremity: Normal inspection General lower extremity: Normal inspection - Neurological Neuro grossly intact: Yes Cognition: Normal Orientation: AAOx4 [place] Coma Scale Eye Opening: Spontaneous [place] Coma Scale Verbal: Oriented [place] Coma Scale Motor: Obeys Commands [place] Coma Scale Total: 15 Speech: Normal - Psychological Associated symptoms: Normal affect, Normal mood - Skin Skin Temperature: Warm Skin Moisture: Dry Skin Color: Normal <RHEA NAGEL - Last Filed: 06/02/17 06:50> Course - Laboratory Result Diagrams: 06/02/17 06:35 06/02/17 06:35 <NAGELRHEA - Last Filed: 06/02/17 06:50> - Laboratory Result Diagrams: 06/02/17 06:35 06/02/17 06:35 - Diagnostic Test Radiology reviewed: Image reviewed, Reports reviewed - KUB is unremarkable. CT scan of the chest shows progressive worsening of the metastatic disease compared to a month ago. CT scan of abdomen and pelvis does not show any acute process, shows the stable left hydronephrosis hydroureter. <GERMAN KOO - Last Filed: 06/02/17 10:18> - Re-evaluation Re-evalutation: 06/02/17 08:17 The patient had a IV contrast CT scan of the chest. I had ordered chest, abdomen and pelvis, but apparently the abdomen and pelvis order was kicked out by [employer] and I was unaware of this. The patient will be returned to scan the abdomen and pelvis, however an additional contrast load cannot be given. 06/02/17 10:[address] scan does not show an explanation for his abdominal pain. There is not any significant amount of stool noted on scans or x-rays. He reports that hypokalemia has been a problem in the past. He is encouraged to eat bananas today and tomorrow. Is also encouraged to take MiraLAX every day, as they tried milk of magnesia last night thinking the pain might be due to constipation. 2 previous urines were cultured growing MRSA, once in February once in March of this year. He will be put on Septra DS until the culture comes back from today's urine. The patient's case was discussed with Dr. Luis and he concurs with the plan. (GERMAN KOO) - Vital Signs Vital signs: Temp Pulse Resp BP Pulse Ox 98.5 F 81 18 170/113 H 94 06/02/17 09:10 06/02/17 09:10 06/02/17 09:10 06/02/17 09:10 06/02/17 09:10 - Laboratory Laboratory results interpreted by me: 06/02/17 06/02/17 06/02/17 06:35 06:35 07:45 WBC 16.2 H Hgb 12.8 L Hct 37.5 L RDW 17.4 H Eosinophils % 10.5 H Absolute Neutrophils 11.2 H Absolute Eosinophils 1.7 H Sodium 133.6 L Potassium 3.1 L Chloride 95 L Glucose 144 H Alkaline Phosphatase 127 H Total Protein 6.2 L Albumin 3.2 L Urine Protein 30 H Urine Blood SMALL H Ur Leukocyte Esterase LARGE H Discharge <RHEA NAGEL - Last Filed: 06/02/17 06:50> <GERMAN KOO - Last Filed: 06/02/17 10:18> - Discharge Clinical Impression: Stage IV bladder cancer, Hypokalemia Urinary tract infection Qualifiers: Urinary tract infection type: site unspecified Hematuria presence: without hematuria Qualified Code(s): N39.0 - Urinary tract infection, site not specified Abdominal pain Qualifiers: Abdominal location: generalized Qualified Code(s): R10.84 - Generalized abdominal pain Condition: Stable Disposition: HOME, SELF-CARE Additional Instructions: CT scan of your abdomen and pelvis did not show an explanation for your worsening abdominal pain. You do have a urinary tract infection, so irritation of the bladder may be part of the reason your pain has gotten worse. Your potassium level was a little low today, you should increase potassium in your diet such as eating bananas for the next few days. Take the antibiotics as prescribed for the bladder infection. Follow-up with Dr. Luis tomorrow as scheduled. RETURN TO THE EMERGENCY ROOM IF ANY NEW OR WORSENING SYMPTOMS. Prescriptions: Sulfamethoxazole/Trimethoprim [Bactrim Ds Tablet] 2 tab PO BID #40 tablet Scribe Attestation: 06/02/17 10:17 I personally performed the services described in the documentation, reviewed and edited the documentation which was dictated to the scribe in my presence, and it accurately records my words and actions. (GERMAN KOO) Scribe Documentation - Scribe Written by Kellee:: kellee Francis, 06/02/17, 0651 acting as scribe for :: Lucian <RHEA NAGEL - Last Filed: 06/02/17 06:50>
[2017-06-02 06:48] LABS: ABSOLUTE BASOPHILS # (AUTO) 0.1 10^3/uL (0.0-0.2); ABSOLUTE EOSINOPHILS # (AUTO) 1.7 10^3/uL (0.0-0.6); ABSOLUTE LYMPHOCYTES (AUTO) 2.2 10^3/uL (0.5-4.7); ABSOLUTE NEUT (AUTO) 11.2 10^3/uL (1.7-8.2); BASOPHILS % (AUTO) 0.4 % (0-2); EOSINOPHILS % (AUTO) 10.5 % (0-6); HEMATOCRIT 37.5 % (37.9-51.0); HEMOGLOBIN 12.8 g/dL (13.5-17.0); HGB HCT DIFFERENCE 0.9; LYMPHOCYTES % (AUTO) 13.8 % (13-45); MEAN CORPUSCULAR HEMOGLOBIN 29.1 pg (27.0-33.4); MEAN CORPUSCULAR VOLUME 86 fl (80-97); MONOCYTES % (AUTO) 6.2 % (3-13); RED BLOOD COUNT 4.38 10^6/uL (4.35-5.55); RED CELL DISTRIBUTION WIDTH 17.4 % (11.5-14.0); SEGMENTED NEUTROPHILS % (AUTO) 69.1 % (42-78); WHITE BLOOD COUNT 16.2 10^3/uL (4.0-10.5)
[2017-06-02 07:01] LABS: ALANINE AMINOTRANSFERASE 50 U/L (21-72); ALBUMIN 3.2 g/dL (3.5-5.0); ALKALINE PHOSPHATASE 127 U/L (38-126); ANION GAP 10 (5-19); ASPARTATE AMINO TRANSFERASE 42 U/L (17-59); BILIRUBIN,DIRECT 0.3 mg/dL (0.0-0.4); BILIRUBIN,TOTAL 1.3 mg/dL (0.2-1.3); BLOOD UREA NITROGEN 12 mg/dL (7-20); CALCIUM 8.8 mg/dL (8.4-10.2); CARBON DIOXIDE 29 mmol/L (22-30); CHLORIDE 95 mmol/L (98-107); CREATININE RESULT 0.82 mg/dL (0.52-1.25); GLUCOSE 144 mg/dL (75-110); POTASSIUM 3.1 mmol/L (3.6-5.0); SODIUM 133.6 mmol/L (137-145); TOTAL PROTEIN 6.2 g/dL (6.3-8.2)
--- NOTE | 2017-06-02 07:06 | RADIOLOGY REPORT (SQ) ---
EXAM DESCRIPTION: KUB/ABDOMEN (SINGLE VIEW) COMPLETED DATE/TIME: 06/02/2017 6:52 am REASON FOR STUDY: abd pain, Stage IV bladder ca, ? constipation COMPARISON: None. NUMBER OF VIEWS: One view. TECHNIQUE: Supine radiographic image of the abdomen acquired. LIMITATIONS: None. FINDINGS: BOWEL GAS PATTERN: Normal bowel gas pattern. No dilated loops. CALCIFICATIONS: No suspicious calcifications. SOFT TISSUES: No gross mass or suggestion of organomegaly. HARDWARE: Multiple clips lower abdomen and pelvis. BONES: No bone lesions or fracture. OTHER: No other significant finding. IMPRESSION: NO RADIOGRAPHIC EVIDENCE FOR ACUTE ABDOMINAL DISEASE.
[2017-06-02] MEDS ORDERED: POTASSI CL 20 MEQ/50 ML RIDER 50 ML IV ONE (07:18)
[2017-06-02] MEDS ORDERED: HYDROMORPHONE HCL INJ/PF 2 MG/ML AMPULE IV ONE ×2 (07:41→09:43)
[2017-06-02 08:08] LABS: APPEARANCE,URINE SLIGHTLY-CLOUDY; BILIRUBIN,URINE NEGATIVE (NEGATIVE); GLUCOSE, URINE NEGATIVE (NEGATIVE); KETONES,URINE NEGATIVE (NEGATIVE); LEUKOCYTE ESTERASE,URINE LARGE (NEGATIVE); NITRITE,URINE NEGATIVE (NEGATIVE); PROTEIN,URINE 30 mg/dL (NEGATIVE); URINE SPECIFIC GRAVITY 1.005; UROBILINOGEN,URINE NEGATIVE mg/dL (<2.0)
[2017-06-02 09:21] VITALS: BP 170/113
--- NOTE | 2017-06-02 09:30 | RADIOLOGY REPORT (SQ) ---
EXAM DESCRIPTION: CT CHEST WITH COMPLETED DATE/TIME: 06/02/2017 8:43 am REASON FOR STUDY: abd pain, metastatic cancer COMPARISON: 04/27/2017. TECHNIQUE: CT scan of the chest performed using helical scanning technique with dynamic intravenous contrast injection. Images reviewed with lung, soft tissue and bone windows. Reconstructed coronal and sagittal MPR images reviewed. All images stored on PACS. All CT scanners at this facility use dose modulation, iterative reconstruction, and/or weight based d osing when appropriate to reduce radiation dose to as low as reasonably achievable (ALARA). [facility]: Dose Right [facility]: CareDose [facility]: Dose Right [facility]: Teradose 4D [facility]: Wheelright CONTRAST TYPE AND DOSE: contrast/concentration: Isovue 370.00 mg/ml; Total Contrast Delivered: 80.0 ml; Total Saline Delivered: 51.0 ml RENAL FUNCTION: BUN 12 creatinine 0.82. RADIATION DOSE: Up-to-date CT equipment and radiation dose reduction techniques were employed. CTDIv ol: 5.8 mGy. DLP: 242 mGy-cm. . LIMITATIONS: None. FINDINGS: LUNGS AND PLEURA: Numerous ill-defined bilateral lung masses. The majority of these have increased in size since the prior study. Most of the nodules were previously subcentimeter in size a nd now range in size up to 1.5 cm. No pleural effusion or pleural thickening. No pneumothorax. HILAR AND MEDIASTINAL STRUCTURES: Mediastinal and hilar adenopathy has worsened. Lymph node adjacent to the aortic arch currently measures 1.6 cm with prior measurement of 8 mm. Precarinal lymph node currently measures 1.6 cm with prior measurement of 8 mm. Right hilar lymph node currently measures 2.5 cm with prior measurement of 2.0 cm. Left hilar lymph node currently measures 1.5 cm with previo us measurement of 1.3 cm. Subcarinal adenopathy currently measures 2.4 cm with prior measurement of 2.0 cm. HEART AND VASCULAR STRUCTURES: No aneurysm or dissection. No central pulmonary emboli. No pericardi al effusion. HARDWARE: None in the chest. UPPER ABDOMEN: See separate report of the CT of the abdomen. THYROID AND OTHER SOFT TISSUES: No masses. No adenopathy. BONES: No significant finding. OTHER: No other significant finding. IMPRESSION: WORSENING METASTATIC DISEASE WITH PROGRESSIVE INCREASE IN SIZE OF THE PREVIOUSLY SEEN SUNI NG MASSES AND HILAR AND MEDIASTINAL ADENOPATHY. OTHERWISE NO OTHER ACUTE FINDINGS. TECHNICAL DOCUMENTATION: JOB ID: [id number] Quality ID # [id number]: Final reports with documentation of one or more dose reduction techniques (e.g., Au tomated exposure control, adjustment of the mA and/or kV according to patient size, use of iterative reconstruction technique) 2010 [employer]- All Rights Reserved
--- NOTE | 2017-06-02 09:37 | RADIOLOGY REPORT (SQ) ---
EXAM DESCRIPTION: CT ABD/PELVIS WITH IV ONLY COMPLETED DATE/TIME: 06/02/2017 8:43 am REASON FOR STUDY: abd pain COMPARISON: 04/12/2017 and 03/01/2017. TECHNIQUE: CT scan of the abdomen and pelvis performed using helical scanning technique with dynamic intravenous contrast injection. No oral contrast. Images reviewed with lung, soft tissue, and bone windows. Reconstructed coronal and sagittal MPR images reviewed. Delayed images for evaluation of the urinary system also acquired. All images stored on PACS. All CT scanners at this facility use dose modulation, iterative reconstruction, and/or weight based d osing when appropriate to reduce radiation dose to as low as reasonably achievable (ALARA). [facility]: Dose Right [facility]: CareDose [facility]: Dose Right [facility]: Teradose 4D [facility]: moziy CONTRAST TYPE AND DOSE: contrast/concentration: Isovue 370.00 mg/ml; Total Contrast Delivered: 37.0 ml; Total Saline Delivered: 55.0 ml RENAL FUNCTION: BUN 12 creatinine 0.82. RADIATION DOSE: Up-to-date CT equipment and radiation dose reduction techniques were employed. CTDIv ol: 5.0 - 6.1 mGy. DLP: 625 mGy-cm.. LIMITATIONS: None. FINDINGS: LOWER CHEST: No significant findings. No nodules or infiltrates. LIVER: Normal size. No masses. No dilated ducts. SPLEEN: Normal size. No focal lesions. PANCREAS: No masses. No significant calcifications. No adjacent inflammation or peripancreatic fluid collections. Pancreatic duct not dilated. GALLBLADDER: No identified stones by CT criteria. No inflammatory changes to suggest cholecystitis. ADRENAL GLANDS: No significant masses or asymmetry. RIGHT KIDNEY AND URETER: No solid masses. No significant calcifications. No hydronephrosis or hyd roureter. LEFT KIDNEY AND URETER: No solid masses. No significant calcifications. Mild hydronephrosis and h ydroureter with mild cortical thinning, unchanged. AORTA AND VESSELS: No aneurysm. No dissection. Renal arteries, SMA, celiac without stenosis. RETROPERITONEUM: Borderline left periaortic adenopathy with lymph nodes measuring just under 1 cm, un changed. BOWEL AND PERITONEAL CAVITY: No masses or inflammatory changes. No free fluid or peritoneal masses. APPENDIX: Normal. PELVIS: No mass. No free fluid. Surgical changes related to previous cystectomy and bladder reconst ruction. ABDOMINAL WALL: No masses. No hernias. BONES: No significant or acute findings. OTHER: No other significant finding. IMPRESSION: 1. STABLE SURGICAL CHANGES IN THE PELVIS SECONDARY TO CYSTECTOMY AND BLADDER RECONSTRUCTION. 2. STABLE CHRONIC MILD HYDRONEPHROSIS AND HYDROURETER OF THE LEFT KIDNEY WITH CORTICAL THINNING. 3. BORDERLINE PERIAORTIC ADENOPATHY, UNCHANGED. 4. NO OTHER SIGNIFICANT OR ACUTE FINDING IN THE ABDOMEN OR PELVIS ON CT SCAN WITH IV CONTRAST TECHNICAL DOCUMENTATION: JOB ID: [id number] Quality ID # [id number]: Final reports with documentation of one or more dose reduction techniques (e.g., Au tomated exposure control, adjustment of the mA and/or kV according to patient size, use of iterative reconstruction technique) 2010 [employer]- All Rights Reserved
[2017-06-02] MEDS ORDERED: METOPROLOL TARTRATE PF/INJ 5 MG/5 ML SDV IV ONE ×2 (09:39→09:57)
[2017-06-02] MEDS ORDERED: SULFAMETHOXAZOLE/TRIMETHOPRIM 800-160 MG TABLET PO ONE (09:56)
[2017-06-02] MEDS ORDERED: METOPROLOL TARTRATE 100 MG TABLET PO ONE (09:57)
[2017-06-02] MEDS ORDERED: POTASSIUM CHLORIDE 10 MEQ TABLET.SA PO ONE (10:14)
== END 2017-06-02 10:30 | disposition home or self-care (01) ==
LOC: ER 05:48
DX: N39.0 Urinary tract infection, site not specified (principal); E87.6 Hypokalemia; C67.9 Malignant neoplasm of bladder, unspecified; C78.01 Secondary malignant neoplasm of right lung; C78.02 Secondary malignant neoplasm of left lung; N13.30 Unspecified hydronephrosis; R10.84 Generalized abdominal pain; I10 Essential (primary) hypertension; Z92.21 Personal history of antineoplastic chemotherapy; Z86.14 Personal history of Methicillin resistant Staphylococcus aureus infection
CPT/HCPCS: 96376; 99284; 96375; 96365; 96366; 36415; 85025; 80053; 81001; 74000; 71260; 74177; J3490 ×3; J2270; J1170; J3480; J7030

== ENCOUNTER 2017-06-28 20:47 | Emergency (ER) | payer MEDICARE, MEDICAID ==
--- NOTE | 2017-06-28 21:32 | ER Document Report ---
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 Patient states that he is not currently taking any chemo or radiation and is waiting for an appointment with a larger facility. Patient states that he does self cath throughout the day and has a history of UTIs with MRSA. Patient states that he was on Bactrim in May for a month because of the MRSA infection. Patient states that he did have blood work yesterday and it was okay per patient. Patient takes 25 mcg of fentanyl and 60 mg of oxycodone for his pain. He is still eating and drinking without any difficulties otherwise. Patient states that the pain in his back does not radiate. He denies any saddle anesthesia, muscle paralysis/weakness, loss of control of bowel. Denies any headache, fever, neck pain, URI, sore throat, chest pain, palpitations, syncope, cough, shortness of breath, wheeze, dyspnea, nausea/vomiting/diarrhea, hematuria, or rash. - ROS Notes: REVIEW OF SYSTEMS: CONSTITUTIONAL : Denies fever, chills, or sweats. Denies recent illness. EENT: Denies eye, ear, throat, or mouth pain or symptoms. Denies nasal or sinus congestion or discharge. Denies throat, tongue, or mouth swelling or difficulty swallowing. CARDIOVASCULAR: Denies chest pain. Denies palpitations or racing or irregular heart beat. Denies ankle edema. RESPIRATORY: Denies cough, cold, or chest congestion. Denies shortness of breath, difficulty breathing, or wheezing. GASTROINTESTINAL: chronic pains GENITOURINARY: see hpi. MUSCULOSKELETAL: see hpi SKIN: Denies rash, lesions or sores. NEUROLOGICAL: Denies confusion or altered mental status. Denies passing out or loss of consciousness. Denies dizziness or lightheadedness. Denies headache. Denies weakness or paralysis or loss of use of either side. Denies problems with gait or speech. Denies sensory loss, numbness, or tingling. ALL OTHER SYSTEMS REVIEWED AND NEGATIVE. Dictation was performed using [employer] voice recognition software - REPRODUCTIVE Reproductive: DENIES: : - DERM Skin Color: Normal Past Medical History - Social History Smoking Status: Unknown if Ever Smoked Family History: Reviewed & Not Pertinent, Hypertension, Malignancy Patient has suicidal ideation: No Patient has homicidal ideation: No - Past Medical History Cardiac Medical History: Reports: Hx Hypertension Denies: Hx Coronary Artery Disease, Hx Heart Attack Pulmonary Medical History: Denies: Hx Asthma, Hx Bronchitis, Hx COPD Comment Only: Hx Pneumonia - NODULES ON LUNGS Neurological Medical History: Denies: Hx Cerebrovascular Accident, Hx Seizures Renal/ Medical History: Denies: Hx Peritoneal Dialysis Musculoskeltal Medical History: Denies Hx Arthritis Psychiatric Medical History: Reports: Hx Attention Deficit Hyperactivity Disorder, Hx Depression Past Surgical History: Reports: Hx Urinary Tract Surgery - bladder 01/16/16 --[facility] , prostate removed, Other - radical cystectomy/prostatectomy with tommy bladder - Immunizations Hx Diphtheria, Pertussis, Tetanus Vaccination: Yes Vertical Provider Document - CONSTITUTIONAL Agree With Documented VS: Yes Notes: PHYSICAL EXAMINATION: GENERAL: Well-appearing, cachectic and in no acute distress. NECK: Normal range of motion, supple without lymphadenopathy. no rigidity. LUNGS: Breath sounds clear to auscultation bilaterally and equal. No wheezes rales or rhonchi. HEART: Regular rate and rhythm without murmurs, rubs, gallops. ABDOMEN: Soft, nondistended abdomen. No guarding, no rebound. No masses appreciated. Normal bowel sounds present. No CVA tenderness bilaterally. + generalized tenderness (usual per patient) Musculoskeletal: LE's b/l: FROM to passive/active. Strength 5+/5. SLR neg. Back: FROM to passive/active. Strength 5+/5. + tenderness to L-paraspinal mm near L2-3. + mild spasming. Extremities: No cyanosis, clubbing, or edema b/l. Peripheral pulses 2+. Capillary refill less than 3 seconds. NEUROLOGICAL: Normal speech, normal gait. Normal sensory, motor exams PSYCH: Normal mood, normal affect. SKIN: Warm, Dry, normal turgor, no rashes or lesions noted. - INFECTION CONTROL TRAVEL OUTSIDE OF THE [place] IN LAST 30 DAYS: No - RESPIRATORY O2 Sat by Pulse Oximetry: 95 Course - Re-evaluation Re-evalutation: 06/28/17 23:10 Patient is an afebrile, well-hydrated, 36-year-old male who presents the ED with low back pain and UTI based on H&P today. Vitals are stable. PE otherwise unremarkable for any focal neurological deficits. CBC unremarkable. CMP showed a mildly low potassium. UA showed leuks with white blood cells. Urine culture is pending. Renal ultrasound was unremarkable for any acute pathology. 20 mEq potassium chloride given p.o. today. 2 mg morphine sulfate also given IV today x2. Low suspicion for any meningitis, fracture, expanding/ ruptured AAA, cauda equina syndrome, epidural abscess, herniated disc causing severe spinal stenosis, or other systemic infection at this time. There is always possibility that this pain could be related with his stage IV cancer. Patient is aware that his condition can change from initial presentation and that he needs monitor symptoms closely for any acute changes. Patient has a history of MRSA UTIs so I will cover him with Bactrim twice a day for 10 days. Conservative measures for symptoms otherwise as reviewed discharge. Recheck with your PCM in 2-3 days. Recheck with your oncologist in 2-3 days as well. Return to the ED with any worsening/concerning symptoms otherwise as reviewed discharge. Patient is in agreement. - Vital Signs Vital signs: Temp Pulse Resp BP Pulse Ox 98.1 F 97 22 H 160/95 H 95 06/28/17 20:53 06/28/17 20:53 06/28/17 20:53 06/28/17 20:53 06/28/17 20:53 - Laboratory Result Diagrams: 06/28/17 22:20 06/28/17 22:20 Discharge - Discharge Clinical Impression: UTI (urinary tract infection) Qualifiers: Urinary tract infection type: site unspecified Hematuria presence: without hematuria Qualified Code(s): N39.0 - Urinary tract infection, site not specified Low back pain Qualifiers: Chronicity: acute Back pain laterality: bilateral Sciatica presence: without sciatica Qualified Code(s): M54.5 - Low back pain Condition: Stable Disposition: HOME, SELF-CARE Instructions: Ice Packs ([facility]), Low Back Pain ([facility]), Urinary Tract Infection ( [facility]), Warm Packs ([facility]) Additional Instructions: Push fluids (i.e. water, cranberry juice) Proper hygenic technique Keep the skin clean Tylenol/ibuprofen as needed May use over the counter AZO for burning with urination Take medications as directed F/u with your PCM in 2-3 days for a recheck Recheck with your Oncologist in 2-3 days as well Consider consult with a Urologist for ongoing/worsening symptoms. Return to the ED with any worsening symptoms and/or development of fever, headache, chest pain, palpitations, syncope, shortness of breath, trouble breathing, abdominal pain, n/v/d, blood in stool/urine, loss of control of bowel /bladder, urinary retention, muscle weakness/paralysis, saddle anesthesia, numbness/tingling, or other worsening symptoms that are concerning to you. Prescriptions: Sulfamethoxazole/Trimethoprim [Bactrim Ds Tablet] 1 each PO BID #20 tablet Forms: Elevated Blood Pressure Referrals: JESSICA FERNÁNDEZ MD [ACTIVE STAFF] - 06/30/17
[2017-06-28] MEDS ORDERED: MORPHINE SULFATE 10 MG/ML INJ IV ONE ×2 (21:34→23:10)
[2017-06-28 21:54] LABS: AMORPHOUS SEDIMENT,URINE TRACE /HPF; APPEARANCE,URINE SLIGHTLY-CLOUDY; BILIRUBIN,URINE NEGATIVE (NEGATIVE); GLUCOSE, URINE NEGATIVE (NEGATIVE); KETONES,URINE NEGATIVE (NEGATIVE); LEUKOCYTE ESTERASE,URINE MODERATE (NEGATIVE); NITRITE,URINE NEGATIVE (NEGATIVE); PROTEIN,URINE 30 mg/dL (NEGATIVE); URINE SPECIFIC GRAVITY 1.009; UROBILINOGEN,URINE NEGATIVE mg/dL (<2.0)
--- NOTE | 2017-06-28 22:31 | RADIOLOGY REPORT (SQ) ---
EXAM DESCRIPTION: U/S RETROPERITON LTD COMPLETED DATE/TIME: 06/28/2017 10:16 pm REASON FOR STUDY: h/o stage 4 bladder CA, back pain COMPARISON: CT abdomen pelvis 12/06/2016, 12/25/2016, 03/01/2017, 04/12/2017, 06/02/2017 TECHNIQUE: Dynamic and static grayscale images acquired of the kidneys and bladder and recorded on P ACS. Additional selected color Doppler and spectral images recorded. LIMITATIONS: None. FINDINGS: RIGHT KIDNEY: Right kidney is 11 cm in length. Normal echogenicity. No solid or suspi cious masses. No hydronephrosis. No calcifications. LEFT KIDNEY: Left kidney is 9.6 cm in length. Normal echogenicity. No solid or suspicious masses . No hydronephrosis. No calcifications. BLADDER: Patient has a bladder reconstruction in his pelvis, no debris or bladder calculi are seen OTHER FINDINGS: No other significant finding. IMPRESSION: No hydronephrosis. TECHNICAL DOCUMENTATION: JOB ID: [id number] [employer]- All Rights Reserved
[2017-06-28 22:34] LABS: HEMOGLOBIN 12.4 g/dL (13.5-17.0); HGB HCT DIFFERENCE -0.8; MEAN CORPUSCULAR HEMOGLOBIN 28.3 pg (27.0-33.4); MEAN CORPUSCULAR HGB CONC 32.7 g/dL (32.0-36.0); MEAN CORPUSCULAR VOLUME 87 fl (80-97); RED BLOOD COUNT 4.38 10^6/uL (4.35-5.55); WHITE BLOOD COUNT 23.8 10^3/uL (4.0-10.5)
[2017-06-28 22:44] LABS: ALANINE AMINOTRANSFERASE 48 U/L (21-72); ALBUMIN 3.4 g/dL (3.5-5.0); ALKALINE PHOSPHATASE 127 U/L (38-126); ANION GAP 8 (5-19); ASPARTATE AMINO TRANSFERASE 29 U/L (17-59); BILIRUBIN,DIRECT 0.4 mg/dL (0.0-0.4); BILIRUBIN,TOTAL 0.4 mg/dL (0.2-1.3); BLOOD UREA NITROGEN 18 mg/dL (7-20); CALCIUM 9.6 mg/dL (8.4-10.2); CARBON DIOXIDE 26 mmol/L (22-30); CHLORIDE 105 mmol/L (98-107); CREATININE RESULT 0.82 mg/dL (0.52-1.25); GLUCOSE 159 mg/dL (75-110); POTASSIUM 3.3 mmol/L (3.6-5.0); SODIUM 139.4 mmol/L (137-145); TOTAL PROTEIN 6.8 g/dL (6.3-8.2)
[2017-06-28 22:53] LABS: BAND NEUTROPHILS % (MANUAL) 2 % (3-5); BASOPHILS % (MANUAL) 0 % (0-2); EOSINOPHILS % (MANUAL) 0 % (0-6); LYMPHOCYTES % (MANUAL) 7 % (13-45); TOTAL CELLS COUNTED 100
[2017-06-28 22:56] LABS: ANISOCYTOSIS 1+; POLYCHROMASIA 1+; TOXIC GRANULATION SLIGHT
[2017-06-28 22:59] LABS: PLATELET CLUMPS PRESENT
[2017-06-28] MEDS ORDERED: POTASSIUM CHLORIDE 10 MEQ TABLET.SA PO ONE (22:59)
[2017-06-28 23:43] VITALS: BP 148/104
[2017-06-30 10:33] LABS: PATH REVIEW PATHOLOGIST REVIEWED
== END 2017-06-28 23:44 | disposition home or self-care (01) ==
LOC: ER 20:47
DX: N39.0 Urinary tract infection, site not specified (principal); M54.5 Low back pain
CPT/HCPCS: 99284; 96374; 36415; 83690; 85025; 80053; 81001; 76775; J2270; A9270

== ENCOUNTER → 2017-07-08 | Outpatient (CLI) | payer MEDICARE, MEDICAID ==
--- NOTE | 2017-07-08 14:38 | RADIOLOGY REPORT (SQ) ---
EXAM DESCRIPTION: CT CHEST WITH; CT ABD/PELVIS WITH IV ORAL COMPLETED DATE/TIME: 07/08/2017 10:18 am REASON FOR STUDY: BLADDER CA (C67.9) C67.9 MALIGNANT NEOPLASM OF BLADDER, UNSPECIFIED COMPARISON: CT chest abdomen and pelvis 06/02/2017 CT chest 04/27/2017 CT abdomen pelvis 04/12/2017, 03/01/2017, 12/25/2016, 12/06/2016, 06/19/2016 CONTRAST TYPE AND DOSE: contrast/concentration: Isovue 370.00 mg/ml; Total Contrast Delivered: 71.0 ml; Total Saline Delivered: 66.0 ml RENAL FUNCTION: Creatinine 0.82 TECHNIQUE: CT scan of the chest performed using helical scanning technique with dynamic intravenous contrast injection. Images reviewed with lung, soft tissue and bone windows. Reconstructed coronal a nd sagittal MPR images reviewed. All images stored on PACS. CT scan of the abdomen and pelvis performed with intravenous and with oral contrastusing helical scan georgi technique with dynamic intravenous contrast injection. Images reviewed with lung, soft tissue a nd bone windows. Reconstructed coronal and sagittal MPR images reviewed. Delayed images for evaluat ion of the urinary system also acquired and evaluated. All images stored on PACS. All CT scanners at this facility use dose modulation, iterative reconstruction, and/or weight based d osing when appropriate to reduce radiation dose to as low as reasonably achievable (ALARA). [facility]: Dose Right [facility]: CareDose [facility]: Dose Right [facility]: Teradose 4D [facility]: [employer] RADIATION DOSE: Up-to-date CT equipment and radiation dose reduction techniques were employed. CTDIv ol: 4.5 - 4.7 mGy. DLP: 652 mGy-cm. . LIMITATIONS: None. FINDINGS: CHEST: LUNGS AND PLEURA: Overall increase in size and number of metastatic lung parenchymal nodules. Index lesions are as follows: Left upper lobe image 41, 1.7 x 1.6 cm (was 1.3 x 1.2 cm on 06/02/2017). Right lower lobe image 48, 3.7 x 3.7 cm (was 2.7 x 1.7 cm on 06/02/2017). There is now nodular pleural thickening with circumferential small bilateral pleural effusions. Lung parenchyma exhibits increased interlobular septa worrisome for lymphangitic tumor. HILAR AND MEDIASTINAL STRUCTURES: Increase in hilar and mediastinal adenopathy. Index lesions are as follows: Right paratracheal at the thoracic inlet image 8, 1.6 x 1 cm (was 0.9 x 0.5 cm on 06/02/2017). Left paratracheal at the thoracic inlet image 8, 1.9 x 1.6 cm (was 1.7 x 1.4 cm on 06/02/2017). Prevascular lymph node axial image 21, 2.7 x 2.2 cm in size (was 2.6 x 1.7 cm on 06/02/2017). Precarinal lymph node axial image 22, 3 x 2.2 cm in size (was 2.8 x 1.8 cm on 06/02/2017). Right hilum axial image 26 3.3 x 3.2 cm (was 2.8 x 2.7 cm on 06/02/2017). Left hilum axial image 33, 4.1 x 2.1 cm in size (was 3.5 x 1.7 cm on 06/02/2017). HEART AND VASCULAR STRUCTURES: No aneurysm or dissection. No central pulmonary emboli. No pericardi al effusion. HARDWARE: None. THYROID AND OTHER SOFT TISSUES: No masses. No adenopathy. BONES: Diffuse bony metastatic disease is now evident. There is mild upper endplate compression at T 9 adjacent to a lytic lesion. OTHER: No other significant finding. ABDOMEN AND PELVIS: LIVER: Normal size. No masses. No dilated ducts. SPLEEN: Normal size. No focal lesions. PANCREAS: No masses. No significant calcifications. No adjacent inflammation or peripancreatic fluid collections. Pancreatic duct not dilated. GALLBLADDER: No identified stones by CT criteria. No inflammatory changes to suggest cholecystitis. ADRENAL GLANDS: No significant masses or asymmetry. RIGHT KIDNEY AND URETER: No solid masses. No significant calcification. No hydronephrosis or hydroure ter. LEFT KIDNEY AND URETER: No solid masses. No significant calcification. No hydronephrosis or hydrouret er. AORTA AND VESSELS: No aneurysm. No dissection. Renal arteries, SMA, celiac without stenosis. RETROPERITONEUM: Scattered retroperitoneal lymph nodes are present, the largest on today's scan is 1. 7 x 1.2 cm in size axial image 37 (was 10 x 10 mm in size 06/02/2017). BOWEL AND PERITONEAL CAVITY: No masses or inflammatory changes. No free fluid or peritoneal masses. APPENDIX: Not identified. No right lower quadrant inflammation ABDOMINAL WALL: No masses. No hernias. BONES: Diffuse bony metastatic disease throughout the lumbar spine and pelvis. There is mild upper e ndplate compression at L3 adjacent to a lytic metastatic lesion PELVIS: Unchanged neobladder. Pelvic surgical clips post pelvic and lower abdominal retroperitoneal lymph node dissection. No other significant finding. IMPRESSION: Increase in size and number of lung parenchymal lesions Increase in size of mediastinal adenopathy There are increased interstitial markings with pleural thickening and trace pleural fluid bilaterally worrisome for lymphangitic tumor involvement. Numerous bony metastatic lesions with mild upper endplate compression deformities at T9 and L3, new c ompared to prior studies in May 2017 TECHNICAL DOCUMENTATION: JOB ID: [id number] Quality ID # [id number]: Final reports with documentation of one or more dose reduction techniques (e.g., Au tomated exposure control, adjustment of the mA and/or kV according to patient size, use of iterative reconstruction technique) 2010 [employer]- All Rights Reserved
== END ==
LOC: RAD 09:51
PROVIDERS: ATTEND Internal Medicine
DX: C67.9 Malignant neoplasm of bladder, unspecified (principal)
CPT/HCPCS: 71260; 74177

== ENCOUNTER 2017-07-16 11:48 | Emergency (ER) | payer MEDICARE, MEDICAID ==
--- NOTE | 2017-07-16 12:00 | ER Document Report ---
ED GI/ - General Mode of Arrival: Medic Information source: Patient TRAVEL OUTSIDE OF THE [place] IN LAST 30 DAYS: No <LOUIE MOREIRA - Last Filed: 07/16/17 12:39> <GERMAN KOO - Last Filed: 07/16/17 14:19> - General Stated Complaint: UNRESPONSIVE Time Seen by Provider: 07/16/17 11:52 Notes: Patient is a 36-year-old male with past medical history significant for bladder cancer with metastasis to the lungs who presents to the emergency department today secondary to being unresponsive this morning. The patient's fentanyl patches were raised from 75 mcg to 100 mcg yesterday. EMS states that the mentioned that this happened yesterday as well but he came around after 20 or 30 minutes of the patch being removed. EMS states they removed the patch today but he was still somewhat unresponsive so they administered 0.4 mg of narcan which made the patient alert and oriented at baseline. (LOUIE MOREIRA) - Related Data Allergies/Adverse Reactions: No Known Allergies Allergy (Verified 06/28/17 20:53) Past Medical History - General Information source: Patient - Social History Smoking Status: Current Every Day Smoker Cigarette use (# per day): Yes Frequency of alcohol use: None Drug Abuse: None Lives with: Family Family History: Reviewed & Not Pertinent, Hypertension, Malignancy - Past Medical History Cardiac Medical History: Reports: Hx Hypertension Pulmonary Medical History: Comment Only: Hx Pneumonia - NODULES ON LUNGS Malignancy Medical History: Reports Other - bladder cancer with metastasis to the lungs Psychiatric Medical History: Reports: Hx Attention Deficit Hyperactivity Disorder, Hx Depression Past Surgical History: Reports: Hx Urinary Tract Surgery - bladder 01/16/16 --[facility] , prostate removed, Other - radical cystectomy/prostatectomy with tommy bladder - Immunizations Hx Diphtheria, Pertussis, Tetanus Vaccination: Yes <LOUIE MOREIRA - Last Filed: 07/16/17 12:39> Review of Systems - Review of Systems Constitutional: Other - unresponsive according to EMS, AOx3 on arrival here. EENT: No symptoms reported Cardiovascular: No symptoms reported Respiratory: No symptoms reported Gastrointestinal: No symptoms reported Genitourinary: No symptoms reported Male Genitourinary: No symptoms reported Musculoskeletal: No symptoms reported Skin: No symptoms reported Hematologic/Lymphatic: No symptoms reported Neurological/Psychological: No symptoms reported -: Yes All other systems reviewed and negative <LOUIE MOREIRA - Last Filed: 07/16/17 12:39> Physical Exam - Vital signs Interpretation: Normal - General General appearance: Alert, Other - In good spirits, chronically ill appearing - HEENT Head: Normocephalic, Atraumatic Eyes: Normal Pupils: PERRL Mouth/Lips: Other - Posterior pharynx is erythematous. Mouth is very dry with white patch area consistent with thrush. - Respiratory Respiratory status: No respiratory distress Breath sounds: Normal Chest palpation: Normal - Cardiovascular Rhythm: Regular Heart sounds: Normal auscultation Murmur: No - Abdominal Inspection: Healed incision - consistnet with history Distension: No distension Bowel sounds: Normal Tenderness: Nontender Organomegaly: No organomegaly - Back Back: Normal, Nontender - Extremities General upper extremity: Normal inspection, Normal ROM. No: Edema General lower extremity: Normal inspection, Normal ROM. No: Edema - Neurological Neuro grossly intact: Yes Cognition: Normal Orientation: AAOx4 [place] Coma Scale Eye Opening: Spontaneous [place] Coma Scale Verbal: Oriented [place] Coma Scale Motor: Obeys Commands [place] Coma Scale Total: 15 Speech: Normal - Psychological Associated symptoms: Normal affect, Normal mood - Skin Skin Temperature: Warm Skin Moisture: Dry Skin Color: Normal <LOUIE MOREIRA - Last Filed: 07/16/17 12:39> - Vital signs Vitals: Resp 16 07/16/17 12:12 Course - Laboratory Result Diagrams: 07/16/17 12:00 07/16/17 12:00 <LOUIE MOREIRA - Last Filed: 07/16/17 12:39> - Laboratory Result Diagrams: 07/16/17 12:00 07/16/17 12:00 - Consults Dr. Luis Time consulted: 13:30 Consulted provider: follow-up in office - He will call the patient to make arrangements to reduce his fentanyl patch from 100 mcg to 75 mcg. <GERMAN KOO - Last Filed: 07/16/17 14:19> - Re-evaluation Re-evalutation: 07/16/17 14:16 The patient is now wide awake, drinking plenty of fluids and talking with his family. He is anxious to go and get something to eat at [facility]. ( GERMAN KOO) - Vital Signs Vital signs: Temp Pulse Resp BP Pulse Ox 98.5 F 100 18 137/97 H 92 07/16/17 12:25 07/16/17 12:25 07/16/17 12:25 07/16/17 12:25 07/16/17 12:25 - Laboratory Laboratory results interpreted by me: 07/16/17 07/16/17 07/16/17 12:00 12:00 12:25 WBC 19.8 H RDW 16.9 H Seg Neuts % (Manual) 88 H Band Neutrophils % 2 L Lymphocytes % (Manual) 4 L Monocytes % (Manual) 1 L Metamyelocytes % 2 H Abs Neuts (Manual) 18.2 H BUN 26 H Calcium 11.7 H Alkaline Phosphatase 167 H Albumin 3.3 L Ur Leukocyte Esterase MODERATE H Discharge <LOUIE MOREIRA - Last Filed: 07/16/17 12:39> <GERMAN KOO - Last Filed: 07/16/17 14:19> - Discharge Clinical Impression: Stage IV cancer of the bladder, Dehydration Opiate or related narcotic overdose Qualifiers: Encounter type: initial encounter Injury intent: accidental or unintentional Qualified Code(s): T40.601A - Poisoning by unspecified narcotics, accidental ( unintentional), initial encounter Condition: Stable Disposition: HOME, SELF-CARE Additional Instructions: Follow-up with Dr. Luis to have your Fentanyl patch dose reduced. Drink plenty of fluids today to stay well-hydrated. RETURN TO THE EMERGENCY ROOM IF ANY NEW OR WORSENING SYMPTOMS. Referrals: JESSICA LUIS MD [Primary Care Provider] - Follow up as needed Scribe Attestation: 07/16/17 13:04 I personally performed the services described in the documentation, reviewed and edited the documentation which was dictated to the scribe in my presence, and it accurately records my words and actions. (GERMAN KOO) Scribe Documentation - Scribe Written by Riley:: Riley Kirkpatrick, 07/16/2017 1238 acting as scribe for :: Lucian <LOUIE MOREIRA - Last Filed: 07/16/17 12:39>
[2017-07-16] MEDS ORDERED: NORMAL SALINE 1000 ML 1,000 ML IV ONE (12:03)
[2017-07-16 12:16] LABS: HEMATOCRIT 42.6 % (37.9-51.0); HGB HCT DIFFERENCE -0.6; MEAN CORPUSCULAR HEMOGLOBIN 28.1 pg (27.0-33.4); MEAN CORPUSCULAR HGB CONC 32.9 g/dL (32.0-36.0); MEAN CORPUSCULAR VOLUME 86 fl (80-97); RED BLOOD COUNT 4.98 10^6/uL (4.35-5.55); RED CELL DISTRIBUTION WIDTH 16.9 % (11.5-14.0); WHITE BLOOD COUNT 19.8 10^3/uL (4.0-10.5)
[2017-07-16 12:31] LABS: ALANINE AMINOTRANSFERASE 66 U/L (21-72); ALBUMIN 3.3 g/dL (3.5-5.0); ALKALINE PHOSPHATASE 167 U/L (38-126); ANION GAP 11 (5-19); ANISOCYTOSIS 1+; ASPARTATE AMINO TRANSFERASE 53 U/L (17-59); BAND NEUTROPHILS % (MANUAL) 2 % (3-5); BASOPHILS % (MANUAL) 0 % (0-2); BILIRUBIN,DIRECT 0.4 mg/dL (0.0-0.4); BILIRUBIN,TOTAL 0.8 mg/dL (0.2-1.3); BLOOD UREA NITROGEN 26 mg/dL (7-20); CALCIUM 11.7 mg/dL (8.4-10.2); CARBON DIOXIDE 27 mmol/L (22-30); CHLORIDE 103 mmol/L (98-107); CREATININE RESULT 0.88 mg/dL (0.52-1.25); EOSINOPHILS % (MANUAL) 3 % (0-6); GLUCOSE 99 mg/dL (75-110); LYMPHOCYTES % (MANUAL) 4 % (13-45); PLATELET CLUMPS PRESENT; POLYCHROMASIA SLIGHT; POTASSIUM 4.8 mmol/L (3.6-5.0); SODIUM 140.6 mmol/L (137-145); TOTAL CELLS COUNTED 100; TOTAL PROTEIN 6.9 g/dL (6.3-8.2); TOXIC GRANULATION 1+; TOXIC VACUOLATION PRESENT
[2017-07-16 12:57] LABS: AMORPHOUS SEDIMENT,URINE TRACE /HPF; APPEARANCE,URINE CLOUDY; BILIRUBIN,URINE NEGATIVE (NEGATIVE); GLUCOSE, URINE NEGATIVE (NEGATIVE); KETONES,URINE NEGATIVE (NEGATIVE); LEUKOCYTE ESTERASE,URINE MODERATE (NEGATIVE); NITRITE,URINE NEGATIVE (NEGATIVE); PROTEIN,URINE NEGATIVE (NEGATIVE); UROBILINOGEN,URINE NEGATIVE mg/dL (<2.0)
[2017-07-16] MEDS ORDERED: DEXTROSE 5%-NORMAL SALINE 1,000 ML IV ONE (13:02)
[2017-07-16 14:40] VITALS: BP 140/70
== END 2017-07-16 14:41 | disposition home or self-care (01) ==
LOC: ER 11:48
DX: C67.9 Malignant neoplasm of bladder, unspecified (principal); T40.601A Poisoning by unspecified narcotics, accidental (unintentional), initial encounter; E86.0 Dehydration; R41.82 Altered mental status, unspecified; F17.200 Nicotine dependence, unspecified, uncomplicated; Z79.899 Other long term (current) drug therapy
CPT/HCPCS: 99284; 96365; 36415; 85025; 80053; 81001; J7030

== ENCOUNTER 2017-07-20 19:15 | Inpatient (IN) | payer MEDICARE, MEDICAID ==
[~2017-07-20 19:15] MED LIST changes: -PROPOFOL INJ 200 MG/20 ML VIAL IV ONE; +ROCURONIUM BROMIDE INJ 50 MG/5 ML VIAL IV ONE; +SUCCINYLCHOLINE CHLORIDE INJ 200 MG/10 ML VIAL ONE
--- NOTE | 2017-07-20 19:22 | ER Document Report ---
ED General - General Stated Complaint: BREATHING DIFFICULTY Time Seen by Provider: 07/20/17 19:16 Information source: Patient, Emergency Med Personnel Notes: Unfortunate 36-year-old male who presents today with the onset around 3 days ago of some increased shortness of breath more than baseline. Patient has a history of bladder cancer with metastases to his lungs and possibly thoracic spine. Patient is on baseline 4 L of nasal cannula is at home. Patient states for the last 3 or 4 days he has had some increased shortness of breath with some nonradiating chest discomfort. He denies any real aggravating or relieving factors. He denies any nausea, vomiting, fevers, or bloody sputum. He denies any calf pain, leg swelling, or recent trips or travel. Patient is followed by Dr. Elizabeth, the admitting interviewer/oncologist. He is currently receiving chemotherapy without radiation. Patient is full code. EMS states when they initially arrived the patient was satting in the 70s. They state that he is improved with a nonrebreather. They state that the patient did not tolerate BiPAP. TRAVEL OUTSIDE OF THE [place] IN LAST 30 DAYS: No - HPI Onset: Other - See above Onset/Duration: Gradual Quality of pain: Achy Severity: Moderate Pain Level: 3 Associated symptoms: Other - See above Exacerbated by: Denies Relieved by: Denies Similar symptoms previously: Yes Recently seen / treated by doctor: Yes - Related Data Allergies/Adverse Reactions: No Known Allergies Allergy (Verified 06/28/17 20:53) Past Medical History - General Information source: Patient - Social History Smoking Status: Unknown if Ever Smoked Cigarette use (# per day): No Chew tobacco use (# tins/day): No Smoking Education Provided: No Frequency of alcohol use: None Drug Abuse: None Family History: Reviewed & Not Pertinent, Hypertension, Malignancy - Past Medical History Cardiac Medical History: Reports: Hx Hypertension Denies: Hx Coronary Artery Disease, Hx Heart Attack Pulmonary Medical History: Denies: Hx Asthma, Hx Bronchitis, Hx COPD Comment Only: Hx Pneumonia - NODULES ON LUNGS Neurological Medical History: Denies: Hx Cerebrovascular Accident, Hx Seizures Renal/ Medical History: Denies: Hx Peritoneal Dialysis Musculoskeltal Medical History: Denies Hx Arthritis Psychiatric Medical History: Reports: Hx Attention Deficit Hyperactivity Disorder, Hx Depression Past Surgical History: Reports: Hx Urinary Tract Surgery - bladder 01/16/16 --[facility] , prostate removed, Other - radical cystectomy/prostatectomy with tommy bladder - Immunizations Hx Diphtheria, Pertussis, Tetanus Vaccination: Yes Review of Systems - Review of Systems Constitutional: denies: Fever EENT: denies: Eye discharge, Nose discharge Cardiovascular: denies: Palpitations Respiratory: Short of breath Gastrointestinal: denies: Diarrhea, Vomiting Genitourinary: denies: Dysuria Musculoskeletal: denies: Leg swelling Skin: Other - no hives. denies: Rash Neurological/Psychological: Other - no slurred speech -: Yes All other systems reviewed and negative Physical Exam - Vital signs Vitals: Pulse Ox 83 L 07/20/17 19:15 Notes: Reviewed vital signs and nursing note as charted by RN. CONSTITUTIONAL: Alert and oriented; patient has an increased respiratory rate but is able speak in 3-5 word sentences HEAD: Normocephalic; atraumatic EYES: Sclerae non-icteric ENT: Normal nose; no rhinorrhea; dry mucous membranes; pharynx without lesions noted NECK: Supple without meningismus; non-tender; no cervical lymphadenopathy, no masses CARD: Regular rate and rhythm; no murmurs, no clicks, no rubs RESP: Normal chest excursion without splinting or tachypnea; breath sounds clear and equal bilaterally; no wheezes, no rhonchi, no rales ABD/GI: Normal bowel sounds; non-distended; soft, non-tender BACK: The back appears normal and is non-tender to palpation EXT: Normal ROM in all joints; non-tender to palpation; no cyanosis, no effusions, no edema SKIN: Normal color for age and race; warm; dry; good turgor; capillary refill < 2 seconds; no acute lesions noted NEURO: Moves all extremities equally; Motor and sensory function intact PSYCH: The patient's mood and manner are appropriate. Grooming and personal hygiene are appropriate. Course - Re-evaluation Re-evalutation: 07/20/17 19:21 Given the above history and physical examination the patient was placed in the trauma bay. Stat portable x-ray as well as laboratory values including an EKG and a troponin have been ordered. Patient states he will attempt to tolerate BiPAP. I have added a CTA of the chest given the elevated pretest probability for pulmonary embolism in this patient. 07/20/17 19:46 EKG shows a heart of 109, sinus tachycardia, normal axis, no obvious ST elevation or depression. Patient's oxygen saturation as recorded. Patient denies any active chest pain at this time. Given the probability of insensate loss with an increased respiratory rate dry mucous membranes, liter of fluid has been provided. Preliminary x-ray of the chest by portable x-ray shows multiple lesions to all lobes of the lungs. No obvious bony fractures with a normal heart size. Patient is afebrile. He denies any fevers or chills. I will provide a dose of Levaquin and had blood cultures. I believe these are most likely metastasic in nature. 07/20/17 21:22 CT scan is recorded. Patient has good oxygenation with an ABG as recorded on the face mask/BiPAP. Patient will be admitted to the hospitalist service. I have discussed hospice options. Hospice has already come by the house but the patient is currently a full code. - Vital Signs Vital signs: Temp Pulse Resp BP Pulse Ox 98.2 F 29 H 146/77 H 91 L 07/20/17 19:16 07/20/17 21:01 07/20/17 21:01 07/20/17 21:01 - Laboratory Result Diagrams: 07/20/17 19:20 07/20/17 19:20 Laboratory results interpreted by me: 07/20/17 07/20/17 07/20/17 19:20 19:20 19:35 WBC 29.1 H RDW 17.4 H Band Neutrophils % 2 L Metamyelocytes % 1 H Abs Neuts (Manual) 20.1 H Abs Lymphs (Manual) 6.4 H Abs Monocytes (Manual) 2.3 H ABG pH 7.47 H ABG pO2 143.3 H ABG HCO3 27.0 H ABG Total CO2 28.2 H ABG O2 Saturation 99.0 H Carbon Dioxide 33 H BUN 21 H Calcium 12.3 H* AST 60 H ALT 76 H Alkaline Phosphatase 189 H Albumin 3.3 L Critical Care Note - Critical Care Note Total time excluding time spent on procedures (mins): 45 Discharge - Discharge Clinical Impression: Metastatic cancer, Hypoxia Condition: Serious Disposition: ADMITTED INPATIENT Admitting Provider: Hospitalist Unit Admitted: [facility]
[2017-07-20 19:31] LABS: HEMATOCRIT 46.1 % (37.9-51.0); HEMOGLOBIN 15.5 g/dL (13.5-17.0); HGB HCT DIFFERENCE 0.4; MEAN CORPUSCULAR HEMOGLOBIN 28.4 pg (27.0-33.4); MEAN CORPUSCULAR HGB CONC 33.5 g/dL (32.0-36.0); MEAN CORPUSCULAR VOLUME 85 fl (80-97); RED BLOOD COUNT 5.44 10^6/uL (4.35-5.55); RED CELL DISTRIBUTION WIDTH 17.4 % (11.5-14.0); WHITE BLOOD COUNT 29.1 10^3/uL (4.0-10.5)
[2017-07-20 19:44] LABS: ARTERIAL BLOOD BASE EXCESS 3.4 mmol/L
[2017-07-20 19:45] LABS: ALANINE AMINOTRANSFERASE 76 U/L (21-72); ALBUMIN 3.3 g/dL (3.5-5.0); ALKALINE PHOSPHATASE 189 U/L (38-126); ANION GAP 7 (5-19); ASPARTATE AMINO TRANSFERASE 60 U/L (17-59); BILIRUBIN,DIRECT 0.3 mg/dL (0.0-0.4); BILIRUBIN,TOTAL 1.3 mg/dL (0.2-1.3); BLOOD UREA NITROGEN 21 mg/dL (7-20); CARBON DIOXIDE 33 mmol/L (22-30); CHLORIDE 101 mmol/L (98-107); CREATININE RESULT 0.83 mg/dL (0.52-1.25); GLUCOSE 105 mg/dL (75-110); POTASSIUM 3.9 mmol/L (3.6-5.0); SODIUM 141.3 mmol/L (137-145)
[2017-07-20 19:49] LABS: BAND NEUTROPHILS % (MANUAL) 2 % (3-5); BASOPHILS % (MANUAL) 0 % (0-2); EOSINOPHILS % (MANUAL) 1 % (0-6); LYMPHOCYTES % (MANUAL) 22 % (13-45); NUCLEATED RED BLOOD CELLS 1 /100 WBC (0); TOTAL CELLS COUNTED 100
[2017-07-20] MEDS ORDERED: LEVOFLOXACIN 750 MG/D5W RTU 750 MG/150 ML RTUPB IV ONE (19:49)
[2017-07-20] MEDS ORDERED: NORMAL SALINE 1000 ML 1,000 ML IV ONE (19:49)
[2017-07-20 19:53] LABS: CALCIUM 12.3 mg/dL (8.4-10.2)
[2017-07-20 19:55] LABS: ANISOCYTOSIS 1+; PLATELET CLUMPS PRESENT; POIKILOCYTOSIS SLIGHT; POLYCHROMASIA SLIGHT; TARGET CELLS SLIGHT; TEAR DROP CELLS SLIGHT; TOXIC GRANULATION SLIGHT; TOXIC VACUOLATION PRESENT
--- NOTE | 2017-07-20 19:56 | RADIOLOGY REPORT (SQ) ---
EXAM DESCRIPTION: CHEST SINGLE VIEW COMPLETED DATE/TIME: 07/20/2017 7:31 pm REASON FOR STUDY: tr1 metastatic bladder cancer to the lungs with so COMPARISON: 07/08/2017 EXAM PARAMETERS: NUMBER OF VIEWS: One view. TECHNIQUE: Single frontal radiographic view of the chest acquired. RADIATION DOSE: NA LIMITATIONS: None. FINDINGS: LUNGS AND PLEURA: Increased consolidated nodular opacities are present in both lungs, righ t greater than left. Similar left pleural effusion. No pneumothorax. MEDIASTINUM AND HILAR STRUCTURES: Stable contour. HEART AND VASCULAR STRUCTURES: Stable appearance. BONES: No acute findings. HARDWARE: None in the chest. OTHER: No other significant finding. IMPRESSION: Increased consolidated nodular opacities are present in both lungs, right greater than l eft. Similar left pleural effusion. TECHNICAL DOCUMENTATION: JOB ID: [id number]
--- NOTE | 2017-07-20 20:05 | EKG REPORT ---
SEVERITY:- OTHERWISE NORMAL ECG - SINUS TACHYCARDIA : Confirmed by: Jose Sierra MD 20-Jul-2017 20:04:46
[2017-07-20] MEDS ORDERED: HYDROMORPHONE HCL INJ/PF 2 MG/ML AMPULE IV ONE (20:23)
--- NOTE | 2017-07-20 21:17 | RADIOLOGY REPORT (SQ) ---
EXAM DESCRIPTION: CTA CHEST COMPLETED DATE/TIME: 07/20/2017 8:49 pm REASON FOR STUDY: tr1, blad cancer with metastases to the chest with COMPARISON: 07/08/2017 TECHNIQUE: CT scan of the chest performed using helical scanning technique with dynamic intravenous contrast injection. Images reviewed with lung, soft tissue and bone windows. Reconstructed coronal and sagittal MPR images reviewed. Additional 3 dimensional post-processing performed to develop Maximal Intensity Projection images (OR P). All images stored on PACS. All CT scanners at this facility use dose modulation, iterative reconstruction, and/or weight based d osing when appropriate to reduce radiation dose to as low as reasonably achievable (ALARA). [facility]: Dose Right [facility]: CareDose [facility]: Dose Right [facility]: Teradose 4D [facility]: [employer] CONTRAST TYPE AND DOSE: contrast/concentration: Isovue 370.00 mg/ml; Total Contrast Delivered: 83.0 ml; Total Saline Delivered: 110.1 ml Contrast bolus optimized for the pulmonary arteries. Not diagnostic for the aorta. RENAL FUNCTION: GFR > 60. RADIATION DOSE: Up-to-date CT equipment and radiation dose reduction techniques were employed. CTDIv ol: 14.3 - 23.2 mGy. DLP: 546 mGy-cm. . LIMITATIONS: None. FINDINGS: LUNGS AND PLEURA: Diffusely increased pulmonary and pleural metastatic lesions with increa sing subsegmental atelectasis in the lung bases. Similar small bilateral pleural effusions. No pneu mothorax. AORTA AND GREAT VESSELS: No dissection. HEART: No pericardial effusion. No significant coronary artery calcifications. PULMONARY ARTERIES: No emboli visualized in the main pulmonary arteries or the segmental branches. HILAR AND MEDIASTINAL STRUCTURES: Bulky adenopathy. HARDWARE: None in the chest. UPPER ABDOMEN: No acute findings. Limited exam. THYROID AND OTHER SOFT TISSUES: No masses. No adenopathy. BONES: Mildly Increased bony collapse of the superior endplates of the T9 and T10 vertebral bodies. Diffuse lytic metastatic disease. 3D MIPS: Confirm above findings. OTHER: No other significant finding. IMPRESSION: No emboli visualized in the main pulmonary arteries or the segmental branches. Mildly Increased bony collapse of the superior endplates of the T9 and T10 vertebral bodies. Progre ssive pulmonary metastatic disease. COMMENT: Quality ID # 436: Final reports with documentation of one or more dose reduction techniques (e.g., Automated exposure control, adjustment of the mA and/or kV according to patient size, use of iterative reconstruction technique) TECHNICAL DOCUMENTATION: JOB ID: [id number] [employer]- All Rights Reserved
[2017-07-20] MEDS ORDERED: LORAZEPAM INJ 2 MG/1 ML VIAL IV ONE (21:21)
[2017-07-20 23:31] LABS: ADD ON TESTING BLD IN LAB ACKNOWLEDGE
[2017-07-20 23:38] LABS: LIPASE 41.6 U/L (23-300); MAGNESIUM 1.7 mg/dL (1.6-2.3)
[2017-07-20] MEDS ORDERED: ALBUTEROL SULFATE 0.083% NEB 2.5 MG/3 ML AMPUL NEB PRN (23:43)
[2017-07-20] MEDS ORDERED: HYDROCORTISONE SOD SUCCINATE INJ/PF 100 MG/2 ML SDV IV ONE (23:45)
[2017-07-20] MEDS ORDERED: VANCOMYCIN HCL 0 MG in DEXTROSE 5%-WATER 250 ML IV NR (23:45)
[2017-07-20] MEDS ORDERED: INSULIN LISPRO 100 UNIT/ML 3 ML VIAL SUBCUT PRN (23:52)
[2017-07-20] MEDS ORDERED: GLUCAGON,HUMAN RECOMB 1 MG INJ IM PRN (23:52)
[2017-07-20] MEDS ORDERED: DEXTROSE 50%-WATER 25 GM/50 ML DISP.SYRIN IV PRN ×2 (23:52)
[2017-07-20] MEDS ORDERED: DEXTROSE 40% GEL 15 GM TUBE PO PRN ×2 (23:52)
[2017-07-20] MEDS ORDERED: ACETAMINOPHEN 325 MG TABLET NG PRN (23:56)
[2017-07-20] MEDS ORDERED: PROMETHAZINE HCL 25 MG SUPP.RECT PR PRN (23:56)
[2017-07-20] MEDS ORDERED: PROPOFOL INJ 200 MG/20 ML VIAL IV ONE (23:56)
[2017-07-21] MEDS ORDERED: VANCOMYCIN HCL INJ 1000 MG VIAL IV PRN (00:13)
[2017-07-21] MEDS ORDERED: VANCOMYCIN HCL INJ 500 MG VIAL IV PRN (00:14)
[2017-07-21] MEDS ORDERED: HYDROCORTISONE SOD SUCCINATE INJ/PF 100 MG/2 ML SDV IV ONE (00:15)
[2017-07-21] MEDS: PROPOFOL 100 ML IV PRN ×7 (00:18→22:27)
[2017-07-21] MEDS: MORPHINE SULFATE 10 MG/ML INJ IV PRN ×5 (00:18→20:06)
[2017-07-21] MEDS ORDERED: MORPHINE SULFATE 10 MG/ML INJ ONE (00:19)
[2017-07-21 00:23] LABS: PARTIAL THROMBOPLASTIN TIME 32.6 SEC (23.5-35.8); PROTHROMBIN TIME 14.2 SEC (11.4-15.4)
[2017-07-21] MEDS: DEXTROSE 5%-NORMAL SALINE 1,000 ML IV PRN ×3 (00:25→21:26)
[2017-07-21 00:27] LABS: ANION GAP 5 (5-19); BLOOD UREA NITROGEN 21 mg/dL (7-20); CALCIUM 11.5 mg/dL (8.4-10.2); CARBON DIOXIDE 27 mmol/L (22-30); CHLORIDE 105 mmol/L (98-107); CREATININE RESULT 0.75 mg/dL (0.52-1.25); GLUCOSE 118 mg/dL (75-110); POTASSIUM 4.8 mmol/L (3.6-5.0); SODIUM 136.7 mmol/L (137-145)
[2017-07-21] MEDS ORDERED: CEFEPIME 2 GM/D5W RTU 2 GM/50 ML RTUPB IV ONE (01:00)
[2017-07-21 01:03] LABS: ARTERIAL BLOOD O2 SATURATION 97.8 % (94-98)
[2017-07-21 01:18] LABS: AMORPHOUS SEDIMENT,URINE TRACE /HPF; APPEARANCE,URINE CLEAR; BILIRUBIN,URINE NEGATIVE (NEGATIVE); GLUCOSE, URINE NEGATIVE (NEGATIVE); KETONES,URINE NEGATIVE (NEGATIVE); LEUKOCYTE ESTERASE,URINE SMALL (NEGATIVE); NITRITE,URINE NEGATIVE (NEGATIVE); PROTEIN,URINE NEGATIVE (NEGATIVE); URINE SPECIFIC GRAVITY 1.018; UROBILINOGEN,URINE NEGATIVE mg/dL (<2.0)
--- NOTE | 2017-07-21 01:54 | RADIOLOGY REPORT (SQ) ---
EXAM DESCRIPTION: CHEST SINGLE VIEW COMPLETED DATE/TIME: 07/21/2017 12:11 am REASON FOR STUDY: intubation COMPARISON: 07/20/2017. EXAM PARAMETERS: NUMBER OF VIEWS: One view. TECHNIQUE: Single frontal radiographic view of the chest acquired. RADIATION DOSE: NA LIMITATIONS: None. FINDINGS: LUNGS AND PLEURA: Extensive and numerous bilateral pulmonary lesions and moderate left ple ural thickening consistent with prior exams. Moderate lung volume. MEDIASTINUM AND HILAR STRUCTURES: No masses. Contour normal. HEART AND VASCULAR STRUCTURES: Heart normal in size. Normal vasculature. BONES: No acute findings. HARDWARE: Adequate appearing endotracheal tube is 5.1 cm from the garth, and likely adequate NG tube obscured distally. OTHER: No other significant finding. IMPRESSION: No significant interval change. Extensive lung abnormalities consistent with known meta static disease. Lines and tubes. TECHNICAL DOCUMENTATION: JOB ID: [id number]
--- NOTE | 2017-07-21 01:56 | RADIOLOGY REPORT (SQ) ---
EXAM DESCRIPTION: CHEST SINGLE VIEW COMPLETED DATE/TIME: 07/21/2017 12:49 am REASON FOR STUDY: ett re positioned COMPARISON: 07/20/2017. EXAM PARAMETERS: NUMBER OF VIEWS: One view. TECHNIQUE: Single frontal radiographic view of the chest acquired. RADIATION DOSE: NA LIMITATIONS: None. FINDINGS: LUNGS AND PLEURA: Extensive pulmonary lesions and moderate left pleural thickening consist ent with known metastatic disease. MEDIASTINUM AND HILAR STRUCTURES: No masses. Contour normal. HEART AND VASCULAR STRUCTURES: Heart normal in size. Normal vasculature. BONES: No acute findings. HARDWARE: Adequate appearing endotracheal tube tip is 4.1 cm from the garth. Likely adequate NG tub e obscured distally. OTHER: No other significant finding. IMPRESSION: No significant interval change. TECHNICAL DOCUMENTATION: JOB ID: [id number]
[2017-07-21] MEDS ORDERED: VANCOMYCIN HCL 1,500 MG in DEXTROSE 5%-WATER 250 ML IV ONE (02:00)
[2017-07-21] MEDS: IPRATROPIUM/ALBUTEROL 0.5-2.5 MG/3 ML AMPUL NEB SCH ×4 (02:32→19:51)
--- NOTE | 2017-07-21 03:12 | RADIOLOGY REPORT (SQ) ---
EXAM DESCRIPTION: CT HEAD WITHOUT COMPLETED DATE/TIME: 07/21/2017 2:02 am REASON FOR STUDY: met bladder Ca COMPARISON: None. TECHNIQUE: Axial images acquired through the brain without intravenous contrast. Images reviewed wi th bone, brain and subdural windows. Images stored on PACS. All CT scanners at this facility use dose modulation, iterative reconstruction, and/or weight based d osing when appropriate to reduce radiation dose to as low as reasonably achievable (ALARA). [facility]: Dose Right [facility]: CareDose [facility]: Dose Right [facility]: Teradose 4D [facility]: Smart [place] RADIATION DOSE: Up-to-date CT equipment and radiation dose reduction techniques were employed. CTDIv ol: 64.6 mGy. DLP: 1163 mGy-cm. mGy. LIMITATIONS: Ulzm-[id number] motion artifact. FINDINGS: VENTRICLES: Normal size and contour. CEREBRUM: No masses. No hemorrhage. No midline shift. No evidence for acute infarction. Normal gra y/white matter differentiation. No areas of low density in the white matter. CEREBELLUM: No masses. No hemorrhage. No alteration of density. No evidence for acute infarction. EXTRAAXIAL SPACES: No fluid collections. No masses. ORBITS AND GLOBE: No intra- or extraconal masses. Normal contour of globe without masses. CALVARIUM: No fracture. PARANASAL SINUSES: No fluid or mucosal thickening. SOFT TISSUES: No mass or hematoma. OTHER: Endotracheal and nasogastric tubes. IMPRESSION: No acute findings. Limitation. COMMENT: Quality ID # 436: Final reports with documentation of one or more dose reduction techniques (e.g., Automated exposure control, adjustment of the mA and/or kV according to patient size, use of iterative reconstruction technique) TECHNICAL DOCUMENTATION: JOB ID: [id number]- All Rights Reserved
--- NOTE | 2017-07-21 03:35 | RADIOLOGY REPORT (SQ) ---
EXAM DESCRIPTION: CT ABD/PELVIS NO ORAL OR IV COMPLETED DATE/TIME: 07/21/2017 2:02 am REASON FOR STUDY: met bladder Ca; abd pain COMPARISON: 07/08/2017. TECHNIQUE: CT scan of the abdomen and pelvis performed without intravenous or oral contrast. Images reviewed with lung, soft tissue, and bone windows. Reconstructed coronal and sagittal MPR images revi ewed. All images stored on PACS. All CT scanners at this facility use dose modulation, iterative reconstruction, and/or weight based d osing when appropriate to reduce radiation dose to as low as reasonably achievable (ALARA). [facility]: Dose Right [facility]: CareDose [facility]: Dose Right [facility]: Teradose 4D [facility]: Smart [place] RADIATION DOSE: Up-to-date CT equipment and radiation dose reduction techniques were employed. CTDIv ol: 14.4 mGy. DLP: 777 mGy-cm.mGy. LIMITATIONS: Post excretion contrast only. Arm positioning. FINDINGS: LOWER CHEST: Extensive pulmonary lesions and moderate bilateral pleural with based at [facility] consistent with known metastatic pulmonary lesions. Minimal pericardial fluid. NON-CONTRASTED L moderate liver enlargement. IVER, SPLEEN, ADRENALS: Evaluation limited by lack of I V contrast. No identified significant masses. PANCREAS: No masses. No peripancreatic inflammatory changes. GALLBLADDER: No identified stones by CT criteria. No inflammatory changes to suggest cholecystitis. RIGHT KIDNEY AND URETER: No suspicious masses. Assessment limited by lack of IV contrast. No signif icant calcifications. No hydronephrosis or hydroureter. LEFT KIDNEY AND URETER: Moderate left renal volume loss. AORTA AND RETROPERITONEUM: Retroperitoneal lymphadenopathy includes a 1.5 x 1.1 cm lymph node in the left para-aortic area, image 34 of series 3. BOWEL AND PERITONEAL CAVITY: No obvious masses or inflammatory changes. No free fluid. APPENDIX: Normal. PELVIS, BLADDER, AND ABDOMINAL WALL:There is a posterior wall thickening/lobulation thickening of the posterior wall measuring 6 cm x 1.6 cm on post excretion imaging of a previously described neobladde r. Numerous surgical clips of the retroperitoneum and pelvis. BONES: Increased extensive lytic lesions throughout the skeleton. Mild anterior L3 with pathologic c ompression fracture worsened. Small L5-S1 disc bulge. OTHER: Adequate appearing NG tube. IMPRESSION: No acute findings. Interval worsening of known metastatic disease involves the skeleton , visualized lung bases, and possibly the neobladder. Limitations. COMMENT: Quality ID # [id number]: Final reports with documentation of one or more dose reduction techniques (e.g., Automated exposure control, adjustment of the mA and/or kV according to patient size, use of iterative reconstruction technique) TECHNICAL DOCUMENTATION: JOB ID: [id number] [employer]- All Rights Reserved
[2017-07-21 04:33] LABS: ARTERIAL BLOOD BASE EXCESS 0.4 mmol/L; ARTERIAL BLOOD O2 SATURATION 96.6 % (94-98)
[2017-07-21] MEDS ORDERED: HYDROCORTISONE SOD SUCCINATE INJ/PF 100 MG/2 ML SDV IV SCH (06:00)
[2017-07-21 06:39] LABS: ALANINE AMINOTRANSFERASE 55 U/L (21-72); ALBUMIN 2.3 g/dL (3.5-5.0); ALKALINE PHOSPHATASE 128 U/L (38-126); ANION GAP 7 (5-19); ASPARTATE AMINO TRANSFERASE 47 U/L (17-59); BILIRUBIN,DIRECT 0.6 mg/dL (0.0-0.4); BILIRUBIN,TOTAL 0.8 mg/dL (0.2-1.3); BLOOD UREA NITROGEN 25 mg/dL (7-20); CALCIUM 11.7 mg/dL (8.4-10.2); CARBON DIOXIDE 24 mmol/L (22-30); CHLORIDE 106 mmol/L (98-107); CREATININE RESULT 0.86 mg/dL (0.52-1.25); GLUCOSE 136 mg/dL (75-110); POTASSIUM 4.1 mmol/L (3.6-5.0); SODIUM 137.2 mmol/L (137-145); TOTAL PROTEIN 5.3 g/dL (6.3-8.2)
[2017-07-21 06:42] LABS: HEMATOCRIT 37.5 % (37.9-51.0); HEMOGLOBIN 12.4 g/dL (13.5-17.0); HGB HCT DIFFERENCE -0.3; MEAN CORPUSCULAR HEMOGLOBIN 27.9 pg (27.0-33.4); MEAN CORPUSCULAR VOLUME 85 fl (80-97); RED BLOOD COUNT 4.44 10^6/uL (4.35-5.55); RED CELL DISTRIBUTION WIDTH 17.2 % (11.5-14.0)
[2017-07-21 07:01] LABS: BAND NEUTROPHILS % (MANUAL) 4 % (3-5); BASOPHILS % (MANUAL) 0 % (0-2); EOSINOPHILS % (MANUAL) 0 % (0-6); LYMPHOCYTES % (MANUAL) 5 % (13-45); TOTAL CELLS COUNTED 100
[2017-07-21 07:05] LABS: ANISOCYTOSIS 1+; BURR CELLS SLIGHT; HYPOCHROMASIA SLIGHT; PLATELET CLUMPS PRESENT; POIKILOCYTOSIS SLIGHT; POLYCHROMASIA SLIGHT; TEAR DROP CELLS SLIGHT; TOXIC GRANULATION SLIGHT; TOXIC VACUOLATION PRESENT
[2017-07-21] MEDS ORDERED: MIDAZOLAM HCL 100 ML IV ONE (07:56)
--- NOTE | 2017-07-21 08:00 | PDOC H&P ---
History of Present Illness Admission Date/PCP: 07/20/17 23:43 Primary care provider none Oncology Dr. Luis Patient complains of: Breathing difficulty History of Present Illness: YOSI MART JR is a 36 year old male with widely metastatic bladder cancer, including skeletal metastases, along with multiple bilateral pulmonary metastases, but with otherwise no chronic underlying pulmonary disease who presents to the emergency room for a several day history of progressive shortness of breath, even at rest. Patient has been discussed with emergency room physician who evaluated the patient. Portion of history is provided by his fiance, who is present, along with a male other sports official, with his approval. Patient at times is simply too short of breath to answer all questions. Upon EMS arrival, saturations were in the 70 percentile range. He improved with a nonrebreather mask, but did not tolerate BiPAP mask, and refused reapplication of BiPAP. Baseline, he is on 4 L oxygen per nasal cannula at home. Had his first dose of Keytruda approximately 10 days ago. Fianc states he has been worsening steadily since then. No nausea vomiting, fever or chills, or diarrhea. Has surgically constructed neobladder after extensive surgery for his bladder cancer. Has been self catheterizing himself for some time now. Has been on twice daily dexamethasone for at least the last 2 months, according to fianc. Dictation via voice recognition software. Laboratory results are listed in [employer] and are reviewed. X-ray summary results are listed below, with full report(s) reviewed. . EKG reviewed and compared to prior tracing from May 30 of last year. Social history/personal habits: Engaged to be . 10-year-old son. On disability due to his health problems. Half pack a day smoker. No alcohol or illicit drug use. No known drug allergies. Home medications initially autopopulated into [employer] may not accurately reflect patient's true medications, dosages, and/or frequencies. seating and mobility technologist to reconcile medications. Unfortunately, patient not certain of all medications/dosages/frequencies. REVIEW OF SYSTEMS: Constitutional: No fever or chills. Eyes: No vision complaints. ENT: No swallowing problems or complaints. Denies hearing loss. Pulmonary: See history and present illness. Cardiovascular: See history and present illness. Gastrointestinal: No current complaints, including nausea or vomiting. Skin: No current complaints, including rashes. Hematologic: Denies easy bruising. Neurologic: No current complaints, including numbness or tingling. Musculoskeletal: No current or chronic joint complaints, such as arthritis. Psychiatric: Anxiety and depression. No suicidal or homicidal ideation. Endocrine: No current complaints, including polyuria. Genitourinary: No current complaints, including dysuria. PHYSICAL EXAMINATION: 5 feet 10 inches tall. 64.3 kg. BMI 20.3 kg/m. Blood pressure 126/86. Pulse 109 and regular. 90% saturation on 100% nonrebreather mask. Respirations are 35, with patient making moderate use of accessory respiratory muscles. Cannot lie back due to shortness of breath. Fianc and a male other sports official are present at his side; patient approves. Thin almost emaciated sickly appearing male who is in obvious respiratory distress. Awake alert and cooperative, however. Skin is warm and dry. No grossly obvious evidence of rash in areas of skin examined. No subcutaneous nodules palpated. ENT: Hearing grossly normal to normal conversation. Tongue midline on protrusion pink and tacky. Eyes: No scleral icterus. Pupils equal and reactive to light at 4 mm. [place] conjunctivae. Neck is supple and nontender to gentle active range of motion and palpation. Midline trachea. No palpable thyroid nodule mass enlargement or tenderness. Lymphatic: No palpable cervical or clavicular nodes. Neck and lymphatic exams limited by patient body habitus. Psychiatric: Reasonable insight into acute and chronic medical issues. Oriented to time location and why here. Lungs: Auscultation reveals clear and equal breath sounds bilaterally. Moderate use of accessory respiratory muscles. Cardiovascular: Heart regular rate and rhythm, without gallop murmur or rub. No carotid or abdominal aortic bruits. No ankle or pedal edema. Faintly palpable dorsalis pedis pulses. Abdomen:soft slightly distended with positive bowel sounds. Mild diffuse tenderness, but without evidence of guarding or peritoneal signs. Unable to adequately evaluate abdomen for masses or organomegaly due to distention. Extremities: Feet are warm and dry. No calf tenderness to compression. No grossly obvious visual evidence of calf swelling. Gentle manipulation of lower extremities fails to reveal any obvious evidence of injury or instability to knees hips or ankles. Neurologic: Moves all 4 extremities grossly normally. Patellar reflexes absent. Absent Babinski. Light touch is intact at feet. Dorsiflexion and plantarflexion of feet 5 / 5 and symmetric. Past Medical History Cardiac Medical History: Reports: Hypertension Denies: Atrial Fibrillation, Congestive Heart Failure, Coronary Artery Disease, DVT, Myocardial Infarction, Hyperlipidema, Pulmonary Embolism Pulmonary Medical History: Reports: Other - Widespread metastases to both lungs Denies: Asthma, Bronchitis, Chronic Obstructive Pulmonary Disease (COPD) EENT Medical History: Denies: Eyes, Ears, Throat Neurological Medical History: Denies: Hemorrhagic CVA, Ischemic CVA, Seizures Endocrine Medical History: Denies: Diabetes Mellitus Type 1, Diabetes Mellitus Type 2, Hyperthyroidism, Hypothyroidism Malignancy Medical History: Reports: Other - Stage IV bladder cancer GI Medical History: Reports: Gastroesophageal Reflux Disease, Hepatitis - Hepatitis C, untreated Denies: Cirrhosis, Peptic Ulcer Disease Musculoskeltal Medical History: Denies: Arthritis Psychiatric Medical History: Reports: Attention Deficit Hyperactivity Disorder, Depression, General Anxiety Disorder, Tobacco Dependency Denies: Alcohol Dependency, Substance Abuse Past Surgical History Past Surgical History: Reports: Other - radical cystectomy/prostatectomy with tmomy bladder Social History Information Source: Patient, Friend - Fianc, Emergency Med Personnel, [facility], [facility] Records Smoking Status: Current Every Day Smoker Frequency of Alcohol Use: None Hx Recreational Drug Use: - LUIS pt intubated and sedated Drugs: None Hx Prescription Drug Abuse: - LUIS pt intubated and sedated - Advance Directive Resuscitation Status: Full Code Surrogate healthcare decision maker:: His fiance Family History Family History: Reviewed & Not Pertinent, Hypertension, Malignancy Parental Family History Reviewed: Yes - Father alive with prostate cancer; mother Jay Cano with a broken hip Children Family History Reviewed: Yes - Healthy Sibling(s) Family History Reviewed.: Yes - Healthy Medication/Allergy Allergies/Adverse Reactions: No Known Allergies Allergy (Verified 06/28/17 20:53) Physical Exam Vital Signs: Temp Pulse Resp BP Pulse Ox 99.0 F 102 H 16 102/65 95 07/21/17 06:01 07/21/17 02:30 07/21/17 06:01 07/21/17 06:01 07/21/17 06:01 Intake & Output 07/20/17 07/21/17 07/22/17 00:59 00:59 00:59 Intake Total 791 Output Total 1050 395 Balance -1050 396 Weight 64.3 kg 64.3 kg Results Laboratory Results: 07/21/17 06:14 07/21/17 06:14 07/21/17 07/21/17 07/21/17 00:00 00:01 00:50 WBC RBC Hgb Hct MCV MCH MCHC RDW Plt Count Seg Neutrophils % Lymphocytes % Monocytes % Eosinophils % Basophils % Absolute Neutrophils Absolute Lymphocytes Absolute Monocytes Absolute Eosinophils Absolute Basophils Carbonic Acid 1.47 H HCO3/H2CO3 Ratio 18:1 ABG pH 7.36 ABG pCO2 48.9 H ABG pO2 110.4 H ABG HCO3 27.1 H ABG O2 Saturation 97.8 ABG Base Excess 1.0 FiO2 100% Sodium 136.7 L Potassium 4.8 Chloride 105 Carbon Dioxide 27 Anion Gap 5 BUN 21 H Creatinine 0.75 Est GFR ( Amer) > 60 Est GFR (Non-Af Amer) > 60 Glucose 118 H Calcium 11.5 H Total Bilirubin AST ALT Alkaline Phosphatase Total Protein Albumin Urine Color YELLOW Urine Appearance CLEAR Urine pH 7.0 Ur Specific [place] 1.018 Urine Protein NEGATIVE Urine Glucose (UA) NEGATIVE Urine Ketones NEGATIVE Urine Blood NEGATIVE Urine Nitrite NEGATIVE Ur Leukocyte Esterase SMALL H Urine WBC (Auto) 15 Urine RBC (Auto) 3 07/21/17 07/21/17 07/21/17 04:25 06:14 06:14 WBC 23.0 H RBC 4.44 Hgb 12.4 L D Hct 37.5 L MCV 85 MCH 27.9 MCHC 33.0 RDW 17.2 H Plt Count 217 Seg Neutrophils % Not Reportable Lymphocytes % Not Reportable Monocytes % Not Reportable Eosinophils % Not Reportable Basophils % Not Reportable Absolute Neutrophils Not Reportable Absolute Lymphocytes Not Reportable Absolute Monocytes Not Reportable Absolute Eosinophils Not Reportable Absolute Basophils Not Reportable Carbonic Acid 1.20 HCO3/H2CO3 Ratio 20:1 ABG pH 7.42 ABG pCO2 39.8 ABG pO2 85.1 ABG HCO3 24.9 ABG O2 Saturation 96.6 ABG Base Excess 0.4 FiO2 70% Sodium 137.2 Potassium 4.1 Chloride 106 Carbon Dioxide 24 Anion Gap 7 BUN 25 H Creatinine 0.86 Est GFR ( Amer) > 60 Est GFR (Non-Af Amer) > 60 Glucose 136 H Calcium 11.7 H Total Bilirubin 0.8 AST 47 ALT 55 Alkaline Phosphatase 128 H Total Protein 5.3 L Albumin 2.3 L Urine Color Urine Appearance Urine pH Ur Specific [place] Urine Protein Urine Glucose (UA) Urine Ketones Urine Blood Urine Nitrite Ur Leukocyte Esterase Urine WBC (Auto) Urine RBC (Auto) 07/21/17 07/21/17 01:29 06:14 Troponin I 0.142 0.093 Impressions: Chest/Abdomen CTA 07/20/17 19:43 IMPRESSION: No emboli visualized in the main pulmonary arteries or the segmental branches. Mildly Increased bony collapse of the superior endplates of the T9 and T10 vertebral bodies. Progressive pulmonary metastatic disease. Abdomen/Pelvis CT 07/21/17 00:00 IMPRESSION: No acute findings. Interval worsening of known metastatic disease involves the skeleton, visualized lung bases, and possibly the neobladder. Limitations. Chest X-Ray 07/21/17 00:00 IMPRESSION: No significant interval change. Head CT 07/21/17 00:00 IMPRESSION: No acute findings. Limitation. Assessment & Plan - Diagnosis (1) Acute respiratory failure with hypoxemia Is this a current diagnosis for this admission?: Yes Plan: Examination in the emergency room revealed patient to be in moderate, progressive respiratory distress. CODE STATUS was discussed in manuel layperson's terms with patient and fianc. He wishes to remain full code. Therefore, decision was made to proceed with endotracheal intubation, which was accomplished by the RESEARCH STAFF MEMBER. Prior to the intubation, as noted above, Manuel discussion was had twice with patient and his fiance along with male other sports official. Female emergency room nurse Cony present each time. All understand patient may never be able to come off the ventilator due to his overall health condition, in particular the status of his lungs. Again, this point was stressed twice in layperson's terms. Patient wishes to proceed with endotracheal intubation, and as noted above, wishes to remain a full code. Respiratory insufficiency is likely secondary primarily to diffuse metastases, but due to leukocytosis, and immunosuppressed state, Patient will be admitted under pneumonia protocol. Scheduled DuoNeb's. As needed albuterol nebs. Antibiotics will consist of cefepime, and intravenous Levaquin and vancomycin. Pharmacy to assist with dosing. Pulmonary consult. Knee high SCDs for DVT prophylaxis, along with subcutaneous Lovenox. Time spent in evaluation and management of patient: 108 critical-care minutes. (2) Elevated troponin Is this a current diagnosis for this admission?: Yes (3) Generalized abdominal pain Is this a current diagnosis for this admission?: Yes Plan: CT scan of abdomen and pelvis. (4) Hypercalcemia Is this a current diagnosis for this admission?: Yes Plan: Follow-up chemistry. (5) Leukocytosis Qualifiers: Leukocytosis type: unspecified Qualified Code(s): D72.829 - Elevated white blood cell count, unspecified Is this a current diagnosis for this admission?: Yes (6) On antineoplastic chemotherapy Is this a current diagnosis for this admission?: Yes Plan: Oncology consult. (7) Stage IV cancer of the bladder Is this a current diagnosis for this admission?: Yes (8) Steroid dependence Is this a current diagnosis for this admission?: Yes Plan: Luciu-Nathan. - Time Critical Time spent with patient: 35 or more minutes Anticipated discharge: Other Within: Other - Inpatient Certification Based on my medical assessment, after consideration of the patient's comorbidities, presenting symptoms, or acuity I expect that the services needed warrant INPATIENT care.: Yes I certify that my determination is in accordance with my understanding of Medicare's requirements for reasonable and necessary INPATIENT services [42 CFR 412.3e].: Yes Medical Necessity: Need For IV Fluids, Need For Continuous Telemetry Monitoring , Need for IV Antibiotics, Risk of Diagnosis Which Will Require Inpatient Eval/ Care/Monitoring Post Hospital Care: D/C or Transfer Summary
[2017-07-21] MEDS ORDERED: KETAMINE HCL INJ 500 MG/10 ML VIAL ONE (08:18)
[2017-07-21] MEDS ORDERED: KETAMINE HCL INJ 500 MG/10 ML VIAL IV PRN (08:24)
--- NOTE | 2017-07-21 08:56 | PDOC PROGRESS REPORT ---
Subjective Progress Note for:: 07/21/17 Subjective:: The patient is currently intubated and sedated. Review of systems cannot be obtained. However, I did receive a phone call from the nurse stating that the patient was fighting against the vent. He was on 70 of propofol and was given additional doses of morphine to try and keep him calm but this did not help. I therefore ordered Versed. By the time I got to the room, the patient was heavily sedated and not able to be aroused. Dr. Negro was also at bedside. Plan at that time was to get the patient ketamine to help however he was sedated enough with this plan was deferred. No family is currently at bedside. Physical Exam Vital Signs: Temp Pulse Resp BP Pulse Ox 99.0 F 102 H 16 102/65 95 07/21/17 06:01 07/21/17 02:30 07/21/17 06:01 07/21/17 06:01 07/21/17 06:01 Intake & Output 07/20/17 07/21/17 07/22/17 06:59 06:59 06:59 Intake Total 791 Output Total 1445 250 Balance -654 -250 Weight 64.3 kg Vent: The patient was just switched to CPAP mode and seems to be tolerating this well with the PEEP of 8 Lines: 3 peripheral lines 2 on the left one on the right Drips: Propofol, Versed. Antibiotics: Vanc and Levaquin GENERAL: This is a well-developed, thin chronically ill-appearing young white male resting in bed on the ventilator HEENT: Normocephalic, atraumatic. Trachea is midline. Pupils constricted. No scleral icterus. HEART: Tachycardic at 116. No murmurs rubs or gallops. LUNGS: Clear to auscultation from the anterior perspective bilaterally with equal rise and fall of the chest. ABDOMEN: Soft, nontender, nondistended with hypoactive bowel sounds : Pollock catheter is in place draining geoff colored urine. EXTREMETIES: No clubbing, cyanosis or edema. 2+ posterior tibialis pulses bilaterally. NEURO: Sedated on the ventilator. Cranial nerve exam cannot be adequately performed. Results Laboratory Results: 07/21/17 06:14 07/21/17 06:14 07/21/17 07/21/17 07/21/17 00:00 00:01 00:50 WBC RBC Hgb Hct MCV MCH MCHC RDW Plt Count Seg Neutrophils % Lymphocytes % Monocytes % Eosinophils % Basophils % Absolute Neutrophils Absolute Lymphocytes Absolute Monocytes Absolute Eosinophils Absolute Basophils Carbonic Acid 1.47 H HCO3/H2CO3 Ratio 18:1 ABG pH 7.36 ABG pCO2 48.9 H ABG pO2 110.4 H ABG HCO3 27.1 H ABG O2 Saturation 97.8 ABG Base Excess 1.0 FiO2 100% Sodium 136.7 L Potassium 4.8 Chloride 105 Carbon Dioxide 27 Anion Gap 5 BUN 21 H Creatinine 0.75 Est GFR ( Amer) > 60 Est GFR (Non-Af Amer) > 60 Glucose 118 H Calcium 11.5 H Total Bilirubin AST ALT Alkaline Phosphatase Total Protein Albumin Urine Color YELLOW Urine Appearance CLEAR Urine pH 7.0 Ur Specific [place] 1.018 Urine Protein NEGATIVE Urine Glucose (UA) NEGATIVE Urine Ketones NEGATIVE Urine Blood NEGATIVE Urine Nitrite NEGATIVE Ur Leukocyte Esterase SMALL H Urine WBC (Auto) 15 Urine RBC (Auto) 3 07/21/17 07/21/17 07/21/17 04:25 06:14 06:14 WBC 23.0 H RBC 4.44 Hgb 12.4 L D Hct 37.5 L MCV 85 MCH 27.9 MCHC 33.0 RDW 17.2 H Plt Count 217 Seg Neutrophils % Not Reportable Lymphocytes % Not Reportable Monocytes % Not Reportable Eosinophils % Not Reportable Basophils % Not Reportable Absolute Neutrophils Not Reportable Absolute Lymphocytes Not Reportable Absolute Monocytes Not Reportable Absolute Eosinophils Not Reportable Absolute Basophils Not Reportable Carbonic Acid 1.20 HCO3/H2CO3 Ratio 20:1 ABG pH 7.42 ABG pCO2 39.8 ABG pO2 85.1 ABG HCO3 24.9 ABG O2 Saturation 96.6 ABG Base Excess 0.4 FiO2 70% Sodium 137.2 Potassium 4.1 Chloride 106 Carbon Dioxide 24 Anion Gap 7 BUN 25 H Creatinine 0.86 Est GFR ( Amer) > 60 Est GFR (Non-Af Amer) > 60 Glucose 136 H Calcium 11.7 H Total Bilirubin 0.8 AST 47 ALT 55 Alkaline Phosphatase 128 H Total Protein 5.3 L Albumin 2.3 L Urine Color Urine Appearance Urine pH Ur Specific [place] Urine Protein Urine Glucose (UA) Urine Ketones Urine Blood Urine Nitrite Ur Leukocyte Esterase Urine WBC (Auto) Urine RBC (Auto) 07/21/17 07/21/17 01:29 06:14 Troponin I 0.142 0.093 Impressions: Chest/Abdomen CTA 07/20/17 19:43 IMPRESSION: No emboli visualized in the main pulmonary arteries or the segmental branches. Mildly Increased bony collapse of the superior endplates of the T9 and T10 vertebral bodies. Progressive pulmonary metastatic disease. Abdomen/Pelvis CT 07/21/17 00:00 IMPRESSION: No acute findings. Interval worsening of known metastatic disease involves the skeleton, visualized lung bases, and possibly the neobladder. Limitations. Chest X-Ray 07/21/17 00:00 IMPRESSION: No significant interval change. Head CT 07/21/17 00:00 IMPRESSION: No acute findings. Limitation. Assessment & Plan - Diagnosis (1) Acute respiratory failure with hypoxemia Is this a current diagnosis for this admission?: Yes Plan: At this point it appears that the patient's respiratory failure is largely due to increased tumor burden in the chest. The patient has metastasis to the lungs brain and skeleton. He is currently intubated and on CPAP settings. Management per Dr. Negro with pulmonology. He is sedated continue nebulizers as needed, suctioning. Sputum cultures were sent. Patient is on currently on any empiric antibiotics. Because of his immunocompromised state, and elevated white count and respiratory distress I am going to start empiric Levaquin and vancomycin. At this point I do not see that he has a concomitant obvious pneumonia. He remains afebrile. Dr. Negro concurs and has agreed to place a central line to accommodate the need for medication administration not only for antibiotics but also if the patient will ultimately need pressor support (2) Steroid dependence Is this a current diagnosis for this admission?: Yes Plan: Patient is on steroids for brain metastasis from bladder cancer. This will be resumed. (3) Hypercalcemia Is this a current diagnosis for this admission?: Yes Plan: Secondary to widespread metastasis. Continue IV fluids. Calcium has already declined from 12 down to 11. (4) Bladder cancer metastasized to intra-abdominal lymph nodes Plan: Dr. Cuellar has been consulted. This is his outpatient oncologist. He is status post chemotherapy approximately 10 days ago. Continue current steroids. (5) Chronic pain due to neoplasm Plan: Although no home medications have been verified, it is reported that the patient is on chronic outpatient morphine. (6) Chronic, continuous use of opioids Plan: Since has as needed morphine available. However, he is currently sedated on Versed and propofol. (7) End of life care Plan: The patient is currently full code. He expressed these wishes to Dr. Viveros which he is documented. In addition to this he has selected his fiance to make medical decisions for him. Apparently the patient's parents are still alive. There is no formal legal documentation for his fiance to make medical decisions. We will need to discuss this in detail with the family. At this point the patient's prognosis is poor. I would recommend DNR status and consideration of hospice care/comfort care. - Time Critical Time spent with patient: 35 or more minutes - Inpatient Certification Based on my medical assessment, after consideration of the patient's comorbidities, presenting symptoms, or acuity I expect that the services needed warrant INPATIENT care.: Yes Medical Necessity: Need Close Monitoring Due to Risk of Patient Decompensation
--- NOTE | 2017-07-21 09:12 | PDOC CONSULTATION ---
History of Present Illness Admission Date/PCP: 07/20/17 23:43 Patient complains of: Stage IV urothelial ca, resp failure History of Present Illness: 36-year-old male well-known to our oncology clinic with stage IV urothelial cancer, currently is on second line therapy with OPDIVO, unfortunately he has had overt progression, recently saw [facility], who recommended continuing with immunotherapy, he has had progressive lung metastasis as well as bony metastasis, he comes in with severe shortness of breath and chest pain, he has been on higher and higher doses of oxygen, ultimately he went into respiratory failure and was intubated, is now intubated and sedated, central line is being placed. Past Medical History Cardiac Medical History: Reports: Hypertension Denies: Atrial Fibrillation, Congestive Heart Failure, Coronary Artery Disease, DVT, Myocardial Infarction, Hyperlipidema, Pulmonary Embolism Pulmonary Medical History: Reports: Other - Widespread metastases to both lungs Denies: Asthma, Bronchitis, Chronic Obstructive Pulmonary Disease (COPD) Comment Only: Pneumonia - NODULES ON LUNGS EENT Medical History: Denies: Eyes, Ears, Throat Neurological Medical History: Denies: Hemorrhagic CVA, Ischemic CVA, Seizures Endocrine Medical History: Denies: Diabetes Mellitus Type 1, Diabetes Mellitus Type 2, Hyperthyroidism, Hypothyroidism Malignancy Medical History: Reports: Other - Stage IV bladder cancer GI Medical History: Reports: Gastroesophageal Reflux Disease, Hepatitis - Hepatitis C, untreated Denies: Cirrhosis, Peptic Ulcer Disease Musculoskeltal Medical History: Denies: Arthritis Psychiatric Medical History: Reports: Attention Deficit Hyperactivity Disorder, Depression, General Anxiety Disorder, Tobacco Dependency Denies: Alcohol Dependency, Substance Abuse Hematology: Reports: Anemia Past Surgical History Past Surgical History: Reports: Other - radical cystectomy/prostatectomy with tommy bladder Social History Smoking Status: Current Every Day Smoker Frequency of Alcohol Use: None Hx Recreational Drug Use: - LUIS pt intubated and sedated Drugs: None Hx Prescription Drug Abuse: - LUIS pt intubated and sedated - Advance Directive Resuscitation Status: Full Code Family History Family History: Reviewed & Not Pertinent, Hypertension, Malignancy Parental Family History Reviewed: Yes Children Family History Reviewed: Yes Sibling(s) Family History Reviewed.: Yes Medication/Allergy Allergies/Adverse Reactions: No Known Allergies Allergy (Verified 06/28/17 20:53) Review of Systems ROS unobtainable: Due to endotracheal tube, Due to mental status Physical Exam Vital Signs: Temp Pulse Resp BP Pulse Ox 99.0 F 112 H 18 102/65 95 07/21/17 06:01 07/21/17 08:11 07/21/17 08:11 07/21/17 06:01 07/21/17 08:11 Intake & Output 07/20/17 07/21/17 07/22/17 06:59 06:59 06:59 Intake Total 791 Output Total 1445 250 Balance -654 -250 Weight 64.3 kg General appearance: PRESENT: no acute distress Head exam: PRESENT: atraumatic Mouth exam: PRESENT: dry mucosa Respiratory exam: PRESENT: crackles Cardiovascular exam: PRESENT: RRR. ABSENT: diastolic murmur, rubs, systolic murmur GI/Abdominal exam: PRESENT: normal bowel sounds, soft. ABSENT: distended, guarding, mass, organolmegaly, rebound, tenderness Rectal exam: PRESENT: deferred Neurological exam: PRESENT: other - Intubated, sedated Results Laboratory Results: 07/21/17 06:14 07/21/17 06:14 07/21/17 07/21/17 07/21/17 00:00 00:01 00:50 WBC RBC Hgb Hct MCV MCH MCHC RDW Plt Count Seg Neutrophils % Lymphocytes % Monocytes % Eosinophils % Basophils % Absolute Neutrophils Absolute Lymphocytes Absolute Monocytes Absolute Eosinophils Absolute Basophils Carbonic Acid 1.47 H HCO3/H2CO3 Ratio 18:1 ABG pH 7.36 ABG pCO2 48.9 H ABG pO2 110.4 H ABG HCO3 27.1 H ABG O2 Saturation 97.8 ABG Base Excess 1.0 FiO2 100% Sodium 136.7 L Potassium 4.8 Chloride 105 Carbon Dioxide 27 Anion Gap 5 BUN 21 H Creatinine 0.75 Est GFR ( Amer) > 60 Est GFR (Non-Af Amer) > 60 Glucose 118 H Calcium 11.5 H Total Bilirubin AST ALT Alkaline Phosphatase Total Protein Albumin Urine Color YELLOW Urine Appearance CLEAR Urine pH 7.0 Ur Specific [place] 1.018 Urine Protein NEGATIVE Urine Glucose (UA) NEGATIVE Urine Ketones NEGATIVE Urine Blood NEGATIVE Urine Nitrite NEGATIVE Ur Leukocyte Esterase SMALL H Urine WBC (Auto) 15 Urine RBC (Auto) 3 07/21/17 07/21/17 07/21/17 04:25 06:14 06:14 WBC 23.0 H RBC 4.44 Hgb 12.4 L D Hct 37.5 L MCV 85 MCH 27.9 MCHC 33.0 RDW 17.2 H Plt Count 217 Seg Neutrophils % Not Reportable Lymphocytes % Not Reportable Monocytes % Not Reportable Eosinophils % Not Reportable Basophils % Not Reportable Absolute Neutrophils Not Reportable Absolute Lymphocytes Not Reportable Absolute Monocytes Not Reportable Absolute Eosinophils Not Reportable Absolute Basophils Not Reportable Carbonic Acid 1.20 HCO3/H2CO3 Ratio 20:1 ABG pH 7.42 ABG pCO2 39.8 ABG pO2 85.1 ABG HCO3 24.9 ABG O2 Saturation 96.6 ABG Base Excess 0.4 FiO2 70% Sodium 137.2 Potassium 4.1 Chloride 106 Carbon Dioxide 24 Anion Gap 7 BUN 25 H Creatinine 0.86 Est GFR ( Amer) > 60 Est GFR (Non-Af Amer) > 60 Glucose 136 H Calcium 11.7 H Total Bilirubin 0.8 AST 47 ALT 55 Alkaline Phosphatase 128 H Total Protein 5.3 L Albumin 2.3 L Urine Color Urine Appearance Urine pH Ur Specific [place] Urine Protein Urine Glucose (UA) Urine Ketones Urine Blood Urine Nitrite Ur Leukocyte Esterase Urine WBC (Auto) Urine RBC (Auto) 07/21/17 07/21/17 01:29 06:14 Troponin I 0.142 0.093 Impressions: Chest/Abdomen CTA 07/20/17 19:43 IMPRESSION: No emboli visualized in the main pulmonary arteries or the segmental branches. Mildly Increased bony collapse of the superior endplates of the T9 and T10 vertebral bodies. Progressive pulmonary metastatic disease. Abdomen/Pelvis CT 07/21/17 00:00 IMPRESSION: No acute findings. Interval worsening of known metastatic disease involves the skeleton, visualized lung bases, and possibly the neobladder. Limitations. Chest X-Ray 07/21/17 00:00 IMPRESSION: No significant interval change. Head CT 07/21/17 00:00 IMPRESSION: No acute findings. Limitation. Status: Image reviewed by me Assessment & Plan - Diagnosis (1) Stage IV cancer of the bladder Is this a current diagnosis for this admission?: Yes Plan: Patient with known stage IV urothelial cancer, at this point I do not believe any further therapy will help him, we do agree with ultimately going to comfort care measures, but suspected family and patient would want full measures to happen right now to see how he does. Regardless will be available for further discussion with the family when needed. - Time Time Spent: Greater than 70 Minutes Critical Time spent with patient: 35 or more minutes
[2017-07-21] MEDS ORDERED: NORMAL SALINE INJ/PF 0.9% 10 ML SDV IV PRN (09:54)
--- NOTE | 2017-07-21 09:56 | RADIOLOGY REPORT (SQ) ---
EXAM DESCRIPTION: CHEST SINGLE VIEW COMPLETED DATE/TIME: 07/21/2017 9:43 am REASON FOR STUDY: Central Line Placement COMPARISON: CT chest 07/20/2017 Chest films 04/24/2017, 04/27/2017, 07/20/2017, 07/21/2017 hours EXAM PARAMETERS: NUMBER OF VIEWS: One view. TECHNIQUE: Single frontal radiographic view of the chest acquired. RADIATION DOSE: NA LIMITATIONS: None. FINDINGS: LUNGS AND PLEURA: Multiple pulmonary metastatic lesions are present. There is diffuse bilateral alveolar and interstitial infiltrates from pneumonia or edema. ARDS is po ssible. This is similar compared to 07/20/2017 and 07/21/2017 0038 hours. Stable left small pleural effusion. No pneumothorax. MEDIASTINUM AND HILAR STRUCTURES: No masses. Contour normal. HEART AND VASCULAR STRUCTURES: Heart normal in size. Normal vasculature. BONES: No acute findings. HARDWARE: Endotracheal tube tip 5 cm above the garth. Right jugular central line tip superior vena cava. Nasogastric tube tip and side port below the hemidiaphragms. OTHER: No other significant finding. IMPRESSION: Tubes and lines in good positioning. Unchanged diffuse bilateral alveolar and interstitial opacities from edema or pneumonia Stable tiny left pleural effusion TECHNICAL DOCUMENTATION: JOB ID: [id number]
[2017-07-21 10:19] LABS: ARTERIAL BLOOD BASE EXCESS 0.6 mmol/L; ARTERIAL BLOOD O2 SATURATION 97.7 % (94-98)
[2017-07-21] MEDS: ENOXAPARIN SODIUM INJ 40 MG/0.4 ML DISP.SYRIN SUBCUT SCH (10:54)
[2017-07-21] MEDS: FAMOTIDINE INJ/PF 20 MG/2 ML SDV IV SCH ×2 (10:54→21:35)
[2017-07-21] MEDS: HYDROCORTISONE SOD SUCCINATE INJ/PF 100 MG/2 ML SDV IV SCH ×2 (10:54→17:11)
[2017-07-21] MEDS: CEFEPIME 2 GM/D5W RTU 2 GM/50 ML RTUPB IV SCH ×2 (10:55→21:34)
--- NOTE | 2017-07-21 12:19 | PDOC CONSULTATION ---
Consultation Consult Date: 07/21/17 Attending physician:: DONNA CHAIREZ Consult reason:: acute resp failure/lung metastasis History of Present Illness Admission Date/PCP: 07/20/17 23:43 History of Present Illness: 36-year-old male Presented complaining increasing shortness of breath patient has long history of ureter vesicular malignancy with metastasis to the bones as well as the lungs. He apparently was coughing up some yellow phlegm but at the time of his presentation to the ER he was profoundly hypoxic and subsequently, intubated no additional information is available as no family members are at the bedside.He is being followed by Dr. Luis of oncology as well as several evaluations.by [facility]. Past Medical History Cardiac Medical History: Reports: Hypertension Denies: Atrial Fibrillation, Congestive Heart Failure, Coronary Artery Disease, DVT, Myocardial Infarction, Hyperlipidema, Pulmonary Embolism Pulmonary Medical History: Reports: Other - Widespread metastases to both lungs Denies: Asthma, Bronchitis, Chronic Obstructive Pulmonary Disease (COPD) Comment Only: Pneumonia - NODULES ON LUNGS EENT Medical History: Denies: Eyes, Ears, Throat Neurological Medical History: Denies: Hemorrhagic CVA, Ischemic CVA, Seizures Endocrine Medical History: Denies: Diabetes Mellitus Type 1, Diabetes Mellitus Type 2, Hyperthyroidism, Hypothyroidism Malignancy Medical History: Reports: Other - Stage IV bladder cancer GI Medical History: Reports: Gastroesophageal Reflux Disease, Hepatitis - Hepatitis C, untreated Denies: Cirrhosis, Peptic Ulcer Disease Musculoskeltal Medical History: Denies: Arthritis Psychiatric Medical History: Reports: Attention Deficit Hyperactivity Disorder, Depression, General Anxiety Disorder, Tobacco Dependency Denies: Alcohol Dependency, Substance Abuse Hematology: Reports: Anemia Past Surgical History Past Surgical History: Reports: Other - radical cystectomy/prostatectomy with tommy bladder Social History Information Source: [facility] Records Lives with: Family Smoking Status: Current Every Day Smoker Frequency of Alcohol Use: None Hx Recreational Drug Use: - LUIS pt intubated and sedated Drugs: None Hx Prescription Drug Abuse: - LUIS pt intubated and sedated - Advance Directive Resuscitation Status: Full Code Family History Family History: Reviewed & Not Pertinent, Hypertension, Malignancy Parental Family History Reviewed: No Children Family History Reviewed: No Sibling(s) Family History Reviewed.: No Medication/Allergy Home Medications: Albuterol Sulfate [Proair HFA] 1 puff IH Q4HP PRN 07/21/17 Amlodipine Besylate [Norvasc 5 mg Tablet] 5 mg PO DAILY 07/21/17 Clonazepam [Klonopin 1 mg Tablet] 2 mg PO QHS 07/21/17 Clonazepam [Klonopin] 1 mg PO DAILY 07/21/17 Dexamethasone [Decadron 4 mg Tablet] 4 mg PO Q12 07/21/17 Dextroamphetamine/Amphetamine [Adderall 20 mg Tablet] 20 mg PO BID 07/21/17 Esomeprazole Magnesium [Nexium] 40 mg PO DAILY 07/21/17 Fentanyl [Duragesic 75 Mcg/Hr Transdermal Patch] 1 patch TOP Q3D 07/21/17 Megestrol Acetate 20 ml PO DAILY 07/21/17 Metoprolol Tartrate [Lopressor 100 mg Tablet] 100 mg PO Q12 07/21/17 Mirtazapine [Remeron] 45 mg PO QHS 07/21/17 Nystatin [Mycostatin 831216 Unit/1 ml Susp 60 ml Btl] 5 ml PO QID 07/21/17 Ondansetron HCl [Zofran 8 mg Tablet] 8 mg PO Q8HP PRN 07/21/17 Oxycodone HCl [Roxicodone] 30 mg PO Q4HP PRN 07/21/17 Paroxetine HCl [Paxil] 40 mg PO DAILY 07/21/17 Temazepam [Restoril 15 mg Capsule] 15 mg PO QHS 07/21/17 Allergies/Adverse Reactions: No Known Allergies Allergy (Verified 06/28/17 20:53) Review of Systems ROS unobtainable: Due to endotracheal tube Physical Exam Vital Signs: Temp Pulse Resp BP Pulse Ox 99.0 F 112 H 18 102/65 95 07/21/17 06:01 07/21/17 08:11 07/21/17 08:11 07/21/17 06:01 07/21/17 08:11 Intake & Output 07/20/17 07/21/17 07/22/17 06:59 06:59 06:59 Intake Total 791 Output Total 1445 250 Balance -654 -250 Weight 64.3 kg General appearance: PRESENT: no acute distress, disheveled, thin, well-developed Head exam: PRESENT: atraumatic, normocephalic Eye exam: PRESENT: conjunctiva pale Mouth exam: PRESENT: dry mucosa, neck supple, tongue midline, other - ET tube in place Neck exam: ABSENT: carotid bruit, JVD, lymphadenopathy, thyromegaly Respiratory exam: PRESENT: decreased breath sounds, prolonged expiratory phas, rales, rhonchi, symmetrical, unlabored. ABSENT: retraction, stridor, tachypnea Cardiovascular exam: PRESENT: RRR, +S1, +S2 Pulses: PRESENT: normal radial pulses GI/Abdominal exam: PRESENT: normal bowel sounds, soft. ABSENT: distended, guarding, mass, organolmegaly, rebound, tenderness Rectal exam: PRESENT: deferred Gentrourinary exam: PRESENT: indwelling catheter Extremities exam: PRESENT: +1 edema Skin exam: PRESENT: dry, warm Results Laboratory Results: 07/21/17 06:14 07/21/17 06:14 07/21/17 07/21/17 07/21/17 00:00 00:01 00:50 WBC RBC Hgb Hct MCV MCH MCHC RDW Plt Count Seg Neutrophils % Lymphocytes % Monocytes % Eosinophils % Basophils % Absolute Neutrophils Absolute Lymphocytes Absolute Monocytes Absolute Eosinophils Absolute Basophils Carbonic Acid 1.47 H HCO3/H2CO3 Ratio 18:1 ABG pH 7.36 ABG pCO2 48.9 H ABG pO2 110.4 H ABG HCO3 27.1 H ABG O2 Saturation 97.8 ABG Base Excess 1.0 FiO2 100% Sodium 136.7 L Potassium 4.8 Chloride 105 Carbon Dioxide 27 Anion Gap 5 BUN 21 H Creatinine 0.75 Est GFR ( Amer) > 60 Est GFR (Non-Af Amer) > 60 Glucose 118 H Calcium 11.5 H Total Bilirubin AST ALT Alkaline Phosphatase Total Protein Albumin Urine Color YELLOW Urine Appearance CLEAR Urine pH 7.0 Ur Specific [place] 1.018 Urine Protein NEGATIVE Urine Glucose (UA) NEGATIVE Urine Ketones NEGATIVE Urine Blood NEGATIVE Urine Nitrite NEGATIVE Ur Leukocyte Esterase SMALL H Urine WBC (Auto) 15 Urine RBC (Auto) 3 07/21/17 07/21/17 07/21/17 04:25 06:14 06:14 WBC 23.0 H RBC 4.44 Hgb 12.4 L D Hct 37.5 L MCV 85 MCH 27.9 MCHC 33.0 RDW 17.2 H Plt Count 217 Seg Neutrophils % Not Reportable Lymphocytes % Not Reportable Monocytes % Not Reportable Eosinophils % Not Reportable Basophils % Not Reportable Absolute Neutrophils Not Reportable Absolute Lymphocytes Not Reportable Absolute Monocytes Not Reportable Absolute Eosinophils Not Reportable Absolute Basophils Not Reportable Carbonic Acid 1.20 HCO3/H2CO3 Ratio 20:1 ABG pH 7.42 ABG pCO2 39.8 ABG pO2 85.1 ABG HCO3 24.9 ABG O2 Saturation 96.6 ABG Base Excess 0.4 FiO2 70% Sodium 137.2 Potassium 4.1 Chloride 106 Carbon Dioxide 24 Anion Gap 7 BUN 25 H Creatinine 0.86 Est GFR ( Amer) > 60 Est GFR (Non-Af Amer) > 60 Glucose 136 H Calcium 11.7 H Total Bilirubin 0.8 AST 47 ALT 55 Alkaline Phosphatase 128 H Total Protein 5.3 L Albumin 2.3 L Urine Color Urine Appearance Urine pH Ur Specific [place] Urine Protein Urine Glucose (UA) Urine Ketones Urine Blood Urine Nitrite Ur Leukocyte Esterase Urine WBC (Auto) Urine RBC (Auto) 07/21/17 07/21/17 01:29 06:14 Troponin I 0.142 0.093 Impressions: Chest/Abdomen CTA 07/20/17 19:43 IMPRESSION: No emboli visualized in the main pulmonary arteries or the segmental branches. Mildly Increased bony collapse of the superior endplates of the T9 and T10 vertebral bodies. Progressive pulmonary metastatic disease. Abdomen/Pelvis CT 07/21/17 00:00 IMPRESSION: No acute findings. Interval worsening of known metastatic disease involves the skeleton, visualized lung bases, and possibly the neobladder. Limitations. Chest X-Ray 07/21/17 00:00 IMPRESSION: No significant interval change. Head CT 07/21/17 00:00 IMPRESSION: No acute findings. Limitation. Assessment & Plan - Diagnosis (1) Acute respiratory failure with hypoxemia Is this a current diagnosis for this admission?: Yes Plan: Supportive therapy maintain pH with adequate ventilation and adequate P SaO2's (3) Hypercalcemia Is this a current diagnosis for this admission?: Yes Plan: 11.3 serum calcium follow closely - Time Critical Time spent with patient: 35 or more minutes
--- NOTE | 2017-07-21 12:20 | PDOC PROGRESS REPORT ---
Bedside Procedure - Central Line Right Internal jugular Time completed: 09:20 Consent obtained: Yes Central line pre-insertion: Sterile PPE donned, Betadine prep applied, Chloraprep applied, Sterile drapes applied Central line lumen type: Triple Anesthetic type: 1% Lidocaine Ultrasound guided: Yes Line secured with sutures: Yes Central line post-insertion: Blood return from lumens, Biopatch applied, Sutured , Sterile dressing applied, Position confirmed w/ CXR Complications: No
[2017-07-21] MEDS: VANCOMYCIN HCL 1,500 MG in DEXTROSE 5%-WATER 250 ML IV SCH ×2 (13:56→23:48)
[2017-07-21] MEDS ORDERED: LEVOFLOXACIN 750 MG/D5W RTU 750 MG/150 ML RTUPB IV SCH (18:00)
[2017-07-21] MEDS: MIDAZOLAM HCL 100 ML IV PRN (21:26)
[2017-07-22] MEDS: MORPHINE SULFATE 10 MG/ML INJ IV PRN ×3 (00:16→12:33)
[2017-07-22] MEDS: PROPOFOL 100 ML IV PRN ×8 (01:51→23:05)
[2017-07-22] MEDS: HYDROCORTISONE SOD SUCCINATE INJ/PF 100 MG/2 ML SDV IV SCH (01:52)
[2017-07-22] MEDS: IPRATROPIUM/ALBUTEROL 0.5-2.5 MG/3 ML AMPUL NEB SCH ×2 (02:01→07:43)
[2017-07-22] MEDS: MIDAZOLAM HCL 100 ML IV PRN ×7 (02:44→23:06)
[2017-07-22] MEDS: DEXTROSE 5%-NORMAL SALINE 1,000 ML IV PRN (06:06)
[2017-07-22 06:11] LABS: ARTERIAL BLOOD BASE EXCESS -1.9 mmol/L; ARTERIAL BLOOD O2 SATURATION 95.6 % (94-98)
[2017-07-22 06:24] LABS: ALANINE AMINOTRANSFERASE 53 U/L (21-72); ALBUMIN 2.1 g/dL (3.5-5.0); ALKALINE PHOSPHATASE 117 U/L (38-126); ANION GAP 8 (5-19); ASPARTATE AMINO TRANSFERASE 46 U/L (17-59); BILIRUBIN,DIRECT 0.4 mg/dL (0.0-0.4); BILIRUBIN,TOTAL 0.6 mg/dL (0.2-1.3); BLOOD UREA NITROGEN 22 mg/dL (7-20); CALCIUM 10.9 mg/dL (8.4-10.2); CARBON DIOXIDE 22 mmol/L (22-30); CHLORIDE 110 mmol/L (98-107); CREATININE RESULT 0.85 mg/dL (0.52-1.25); GLUCOSE 121 mg/dL (75-110); MAGNESIUM 1.7 mg/dL (1.6-2.3); SODIUM 139.8 mmol/L (137-145); TOTAL PROTEIN 4.9 g/dL (6.3-8.2); TRIGLYCERIDES 175 mg/dL (<150)
[2017-07-22 07:02] LABS: HEMATOCRIT 34.4 % (37.9-51.0); HEMOGLOBIN 10.9 g/dL (13.5-17.0); HGB HCT DIFFERENCE -1.7; MEAN CORPUSCULAR HEMOGLOBIN 27.3 pg (27.0-33.4); MEAN CORPUSCULAR HGB CONC 31.7 g/dL (32.0-36.0); MEAN CORPUSCULAR VOLUME 86 fl (80-97); RED BLOOD COUNT 3.98 10^6/uL (4.35-5.55); RED CELL DISTRIBUTION WIDTH 17.7 % (11.5-14.0); WHITE BLOOD COUNT 21.9 10^3/uL (4.0-10.5)
[2017-07-22 07:06] LABS: BASOPHILS % (MANUAL) 0 % (0-2); EOSINOPHILS % (MANUAL) 0 % (0-6); LYMPHOCYTES % (MANUAL) 6 % (13-45); TOTAL CELLS COUNTED 100
[2017-07-22 07:07] LABS: ANISOCYTOSIS 1+; BURR CELLS SLIGHT; OVALOCYTES SLIGHT; POIKILOCYTOSIS SLIGHT; POLYCHROMASIA SLIGHT; SCHISTOCYTES SLIGHT; TOXIC GRANULATION SLIGHT
[2017-07-22] MEDS ORDERED: FENTANYL CITRATE INJ/PF 100 MCG/2 ML AMPUL IV PRN (08:50)
--- NOTE | 2017-07-22 08:54 | RADIOLOGY REPORT (SQ) ---
EXAM DESCRIPTION: CHEST SINGLE VIEW COMPLETED DATE/TIME: 07/22/2017 8:06 am REASON FOR STUDY: et tUBE pLACEMENT COMPARISON: MULTIPLE SINCE 04/24/2017, most recently 07/22/2017 at 0612 hours EXAM PARAMETERS: NUMBER OF VIEWS: One view. TECHNIQUE: Single frontal radiographic view of the chest acquired. RADIATION DOSE: NA LIMITATIONS: None. FINDINGS: LUNGS AND PLEURA: Diffuse bilateral alveolar and interstitial infiltrates, trace pleural e ffusion on the left. These are unchanged from previous studies. No pneumothorax. No right pleural effusion MEDIASTINUM AND HILAR STRUCTURES: No masses. Contour normal. HEART AND VASCULAR STRUCTURES: Heart normal in size. BONES: No acute findings. HARDWARE: Tubes and lines in good positioning OTHER: No other significant finding. IMPRESSION: No change from yesterday TECHNICAL DOCUMENTATION: JOB ID: [id number]
[2017-07-22] MEDS ORDERED: FENTANYL 50 MCG/HR PATCH.TD72 TD SCH (09:00)
[2017-07-22 09:09] LABS: ARTERIAL BLOOD BASE EXCESS -2.9 mmol/L; ARTERIAL BLOOD O2 SATURATION 95.4 % (94-98)
--- NOTE | 2017-07-22 09:20 | PDOC PROGRESS REPORT ---
Subjective Progress Note for:: 07/22/17 Subjective:: Patient is much worse this morning, there is great difficulty and appropriately ventilating him, today had a long discussion with his significant other Linh , whom he had designated as his healthcare advocate, I discussed his case with his father as well as his sister both who live in [place]. I described the dire nature of his status, we discussed the possibility of imminent . We discussed that they needed to come down if they wanted to see him. He will be calling back and discussing this with the ICU, ultimately we need to get him to comfort care measures. Physical Exam Vital Signs: Temp Pulse Resp BP Pulse Ox 98.8 F 116 H 30 H 109/71 96 07/22/17 07:48 07/22/17 08:25 07/22/17 08:25 07/22/17 07:48 07/22/17 08:25 Intake & Output 07/21/17 07/22/17 07/23/17 06:59 06:59 06:59 Intake Total 791 4404 Output Total 1445 2230 150 Balance -654 2174 -150 Weight 64.3 kg 65.6 kg General appearance: PRESENT: mild distress Head exam: PRESENT: atraumatic Respiratory exam: PRESENT: accessory muscle use Rectal exam: PRESENT: deferred Neurological exam: PRESENT: other - Intubated sedated Results Laboratory Results: 07/22/17 05:53 07/22/17 05:53 07/21/17 07/22/17 07/22/17 10:10 05:45 05:53 WBC 21.9 H RBC 3.98 L Hgb 10.9 L Hct 34.4 L MCV 86 MCH 27.3 MCHC 31.7 L RDW 17.7 H Plt Count 197 Seg Neutrophils % Not Reportable Lymphocytes % Not Reportable Monocytes % Not Reportable Eosinophils % Not Reportable Basophils % Not Reportable Absolute Neutrophils Not Reportable Absolute Lymphocytes Not Reportable Absolute Monocytes Not Reportable Absolute Eosinophils Not Reportable Absolute Basophils Not Reportable Carbonic Acid 1.17 1.07 HCO3/H2CO3 Ratio 21:1 20:1 ABG pH 7.42 7.41 ABG pCO2 38.9 35.6 ABG pO2 100.1 H 77.1 L ABG HCO3 24.9 22.2 ABG O2 Saturation 97.7 95.6 ABG Base Excess 0.6 -1.9 FiO2 70% 60% Sodium Potassium Chloride Carbon Dioxide Anion Gap BUN Creatinine Est GFR ( Amer) Est GFR (Non-Af Amer) Glucose Calcium Magnesium Total Bilirubin AST ALT Alkaline Phosphatase Total Protein Albumin Triglycerides 07/22/17 07/22/17 05:53 09:00 WBC RBC Hgb Hct MCV MCH MCHC RDW Plt Count Seg Neutrophils % Lymphocytes % Monocytes % Eosinophils % Basophils % Absolute Neutrophils Absolute Lymphocytes Absolute Monocytes Absolute Eosinophils Absolute Basophils Carbonic Acid 1.04 L HCO3/H2CO3 Ratio 20:1 ABG pH 7.41 ABG pCO2 34.4 L ABG pO2 76.0 L ABG HCO3 21.1 ABG O2 Saturation 95.4 ABG Base Excess -2.9 FiO2 60% Sodium 139.8 Potassium 4.0 Chloride 110 H Carbon Dioxide 22 Anion Gap 8 BUN 22 H Creatinine 0.85 Est GFR ( Amer) > 60 Est GFR (Non-Af Amer) > 60 Glucose 121 H Calcium 10.9 H Magnesium 1.7 Total Bilirubin 0.6 AST 46 ALT 53 Alkaline Phosphatase 117 Total Protein 4.9 L Albumin 2.1 L Triglycerides 175 H 07/21/17 07/21/17 01:29 06:14 Troponin I 0.142 0.093 Impressions: Chest/Abdomen CTA 07/20/17 19:43 IMPRESSION: No emboli visualized in the main pulmonary arteries or the segmental branches. Mildly Increased bony collapse of the superior endplates of the T9 and T10 vertebral bodies. Progressive pulmonary metastatic disease. Abdomen/Pelvis CT 07/21/17 00:00 IMPRESSION: No acute findings. Interval worsening of known metastatic disease involves the skeleton, visualized lung bases, and possibly the neobladder. Limitations. Head CT 07/21/17 00:00 IMPRESSION: No acute findings. Limitation. Chest X-Ray 07/22/17 07:54 IMPRESSION: No change from yesterday Assessment & Plan - Diagnosis (1) Stage IV cancer of the bladder Is this a current diagnosis for this admission?: Yes Plan: As discussed previously, we need to get to comfort care measures, I believe family as well as his healthcare advocate Linh, will come to this decision in time, we will continue to discuss with family. Today spent greater than 45 minutes in coordination of care. - Time Time Spent with patient: 35 or more minutes Critical Time spent with patient: 35 or more minutes - Inpatient Certification Based on my medical assessment, after consideration of the patient's comorbidities, presenting symptoms, or acuity I expect that the services needed warrant INPATIENT care.: Yes I certify that my determination is in accordance with my understanding of Medicare's requirements for reasonable and necessary INPATIENT services [42 CFR 412.3e].: Yes Medical Necessity: Need For Continuous Telemetry Monitoring
--- NOTE | 2017-07-22 09:38 | RADIOLOGY REPORT (SQ) ---
EXAM DESCRIPTION: CHEST SINGLE VIEW COMPLETED DATE/TIME: 07/22/2017 6:29 am REASON FOR STUDY: resp failure COMPARISON: 07/21/2017, 0933 hours EXAM PARAMETERS: NUMBER OF VIEWS: One view. TECHNIQUE: Single frontal radiographic view of the chest acquired. RADIATION DOSE: NA LIMITATIONS: None. FINDINGS: LUNGS AND PLEURA: Diffuse alveolar and interstitial opacities are unchanged. Stable small left pleural effusion. No pneumothorax. MEDIASTINUM AND HILAR STRUCTURES: No masses. Contour normal. HEART AND VASCULAR STRUCTURES: No cardiomegaly BONES: No acute findings. HARDWARE: Tubes and lines in good positioning OTHER: No other significant finding. IMPRESSION: No change from yesterday TECHNICAL DOCUMENTATION: JOB ID: [id number]
[2017-07-22] MEDS: FAMOTIDINE INJ/PF 20 MG/2 ML SDV IV SCH (09:42)
[2017-07-22] MEDS: CEFEPIME 2 GM/D5W RTU 2 GM/50 ML RTUPB IV SCH (09:43)
[2017-07-22] MEDS: ENOXAPARIN SODIUM INJ 40 MG/0.4 ML DISP.SYRIN SUBCUT SCH (09:49)
[2017-07-22] MEDS ORDERED: CLONAZEPAM 1 MG TABLET NG SCH ×2 (10:00→22:00)
[2017-07-22] MEDS ORDERED: METOPROLOL TARTRATE 100 MG TABLET NG SCH (10:00)
[2017-07-22] MEDS ORDERED: HYDROCORTISONE SOD SUCCINATE INJ/PF 100 MG/2 ML SDV IV SCH (10:00)
[2017-07-22] MEDS ORDERED: FENTANYL 100 MCG/HR PATCH.TD72 TD SCH (10:00)
[2017-07-22] MEDS ORDERED: PAROXETINE HCL 20 MG TABLET PO SCH (10:00)
[2017-07-22] MEDS: LIDOCAINE 5% (700 MG) TRANSDERMAL ADH..PATCH TP SCH (11:08)
[2017-07-22] MEDS: VANCOMYCIN HCL 1,500 MG in DEXTROSE 5%-WATER 250 ML IV SCH (12:34)
[2017-07-22] MEDS ORDERED: ATROPINE SULFATE 1% OPH SOLN 5 ML BOTTLE SL PRN (13:05)
[2017-07-22] MEDS: LORAZEPAM INJ 2 MG/1 ML VIAL IV PRN ×5 (14:41→23:04)
[2017-07-22] MEDS: HYDROMORPHONE HCL INJ/PF 2 MG/ML AMPULE IV PRN ×4 (14:42→23:04)
--- NOTE | 2017-07-22 15:51 | PDOC PROGRESS REPORT ---
Subjective Progress Note for:: 07/22/17 Subjective:: Intubated and sedated Physical Exam Vital Signs: Temp Pulse Resp BP Pulse Ox 98.8 F 107 H 23 H 109/71 94 07/22/17 07:48 07/22/17 07:48 07/22/17 07:48 07/22/17 07:48 07/22/17 07:48 Intake & Output 07/21/17 07/22/17 07/23/17 06:59 06:59 06:59 Intake Total 791 4404 Output Total 1445 2230 150 Balance -654 2174 -150 Weight 64.3 kg 65.6 kg General appearance: PRESENT: no acute distress, disheveled, thin, well-developed Head exam: PRESENT: atraumatic, normocephalic Eye exam: PRESENT: conjunctiva pale Mouth exam: PRESENT: dry mucosa, neck supple, tongue midline, other - ET tube in place Neck exam: ABSENT: carotid bruit, JVD, lymphadenopathy, thyromegaly Respiratory exam: PRESENT: decreased breath sounds, prolonged expiratory phas, rales, rhonchi, symmetrical, wheezes. ABSENT: retraction, stridor, tachypnea, unlabored Cardiovascular exam: PRESENT: RRR, +S1, +S2 Pulses: PRESENT: normal radial pulses GI/Abdominal exam: PRESENT: normal bowel sounds, soft. ABSENT: distended, guarding, mass, organolmegaly, rebound, tenderness Rectal exam: PRESENT: deferred Gentrourinary exam: PRESENT: indwelling catheter Musculoskeletal exam: PRESENT: normal inspection Neurological exam: ABSENT: awake Psychiatric exam: ABSENT: normal mood Skin exam: PRESENT: dry, warm Results Laboratory Results: 07/22/17 05:53 07/22/17 05:53 07/21/17 07/22/17 07/22/17 10:10 05:45 05:53 WBC 21.9 H RBC 3.98 L Hgb 10.9 L Hct 34.4 L MCV 86 MCH 27.3 MCHC 31.7 L RDW 17.7 H Plt Count 197 Seg Neutrophils % Not Reportable Lymphocytes % Not Reportable Monocytes % Not Reportable Eosinophils % Not Reportable Basophils % Not Reportable Absolute Neutrophils Not Reportable Absolute Lymphocytes Not Reportable Absolute Monocytes Not Reportable Absolute Eosinophils Not Reportable Absolute Basophils Not Reportable Carbonic Acid 1.17 1.07 HCO3/H2CO3 Ratio 21:1 20:1 ABG pH 7.42 7.41 ABG pCO2 38.9 35.6 ABG pO2 100.1 H 77.1 L ABG HCO3 24.9 22.2 ABG O2 Saturation 97.7 95.6 ABG Base Excess 0.6 -1.9 FiO2 70% 60% Sodium Potassium Chloride Carbon Dioxide Anion Gap BUN Creatinine Est GFR ( Amer) Est GFR (Non-Af Amer) Glucose Calcium Magnesium Total Bilirubin AST ALT Alkaline Phosphatase Total Protein Albumin Triglycerides 07/22/17 05:53 WBC RBC Hgb Hct MCV MCH MCHC RDW Plt Count Seg Neutrophils % Lymphocytes % Monocytes % Eosinophils % Basophils % Absolute Neutrophils Absolute Lymphocytes Absolute Monocytes Absolute Eosinophils Absolute Basophils Carbonic Acid HCO3/H2CO3 Ratio ABG pH ABG pCO2 ABG pO2 ABG HCO3 ABG O2 Saturation ABG Base Excess FiO2 Sodium 139.8 Potassium 4.0 Chloride 110 H Carbon Dioxide 22 Anion Gap 8 BUN 22 H Creatinine 0.85 Est GFR ( Amer) > 60 Est GFR (Non-Af Amer) > 60 Glucose 121 H Calcium 10.9 H Magnesium 1.7 Total Bilirubin 0.6 AST 46 ALT 53 Alkaline Phosphatase 117 Total Protein 4.9 L Albumin 2.1 L Triglycerides 175 H 07/21/17 07/21/17 01:29 06:14 Troponin I 0.142 0.093 Impressions: Chest/Abdomen CTA 07/20/17 19:43 IMPRESSION: No emboli visualized in the main pulmonary arteries or the segmental branches. Mildly Increased bony collapse of the superior endplates of the T9 and T10 vertebral bodies. Progressive pulmonary metastatic disease. Abdomen/Pelvis CT 07/21/17 00:00 IMPRESSION: No acute findings. Interval worsening of known metastatic disease involves the skeleton, visualized lung bases, and possibly the neobladder. Limitations. Head CT 07/21/17 00:00 IMPRESSION: No acute findings. Limitation. Assessment & Plan - Diagnosis (1) Acute respiratory failure with hypoxemia Is this a current diagnosis for this admission?: Yes Plan: Oxygenating and ventilating becoming increasingly more difficult have gone to bilevel mode of ventilation (3) Hypercalcemia Is this a current diagnosis for this admission?: Yes (4) Metastatic cancer Is this a current diagnosis for this admission?: Yes Plan: Prolonged discussion with family Dr.Andressa Nashatizadeh Dr. Jayaram nurses is agreed upon that the patient would be made comfort care - Time Critical Time spent with patient: 35 or more minutes - 90 minutes
--- NOTE | 2017-07-22 16:13 | PDOC PROGRESS REPORT ---
Subjective Progress Note for:: 07/22/17 Subjective:: Patient is intubated and sedated and mechanically ventilated. Patient, however , is tachypneic, tachycardic, and hypoxic patient seen with. Pulmonary medicine at bedside Physical Exam Vital Signs: Temp Pulse Resp BP Pulse Ox 100.8 F H 125 H 19 113/70 96 07/22/17 14:42 07/22/17 14:00 07/22/17 14:42 07/22/17 14:42 07/22/17 14:42 Intake & Output 07/21/17 07/22/17 07/23/17 06:59 06:59 06:59 Intake Total 791 4404 Output Total 1445 2230 430 Balance -654 2174 -430 Weight 64.3 kg 65.6 kg Exam: General: Intubated, sedated, mechanically ventilated HEENT: AT/NC, oropharynx is moist, pink, no conjunctival injection Neck: No JVD, trachea midline Chest: Tachypnea, moderate respiratory distress, rales bilaterally CV: Tachycardic, regular rate and rhythm, normal S1 and S2, no rub or gallop Abdomen: Soft, distended, hypoactive bowel sounds Extremities: No cyanosis, clubbing or edema Results Laboratory Results: 07/22/17 05:53 07/22/17 05:53 07/22/17 07/22/17 07/22/17 05:45 05:53 05:53 WBC 21.9 H RBC 3.98 L Hgb 10.9 L Hct 34.4 L MCV 86 MCH 27.3 MCHC 31.7 L RDW 17.7 H Plt Count 197 Seg Neutrophils % Not Reportable Lymphocytes % Not Reportable Monocytes % Not Reportable Eosinophils % Not Reportable Basophils % Not Reportable Absolute Neutrophils Not Reportable Absolute Lymphocytes Not Reportable Absolute Monocytes Not Reportable Absolute Eosinophils Not Reportable Absolute Basophils Not Reportable Carbonic Acid 1.07 HCO3/H2CO3 Ratio 20:1 ABG pH 7.41 ABG pCO2 35.6 ABG pO2 77.1 L ABG HCO3 22.2 ABG O2 Saturation 95.6 ABG Base Excess -1.9 FiO2 60% Sodium 139.8 Potassium 4.0 Chloride 110 H Carbon Dioxide 22 Anion Gap 8 BUN 22 H Creatinine 0.85 Est GFR ( Amer) > 60 Est GFR (Non-Af Amer) > 60 Glucose 121 H Calcium 10.9 H Magnesium 1.7 Total Bilirubin 0.6 AST 46 ALT 53 Alkaline Phosphatase 117 Total Protein 4.9 L Albumin 2.1 L Triglycerides 175 H 07/22/17 09:00 WBC RBC Hgb Hct MCV MCH MCHC RDW Plt Count Seg Neutrophils % Lymphocytes % Monocytes % Eosinophils % Basophils % Absolute Neutrophils Absolute Lymphocytes Absolute Monocytes Absolute Eosinophils Absolute Basophils Carbonic Acid 1.04 L HCO3/H2CO3 Ratio 20:1 ABG pH 7.41 ABG pCO2 34.4 L ABG pO2 76.0 L ABG HCO3 21.1 ABG O2 Saturation 95.4 ABG Base Excess -2.9 FiO2 60% Sodium Potassium Chloride Carbon Dioxide Anion Gap BUN Creatinine Est GFR ( Amer) Est GFR (Non-Af Amer) Glucose Calcium Magnesium Total Bilirubin AST ALT Alkaline Phosphatase Total Protein Albumin Triglycerides 07/21/17 07/21/17 01:29 06:14 Troponin I 0.142 0.093 Impressions: Chest/Abdomen CTA 07/20/17 19:43 IMPRESSION: No emboli visualized in the main pulmonary arteries or the segmental branches. Mildly Increased bony collapse of the superior endplates of the T9 and T10 vertebral bodies. Progressive pulmonary metastatic disease. Abdomen/Pelvis CT 07/21/17 00:00 IMPRESSION: No acute findings. Interval worsening of known metastatic disease involves the skeleton, visualized lung bases, and possibly the neobladder. Limitations. Head CT 07/21/17 00:00 IMPRESSION: No acute findings. Limitation. Chest X-Ray 07/22/17 07:54 IMPRESSION: No change from yesterday Assessment & Plan - Diagnosis (1) Acute respiratory failure with hypoxemia Is this a current diagnosis for this admission?: Yes (2) Chronic, continuous use of opioids Is this a current diagnosis for this admission?: Yes (3) Elevated troponin Is this a current diagnosis for this admission?: Yes (4) Hypercalcemia Is this a current diagnosis for this admission?: Yes (5) Stage IV cancer of the bladder Is this a current diagnosis for this admission?: Yes (6) Steroid dependence Is this a current diagnosis for this admission?: Yes (7) Chronic pain due to neoplasm Is this a current diagnosis for this admission?: Yes (8) Immunosuppressed status Is this a current diagnosis for this admission?: Yes - Plan Summary Plan Summary: I discussed his current plan of care with his oncologist, pulmonary medicine physician, and his mother. At this time, she has elected to make him comfort measures only, but we will hold on terminal extubation for the arrival of his father from out of state. She has elected to make him a DNR/DNI. Patient, currently has metastatic bladder cancer with a large tumor bulk in his lungs bilaterally and is becoming increasingly difficult to ventilate and has been changed to a bi-vent setting. At this time, all physicians are in agreement that patient would benefit from palliative care, and in fact oncology offered this patient hospice approximately 1 month ago. Mother, surrogate decision maker, is in agreement with this plan. We will place patient on Ativan, fentanyl, Dilaudid, and atropine as needed. Terminal extubation will be performed upon family request after father is able to visit patient. Total time spent with patient including physical examination, discussion with consultants, coordination of care, and discussion with patient family and formulation of this plan was 45 minutes of time
[2017-07-22] MEDS: FENTANYL CITRATE INJ/PF 100 MCG/2 ML AMPUL IV PRN (16:51)
[2017-07-23] MEDS: PROPOFOL 100 ML IV PRN ×2 (01:58→07:30)
[2017-07-23] MEDS: MIDAZOLAM HCL 100 ML IV PRN ×2 (01:59→07:29)
[2017-07-23] MEDS: FENTANYL CITRATE INJ/PF 100 MCG/2 ML AMPUL IV PRN ×3 (08:51→13:40)
--- NOTE | 2017-07-23 09:13 | PDOC PROGRESS REPORT ---
Subjective Progress Note for:: 07/23/17 Subjective:: Pt intubated, sedated, today had discussion w/ family at bedside, awaiting father and sister coming from NH, they left this am at 3. Physical Exam Vital Signs: Temp Pulse Resp BP Pulse Ox 99.9 F 116 H 25 H 76/48 L 92 07/23/17 06:00 07/23/17 07:48 07/23/17 06:00 07/23/17 05:56 07/23/17 06:00 Intake & Output 07/22/17 07/23/17 07/24/17 06:59 06:59 06:59 Intake Total 4404 3240 Output Total 2230 1355 Balance 2174 1885 Weight 65.6 kg 69.4 kg Additional comments: No changes from yesterday, more mottled appearance Results Laboratory Results: 07/22/17 05:53 07/22/17 05:53 07/21/17 07/21/17 01:29 06:14 Troponin I 0.142 0.093 Impressions: Chest/Abdomen CTA 07/20/17 19:43 IMPRESSION: No emboli visualized in the main pulmonary arteries or the segmental branches. Mildly Increased bony collapse of the superior endplates of the T9 and T10 vertebral bodies. Progressive pulmonary metastatic disease. Abdomen/Pelvis CT 07/21/17 00:00 IMPRESSION: No acute findings. Interval worsening of known metastatic disease involves the skeleton, visualized lung bases, and possibly the neobladder. Limitations. Head CT 07/21/17 00:00 IMPRESSION: No acute findings. Limitation. Chest X-Ray 07/22/17 07:54 IMPRESSION: No change from yesterday Assessment & Plan - Diagnosis (1) Stage IV cancer of the bladder Is this a current diagnosis for this admission?: Yes Plan: Planned for comfort care once family arrives, cont intubated status until then. Spent 45min in coordination of care this am. - Time Time Spent with patient: 35 or more minutes Critical Time spent with patient: 35 or more minutes
[2017-07-23] MEDS: LIDOCAINE 5% (700 MG) TRANSDERMAL ADH..PATCH TP SCH (09:30)
[2017-07-23] MEDS: HYDROMORPHONE HCL INJ/PF 2 MG/ML AMPULE IV PRN ×6 (09:33→14:28)
--- NOTE | 2017-07-23 11:07 | PDOC PROGRESS REPORT ---
Subjective Progress Note for:: 07/23/17 Subjective:: Intubated and sedated Physical Exam Vital Signs: Temp Pulse Resp BP Pulse Ox 99.5 F 116 H 25 H 90/56 L 92 07/23/17 10:00 07/23/17 07:48 07/23/17 10:00 07/23/17 08:14 07/23/17 10:00 Intake & Output 07/22/17 07/23/17 07/24/17 06:59 06:59 06:59 Intake Total 4404 3240 Output Total 2230 1355 37 Balance 2174 1885 -37 Weight 65.6 kg 69.4 kg General appearance: PRESENT: no acute distress, disheveled, thin, well-developed Head exam: PRESENT: atraumatic, normocephalic Eye exam: PRESENT: conjunctiva pale Mouth exam: PRESENT: dry mucosa, neck supple, tongue midline, other - ET tube in place Neck exam: ABSENT: carotid bruit, JVD, lymphadenopathy, thyromegaly Respiratory exam: PRESENT: decreased breath sounds, prolonged expiratory phas, rhonchi, symmetrical, unlabored. ABSENT: rales, retraction, stridor, tachypnea , wheezes Cardiovascular exam: PRESENT: RRR, +S1, +S2 Pulses: PRESENT: normal radial pulses GI/Abdominal exam: PRESENT: normal bowel sounds, soft. ABSENT: distended, guarding, mass, organolmegaly, rebound, tenderness Rectal exam: PRESENT: deferred Gentrourinary exam: PRESENT: indwelling catheter Musculoskeletal exam: PRESENT: normal inspection Skin exam: PRESENT: dry, warm Results Laboratory Results: 07/22/17 05:53 07/22/17 05:53 07/21/17 00:00 Catheterized Urine Urine Culture - Final Staphylococcus Aureus 07/21/17 17:03 Nasophary ([facility] Only) MRSA Surveillance Culture - Final NO MRSA RECOVERED 07/21/17 07/21/17 01:29 06:14 Troponin I 0.142 0.093 Impressions: Chest/Abdomen CTA 07/20/17 19:43 IMPRESSION: No emboli visualized in the main pulmonary arteries or the segmental branches. Mildly Increased bony collapse of the superior endplates of the T9 and T10 vertebral bodies. Progressive pulmonary metastatic disease. Abdomen/Pelvis CT 07/21/17 00:00 IMPRESSION: No acute findings. Interval worsening of known metastatic disease involves the skeleton, visualized lung bases, and possibly the neobladder. Limitations. Head CT 07/21/17 00:00 IMPRESSION: No acute findings. Limitation. Chest X-Ray 07/22/17 07:54 IMPRESSION: No change from yesterday Assessment & Plan - Diagnosis (1) Acute respiratory failure with hypoxemia Is this a current diagnosis for this admission?: Yes (2) Chronic, continuous use of opioids Is this a current diagnosis for this admission?: Yes (3) Hypercalcemia Is this a current diagnosis for this admission?: Yes (4) Metastatic cancer Is this a current diagnosis for this admission?: Yes Plan: Patient placed on comfort care I concur awaiting arrival of father to proceed with extubation
[2017-07-23] MEDS: LORAZEPAM INJ 2 MG/1 ML VIAL IV PRN ×3 (11:30→13:40)
[2017-07-23 13:58] VITALS: BP 74/41
--- NOTE | 2017-07-23 18:40 | Death Summary ---
Summary Date : 07/23/17 Time of :: 14:47 Autopsy: No Resuscitation Status: Comfort Measures Only Primary Care Provider: Dr. Luis - Final Diagnosis (1) Stage IV cancer of the bladder Is this a current diagnosis for this admission?: Yes (2) Acute respiratory failure with hypoxemia Is this a current diagnosis for this admission?: Yes (3) Chronic, continuous use of opioids Is this a current diagnosis for this admission?: Yes (4) Elevated troponin Is this a current diagnosis for this admission?: Yes (5) Hypercalcemia Is this a current diagnosis for this admission?: Yes (6) Steroid dependence Is this a current diagnosis for this admission?: Yes (7) Chronic pain due to neoplasm Is this a current diagnosis for this admission?: Yes (8) Immunosuppressed status Is this a current diagnosis for this admission?: Yes Hospital Course:: Patient was a 36-year-old male with a known history of 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 According to his oncologist he had been offered hospice approximately 1 month prior. Patient was noted to be hypoxic on presentation and subsequently intubated as he reported he wanted us to "do everything". Patient was started on broad-spectrum antibiotic coverage and pulmonary medicine was consulted for this patient. Oncology was also consulted for this patient. On I discussed his case with his mother as patient is becoming increasingly difficult to ventilate secondary to his widespread pulmonary involvement of his malignancy and the decision was made to make him comfort measures. Patient was made comfort measures, but was not extubated secondary to family arriving from out of town, patient unfortunately passed prior to terminal extubation. He was pronounced by 2 RNs. No autopsy was requested.
== END 2017-07-23 14:47 | DRG 208 ==
LOC: ER 19:15 → UNDOADMIN 21:51 → EH 21:51 → ICU 23:39 → EH 23:43
PROVIDERS: ADMIT Family Medicine; ATTEND Family Medicine
PROC: 5A1945Z Respiratory Ventilation, 24-96 Consecutive Hours (ICD-10-PCS; principal; 2017-07-20)
PROC: 3E0F73Z Introduction of Anti-inflammatory into Respiratory Tract, Via Natural or Artificial Opening (ICD-10-PCS; 2017-07-20)
PROC: 5A09357 Assistance with Respiratory Ventilation, Less than 24 Consecutive Hours, Continuous Positive Airway Pressure (ICD-10-PCS; 2017-07-20)
PROC: 0BH17EZ Insertion of Endotracheal Airway into Trachea, Via Natural or Artificial Opening (ICD-10-PCS; 2017-07-20)
PROC: 02HV33Z Insertion of Infusion Device into Superior Vena Cava, Percutaneous Approach (ICD-10-PCS; 2017-07-21)
DX: J96.01 Acute respiratory failure with hypoxia (principal); C79.51 Secondary malignant neoplasm of bone; C78.01 Secondary malignant neoplasm of right lung; C78.02 Secondary malignant neoplasm of left lung; C79.31 Secondary malignant neoplasm of brain; C77.2 Secondary and unspecified malignant neoplasm of intra-abdominal lymph nodes; C67.9 Malignant neoplasm of bladder, unspecified; E83.52 Hypercalcemia; G89.3 Neoplasm related pain (acute) (chronic); I10 Essential (primary) hypertension; K21.9 Gastro-esophageal reflux disease without esophagitis; F90.9 Attention-deficit hyperactivity disorder, unspecified type; F32.9 Major depressive disorder, single episode, unspecified; F41.1 Generalized anxiety disorder; Z51.5 Encounter for palliative care; F17.210 Nicotine dependence, cigarettes, uncomplicated; Z79.52 Long term (current) use of systemic steroids; Z79.899 Other long term (current) drug therapy; Z79.891 Long term (current) use of opiate analgesic; Z80.9 Family history of malignant neoplasm, unspecified; Z82.49 Family history of ischemic heart disease and other diseases of the circulatory system; Z80.42 Family history of malignant neoplasm of prostate; Z90.79 Acquired absence of other genital organ(s); Z78.1 Physical restraint status
CPT/HCPCS: 31500; 36415; 70450; 71010; 71275; 74176; 80048; 80053; 81001; 82803; 82962; 83690; 83735; 84478; 84484; 85025; 85610; 85730; 87040; 87070; 87086; 87088; 87186; 87205; 93005; 93010; 94002; 94003; 94640; 94660; 96365; 96375; 99291; C1751; J0330; J0692; J1170; J1650; J1720; J1956; J2060; J2250; J2270; J2704; J3010; J3370; J3490; J7030; J7060; J7620; S0028